=== PATIENT | male | born 1950 | race Caucasian/White ===

== ENCOUNTER → 2018-02-22 08:05 | Outpatient (CLI) | payer MEDICARE, SELFPAY ==
[2018-02-22 09:46] LABS: AST(SGOT) 24 U/L (15-37); Alanine Aminotransfer ALT/SGPT 29 U/L (16-61); Albumin, Serum 4.1 g/dL (3.2-5.0); Alkaline Phosphatase 79 U/L (45-117); Bilirubin, Direct 0.14 mg/dL (0.00-0.30); Cholesterol 220 mg/dL (200); Globulin 3.8 g/dL (2.2-4.2); High Density Lipoprotein 35 mg/dL; Protein, Total 7.9 g/dL (6.4-8.2); Triglycerides 229 mg/dL; Very Low Density Lipoprotein 46 mg/dL (5-40)
== END ==
PROVIDERS: Family Provider Physician Assistant Medical; PCP Family Medicine; Visit Provider Physician Assistant Medical
DX: E78.5 Hyperlipidemia, unspecified (principal); Z79.899 Other long term (current) drug therapy
CPT/HCPCS: 36415; 80061; 80076

== ENCOUNTER → 2018-08-02 14:07 | Outpatient (CLI) | payer MEDICARE, SELFPAY ==
[2018-08-02 15:04] LABS: Absolute Lymphocyte Count 1.73 X10^3/ul (0.83-4.51); Absolute Neutrophil Count 5.2 X10^3/uL (2.0-7.7); Basophil# 0.03 X10^3/uL; Basophil% 0.4 % (0-1); Eosinophil# 0.18 X10^3/uL; Eosinophils% 2.3 % (0-5); Hematocrit 43.7 % (40-54); Hemoglobin 15.4 g/dl (13.0-16.5); Lymphocyte # 1.73 X10^3/ul (4.0); Lymphocyte % 22.3 % (19-41); Mean Corp Hgb Conc 35.2 g/gl (32-36); Mean Corpuscular Hgb 30.6 pg (27.0-32.0); Mean Corpuscular Volume 86.7 fL (80-94); Mean Platelet Vol. 9.3 fl (6.2-12.0); Monocyte# 0.58 X10^3/uL; Monocyte% 7.5 % (0-10); Neutrophil # 5.23 X10^3/uL (2.7-7.7); Neutrophil % 67.4 % (47-70); Platelet Count 283 K/mm3 (150-450); RBC Distribution Width SD 40.4 fl (35.1-43.9); Red Blood Count 5.04 M/mm3 (4.6-6.2); White Blood Count 7.8 K/mm3 (4.4-11.0)
[2018-08-02 15:06] LABS: POSITIVE COUNT NO; POSITIVE DIFFERENTIAL NO; POSITIVE MORPHOLOGY NO
[2018-08-02 15:28] LABS: ALB/GLOB Ratio 1.1 RATIO (0.9-2.4); AST(SGOT) 26 U/L (15-37); Alanine Aminotransfer ALT/SGPT 36 U/L (16-61); Albumin, Serum 4.3 g/dL (3.2-5.0); Alkaline Phosphatase 81 U/L (45-117); Anion Gap 10 (5-15); BUN 16 mg/dL (7-18); BUN/Creat Ratio 13.7 RATIO (10-20); Chloride 105 mmol/L (98-107); Cholesterol 233 mg/dL (200); Creatinine, Serum 1.17 mg/dL (0.70-1.30); EST Glomerular Filtration Rate 66 mL/min (>60); Est Glom Filt Rate - Afr Amer 80 mL/min (>60); Globulin 3.8 g/dL (2.2-4.2); Glucose 77 mg/dL (74-106); High Density Lipoprotein 39 mg/dL; PSA,Total - Annual Screen 2.65 ng/mL (0.00-4.00); Potassium 3.9 mmol/L (3.5-5.1); Protein, Total 8.1 g/dL (6.4-8.2); Sodium Level 140 mmol/L (136-145); Triglycerides 250 mg/dL; Very Low Density Lipoprotein 50 mg/dL (5-40)
== END ==
PROVIDERS: Family Provider Family Medicine; PCP Family Medicine; Referring Provider Family Medicine; Visit Provider Family Medicine
DX: I25.10 Atherosclerotic heart disease of native coronary artery without angina pectoris (principal); E78.5 Hyperlipidemia, unspecified; Z51.81 Encounter for therapeutic drug level monitoring; Z12.5 Encounter for screening for malignant neoplasm of prostate
CPT/HCPCS: 36415; 80053; 80061; 84153; 85025; G0103

== ENCOUNTER → 2018-10-05 10:33 | Outpatient (CLI) | payer MEDICARE, SELFPAY ==
[2018-02-26 13:09] VITALS: BMI 29.0
[2018-10-05 12:10] LABS: AST(SGOT) 30 U/L (15-37); Alanine Aminotransfer ALT/SGPT 43 U/L (16-61); Albumin, Serum 4.1 g/dL (3.2-5.0); Alkaline Phosphatase 75 U/L (45-117); Bilirubin, Direct 0.14 mg/dL (0.00-0.30); Cholesterol 238 mg/dL (200); Globulin 3.9 g/dL (2.2-4.2); High Density Lipoprotein 41 mg/dL; Triglycerides 220 mg/dL; Very Low Density Lipoprotein 44 mg/dL (5-40)
== END ==
PROVIDERS: Family Provider Family Medicine; PCP Family Medicine; Referring Provider Physician Assistant Medical; Visit Provider Physician Assistant Medical
DX: E78.00 Pure hypercholesterolemia, unspecified (principal); I25.10 Atherosclerotic heart disease of native coronary artery without angina pectoris
CPT/HCPCS: 36415; 80061; 80076

== ENCOUNTER → 2019-04-11 11:47 | Outpatient (CLI) | payer MEDICARE, SELFPAY ==
[2018-10-14 13:06] VITALS: BMI 29.8
[2019-04-11 12:43] LABS: AST(SGOT) 25 U/L (15-37); Alanine Aminotransfer ALT/SGPT 38 U/L (16-61); Albumin, Serum 4.1 g/dL (3.2-5.0); Alkaline Phosphatase 79 U/L (45-117); Bilirubin, Direct 0.15 mg/dL (0.00-0.30); Cholesterol 174 mg/dL (200); Globulin 3.7 g/dL (2.2-4.2); High Density Lipoprotein 36 mg/dL; Protein, Total 7.8 g/dL (6.4-8.2); Triglycerides 213 mg/dL; Very Low Density Lipoprotein 43 mg/dL (5-40)
== END ==
PROVIDERS: Family Provider Family Medicine; PCP Family Medicine; Referring Provider Internal Medicine Cardiovascular Disease; Visit Provider Internal Medicine Cardiovascular Disease
DX: E78.5 Hyperlipidemia, unspecified (principal); I25.10 Atherosclerotic heart disease of native coronary artery without angina pectoris
CPT/HCPCS: 36415; 80061; 80076

== ENCOUNTER → 2019-05-02 05:57 | Outpatient (CLI) | payer MEDICARE, SELFPAY ==
[2019-04-14 14:30] VITALS: BMI 29.5
--- NOTE | 2019-05-02 16:57 | STRESSREP_ITS ---
Stress Test Report Exercise myocardial perfusion stress test. 68-year-old man with a history of shortness of breath coronary artery disease. Medications Plavix, metoprolol, pravastatin, losartan. Stress protocol: Resting EKG demonstrates normal sinus rhythm with a rate of 60 bpm normal dorsal noted resting blood pressure 730/70 8 mmHg. The patient exercised according to regular Monty protocol for a total duration of 9 minutes the maximum heart rate attained was 146 bpm which was 95% of maximum corrected heart rate and maximum workload was 10.1 metabolic equivalents. The patient maintained sinus rhythm throughout the recording. At rest there were no ST or T wave changes noted just ischemia at peak exercise upsloping ST changes were noted with no [facility] for ischemia. The resting blood pressure 130/78 with a peak blood pressure 178/68 mmHg. No clinical angina was noted. Myocardial perfusion protocol. 11.4 mCi of player piano technician 90 9M sestamibi was injected at rest. The patient exercised according to regular Monty protocol. At peak exercise 33.8 mCi of technetium 99m sestamibi was injected stress images obtained stress and rest volodymyr ges were reconstructed in comparing the short axis vertical and horizontal long axes. Gated images was obtained back Perfusion SPECT analysis: Review of the stress images demonstrate normal uptake of tracer noted in all areas of the myocardium. The resting images similarly demonstrate normal uptake of tracer noted in all areas of myocardium. No areas of reversibility and was just ischemia. Gated SPECT analysis: The gated ejection fraction is noted to be 59%. Conclusion: Normal exercise marker perfusion stress test at a high workload. No clinical angina noted No arrhythmias noted. Excellent functional capacity. Preserved ejection fraction.
== END ==
PROVIDERS: Family Provider Family Medicine; PCP Family Medicine; Referring Provider Physician Assistant Medical; Visit Provider Physician Assistant Medical
DX: R06.09 Other forms of dyspnea (principal); I25.10 Atherosclerotic heart disease of native coronary artery without angina pectoris
CPT/HCPCS: 78452; 93017; A9500; A4216

== ENCOUNTER → 2019-08-23 13:19 | Outpatient (CLI) | payer MEDICARE, SELFPAY ==
[2018-10-14 13:06] VITALS: BMI 29.8
[2019-04-14 14:30] VITALS: BMI 29.5
[2019-08-23 15:34] LABS: Absolute Lymphocyte Count 1.56 X10^3/uL (0.83-4.51); Absolute Neutrophil Count 4.1 X10^3/uL (2.0-7.7); Basophil# 0.05 X10^3/uL; Basophil% 0.8 % (0-1); Eosinophil# 0.22 X10^3/uL; Eosinophils% 3.4 % (0-5); Hematocrit 44.8 % (40-54); Hemoglobin 15.3 g/dL (13.0-16.5); Lymphocyte # 1.56 X10^3/ul (4.0); Lymphocyte % 24.5 % (19-41); Mean Corp Hgb Conc 34.2 g/dL (32-36); Mean Corpuscular Hgb 30.5 pg (27.0-32.0); Mean Corpuscular Volume 89.4 fL (80-94); Mean Platelet Vol. 9.2 fl (6.2-12.0); Monocyte# 0.47 X10^3/uL; Monocyte% 7.4 % (0-10); NRBC Flagged by Analyzer 0 % (0-5); Neutrophil # 4.05 X10^3/uL (2.7-7.7); Neutrophil % 63.4 % (47-70); Platelet Count 269 K/mm3 (150-450); RBC Distribution Width CV 12.8 % (11.6-14.6); RBC Distribution Width SD 41.7 fl (35.1-43.9); Red Blood Count 5.01 M/mm3 (4.6-6.2); White Blood Count 6.4 K/mm3 (4.4-11.0)
[2019-08-23 16:44] LABS: ALB/GLOB Ratio 1.3 RATIO (0.9-2.4); AST(SGOT) 31 U/L (15-37); Alanine Aminotransfer ALT/SGPT 45 U/L (16-61); Albumin, Serum 4.4 g/dL (3.2-5.0); Alkaline Phosphatase 75 U/L (45-117); Anion Gap 8 (5-15); BUN 15 mg/dL (7-18); BUN/Creat Ratio 14.3 RATIO (10-20); Chloride 105 mmol/L (98-107); Creatinine, Serum 1.05 mg/dL (0.70-1.30); EST Glomerular Filtration Rate 75 mL/min (>60); Est Glom Filt Rate - Afr Amer 90 mL/min (>60); Globulin 3.5 g/dL (2.2-4.2); Glucose 69 mg/dL (74-106); PSA,Total - Annual Screen 1.65 ng/mL (0.00-4.00); Potassium 3.9 mmol/L (3.5-5.1); Protein, Total 7.9 g/dL (6.4-8.2); Sodium Level 139 mmol/L (136-145)
== END ==
PROVIDERS: Family Provider Family Medicine; PCP Family Medicine; Referring Provider Family Medicine; Visit Provider Family Medicine
DX: I25.10 Atherosclerotic heart disease of native coronary artery without angina pectoris (principal); E78.5 Hyperlipidemia, unspecified; Z12.5 Encounter for screening for malignant neoplasm of prostate; Z51.81 Encounter for therapeutic drug level monitoring
CPT/HCPCS: 36415; 80053; 84153; 85025; G0103

== ENCOUNTER → 2020-04-11 08:32 | Outpatient (CLI) | payer MEDICARE, SELFPAY ==
[2019-04-14 14:30] VITALS: BMI 29.5
[2020-04-11 09:36] LABS: AST(SGOT) 27 U/L (15-37); Alanine Aminotransfer ALT/SGPT 47 U/L (16-61); Albumin, Serum 4.1 g/dL (3.2-5.0); Alkaline Phosphatase 73 U/L (45-117); Bilirubin, Direct 0.17 mg/dL (0.00-0.30); Cholesterol 187 mg/dL (200); Globulin 3.8 g/dL (2.2-4.2); High Density Lipoprotein 38 mg/dL; Protein, Total 7.9 g/dL (6.4-8.2); Triglycerides 218 mg/dL; Very Low Density Lipoprotein 44 mg/dL (5-40)
== END ==
PROVIDERS: PCP Family Medicine; Referring Provider Physician Assistant Medical; Visit Provider Physician Assistant Medical
DX: E78.5 Hyperlipidemia, unspecified (principal)
CPT/HCPCS: 36415; 80061; 80076

== ENCOUNTER 2020-06-25 17:36 | Emergency (ER) | payer MEDICARE, SELFPAY ==
[2020-04-12 14:37] VITALS: BMI 29.7
[2020-06-25 17:36] VITALS: BP 127/87; PULSE 133; RESP 24; TEMP 37.6; O2SAT 93; BMI 29.8
--- NOTE | 2020-06-25 18:01 | RAD_ITS ---
STUDY: X-RAY CHEST REASON FOR EXAM: Male, 70 years old. Chest pain, palpitations. Patient believes to have a-fib. TECHNIQUE: Single AP portable view of the chest. COMPARISON: 02/29/2016. FINDINGS: The lungs are clear and expanded. There is no demonstrated pleural abnormality. Normal size heart. Normal mediastinum and shannan. Normal visualized pulmonary arteries. Normal visualized aortic arch and descending thoracic aorta. Normal visualized thoracic spine. Normal visualized ribs, clavicles, and shoulders. There is no demonstrated abnormality of the visualized soft tissue structures of the upper abdomen. RAD/Chest 1 View (Portable) IMPRESSION: Normal x-ray examination of the chest. Electronically Signed: Olivia Estevez MD at 18:57 EDT Tel , Service support ,
--- NOTE | 2020-06-25 18:01 | EKG12_ITS ---
Test Reason : Blood Pressure : / mmHG Vent. Rate : 133 BPM Atrial Rate : 133 BPM P-R Int : 164 ms QRS Dur : 094 ms QT Int : 284 ms P-R-T Axes : 078 027 029 degrees QTc Int : 422 ms Sinus tachycardia Nonspecific ST abnormality Abnormal ECG Confirmed by MAMADOU GALO, MERY ([id number]), newspaper copy editor SOL MUSA ([id number]) on 06/27/2020 1:03:14 PM Referred By: KETTY Confirmed By:MERY CEDILLO MD
[2020-06-25] MEDS: 0.9% Normal Saline 1,000 ML 1000 ML IV (18:10)
[2020-06-25] MEDS: Aspirin 81 MG TAB.CHEW 324 MG PO (18:11)
[2020-06-25] MEDS: dilTIAZem 25 MG/5 ML Vial 20 MG IV BOLUS (18:12)
[2020-06-25 18:39] LABS: Anion Gap 5 (5-15); BUN 18 mg/dL (7-18); BUN/Creat Ratio 14.9 RATIO (10-20); Calcium,Total 9.2 mg/dL (8.5-10.1); Chloride 107 mmol/L (98-107); Creatinine, Serum 1.21 mg/dL (0.70-1.30); EST Glomerular Filtration Rate 63 mL/min (>60); Est Glom Filt Rate - Afr Amer 76 mL/min (>60); Estimated Creatinine Clearance 61.37 ml/min; Glucose 103 mg/dL (74-106); Magnesium 2.3 mg/dL (1.6-2.6); Potassium 3.9 mmol/L (3.5-5.1); Sodium Level 136 mmol/L (136-145); Thyroid Stim Hormone (TSH) 1.15 uIU/mL (0.358-3.74)
[2020-06-25 18:47] LABS: Absolute Lymphocyte Count 1.28 X10^3/uL (0.83-4.51); Absolute Neutrophil Count 4.5 X10^3/uL (2.0-7.7); Basophil# 0.04 X10^3/uL; Basophil% 0.6 % (0-1); Eosinophil# 0.04 X10^3/uL; Eosinophils% 0.6 % (0-5); Hematocrit 45.4 % (40-54); Hemoglobin 15.3 g/dL (13.0-16.5); Lymphocyte # 1.28 X10^3/ul (4.0); Lymphocyte % 19.6 % (19-41); Mean Corp Hgb Conc 33.7 g/dL (32-36); Mean Corpuscular Hgb 29.8 pg (27.0-32.0); Mean Corpuscular Volume 88.3 fL (80-94); Mean Platelet Vol. 8.9 fl (6.2-12.0); Monocyte# 0.64 X10^3/uL; Monocyte% 9.8 % (0-10); NRBC Flagged by Analyzer 0 % (0-5); Neutrophil # 4.49 X10^3/uL (2.7-7.7); Neutrophil % 68.9 % (47-70); Platelet Count 242 K/mm3 (150-450); RBC Distribution Width CV 12.5 % (11.6-14.6); RBC Distribution Width SD 40.2 fl (35.1-43.9); Red Blood Count 5.14 M/mm3 (4.6-6.2); White Blood Count 6.5 K/mm3 (4.4-11.0)
[2020-06-25 19:09] LABS: International Normalized Ratio 1.1; Prothrombin Time (Protime)PT. 13.3 SECONDS (11.7-14.9)
[2020-06-25 19:10] LABS: Partial Thromboplast Time 29.8 Seconds (24.1-36.2)
[2020-06-25 19:43] VITALS: BP 102/67; PULSE 84; RESP 18; O2SAT 94
--- NOTE | 2020-06-25 20:24 | ED.DCSUM_ITS ---
- ER Visit Summary Date of Service: 06/25/20 Chief Complaint: Heart racing History of Present Illness: The patient is a 70 M with a history of atrial fibrillation and coronary disease. He reports heart racing and palpitations over the past week. He had 2 brief episodes of chest pain today. He feels weak so he came in for an evaluation. Physical Examination: Tachycardia. Otherwise vitals unremarkable. Alert and oriented. No acute distress. Heart is irregularly irregular. Lungs clear. Skin, calves, pulses unremarkable. Test Results: EKG was read by the machine is sinus tach at a rate of 133. Labs and chest x-ray unremarkable. Emergency Department Course and Treatment: On my evaluation, the patient had an irregular pulse. He was treated with Cardizem. Heart rate improved to the 80s. Appears to be sinus rhythm. His work-up was unremarkable. He was discussed with cardiology and they will follow-up with him tomorrow. They did not feel that he needed to be admitted. Treatment Plan: As above Disposition: Discharge Impression: A. fib with RVR This note was generated with [employer] dictation software. It may contain incorrect words, spelling, and punctuation that were not noted in review of the chart prior to signing ED Disposition - Plan for ED Patient: Disposition: Home or Assisted Living Instructions: ED AFIB Referrals: Kenyon Guy MD [STAFF PHYSICIAN] -
--- NOTE | 2020-06-25 20:24 | ED.DEP ---
ED Disposition - Plan for ED Patient: Instructions: ED AFIB Referrals: Kenyon Guy MD [STAFF PHYSICIAN] -
[2020-06-25 20:37] VITALS: BP 139/75; PULSE 90; RESP 17; O2SAT 93
== END 2020-06-25 20:41 | disposition home or self-care (01) ==
LOC: ED 18:24
PROVIDERS: Emergency Provider Emergency Medicine; PCP Family Medicine
DX: I48.91 Unspecified atrial fibrillation (principal); I25.10 Atherosclerotic heart disease of native coronary artery without angina pectoris; E78.00 Pure hypercholesterolemia, unspecified; Z87.891 Personal history of nicotine dependence; Z95.5 Presence of coronary angioplasty implant and graft
CPT/HCPCS: 71045; 80048; 83735; 84443; 84484; 85025; 85610; 85730; 93005; 96360; 99285; J7030; A4216

== ENCOUNTER 2020-07-02 06:51 | Day surgery (SDC) | payer MEDICARE, SELFPAY ==
[2020-06-26 10:01] VITALS: BMI 29.2
--- NOTE | 2020-06-26 11:39 | HP_ITS ---
HPI HPI History of Present Illness Surgical H&P: Yes Details: MITCH RUBY, is a 70-year-old man that presents here for an urgent appointment. He has a history of coronary artery disease status post angioplasty and stenting of the left anterior descending artery, angioplasty of the first ostial and second diagonal branch. He also had a history of atrial flutter and underwent an ablation and his cardiomyopathy resolved. It was felt that this was secondary to tachycardia mediation. He was in the emergency room yesterday with concerns over his heart racing. His EKG during his emergency room visit demonstrated sinus tach with a heart rate of 133. He was treated with Cardizem his heart rate decreased into the 80s. Pt sts that he notices after he eats that his heart starts pounding. He was riding his Bike yesterday, he noticed when he was done he felt weak. He was dizzy. He had indigestion. He also had a fast pulse. He finds that these symptoms have been going on for a few weeks. He feels that his energy has been getting worse. He is having trouble climbing steps. He does not have any chest pain but does have heart burn. He is concerned because these are similar to what he had prior to his previous stenting. He sts that his metoprolol has changed. He wonders if this is contributing. He did call the pharmacy- he was told that his insurance will not cover it. He has not checked his BP readings at home. Intake Vital Signs 06/26/20 Height 5 ft 11 in 06/26/20 Weight: 210 lb 06/26/20 BMI 29.2 06/26/20 BP 107/65 06/26/20 Blood Pressure Location Lt brachial 06/26/20 Position Sitting 06/26/20 Respiration 18 06/26/20 Pulse 80 06/26/20 Pulse Source Monitor 06/26/20 Pulse Oximetry (%) 95 Intake Visit Reasons: ER 8-24 for CP, still weak, heartburn, dizzy Icu Rn Required: No Accompanied by: None Is patient in pain?: No Allergies Bkojqnn-Twz-Pai Reductase Inhibitor Adverse Reaction (Severe, Verified 06/26/20 10:01) mylagias/tendon rupture Medications glucosamine sulfate 1,000 mg capsule 2,000 mg PO BID cap 04/14/19 [History Confirmed 06/26/20] losartan 50 mg tablet 50 mg PO DAILY #90 tab 04/20/20 [Rx Confirmed 06/26/20] pravastatin 40 mg tablet 40 mg PO QHS #90 tab 02/20/20 [Rx Confirmed 06/26/20] clopidogrel 75 mg tablet 75 mg PO DAILY #90 tab 03/05/20 [Rx Confirmed 06/26/20] metoprolol succinate 50 mg tablet,extended release 24 hr 50 mg PO DAILY #90 tab 03/05/20 [Rx Confirmed 06/26/20] nitroglycerin 0.4 mg sublingual tablet 0.4 mg SUBLINGUAL Q5M PRN #25 tab 06/14/20 [Rx Confirmed 06/26/20] [facility] Medical History Vertebral artery stenosis (Chronic) Atherosclerotic heart disease of [place] coronary artery without angina pectoris (Chronic) Paroxysmal atrial fibrillation (Chronic) Paroxysmal atrial flutter (Chronic) Hypertriglyceridemia (Chronic) Hyperlipidemia (Chronic) History of CVA (cerebrovascular accident) (Chronic 2015) Palpitations (Resolved) Vertigo (Resolved) Surgical History History of coronary artery stent placement (Resolved 09/18/11) History of knee replacement (Resolved) History of nasal septoplasty (Resolved) History of repair of rotator cuff (Resolved) Hx of appendectomy (Resolved) Hx of hernia repair (Resolved) Family History Father No problems noted. Mother No problems noted. Social History (Updated 06/26/20 @ 11:39 by APOORVA Quinonez) Smoking Status: Former smoker how long ago did patient quit smokin-30 years ago alcohol intake: current alcohol intake frequency: holidays/special occasions only Alcohol type: beer substance use type: does not use caffeine: No what type of physical activity do you participate in: bicycling frequency: 3-4 times per week duration: 45-60 minutes/day seatbelt use: always do you feel safe at home: Yes ROS Const Const: Positive for fatigue and weakness; negative for fever(s) or headache(s) Eyes Eyes: Negative for blind spots, loss of peripheral vision or transient loss of vision ENT ENT: Positive for dizziness; negative for headache(s), tinnitus or Nosebleed/epistaxis Cardio Chest Pain: Yes Palpitations: Yes Edema: None Muscle aches with walking: None Resp Respiratory: Positive for SOB with activity; negative for SOB at rest, SOB orthopnea\SOB lying down or Cough GI GI: Positive for heartburn; negative nausea, vomiting or vomiting blood/hematemesis : Negative for hematuria Musc Musc: Negative for muscle aches/ myalgia Neuro Neuro: Positive for dizziness and weakness; negative for lightheadedness, near syncope, syncope, orthostatic symptoms or headache(s) Joselito Hematologic/Lymphatic: Negative for easy bleeding Endo Endo: Positive for fatigue Cardiology Exam Const Appearance: cooperative, no acute distress and well developed Orientation: alert, awake and oriented x3 Head Head: normocephalic and atraumatic Mouth: moist mucous membranes Eyes General: appearance normal, both eyes and all related structures Conjunctivae: conjunctivae normal Pupils: PERRL EOM: EOM intact bilaterally Neck Neck: normal visual inspection, no lymphadenopathy and no JVD Carotids: Negative bruit Neck Mass: Negative Neck mass Chest Chest inspection: normal inspection of the chest and symmetric chest movement Auscultation: Bilateral: Clear to Auscultation Cardio Palpation: normal PMI Rate: regular rate Rhythm: regular rhythm Heart sounds: S1 normal and S2 normal; negative rub, gallop or murmur GI GI: normal to inspection, soft, no hepatosplenomegaly and bowel sounds present; negative tender Neuro General: alert, awake, oriented x3, CN's II-XI intact bilaterally and moves all extremities Extremities Pulses: Normal: Right Posterior Tibial Pulse, Left Posterior Tibial Pulse, Right Radial Pulse, Left Radial Pulse Lower Extremity Edema: None: Bilateral Psych Psychological: normal affect Assessment & Plan 1. Coronary artery disease with angina pectoris I25.119 Plan Patient does have symptoms concerning for angina. He had a stress test last year which was negative for ischemia at a high workload. He states that he is having symptoms similar to what he had previous to his stenting in 2010. He states that he has having these symptoms during exercise which he exercises at a high workload. Would like to proceed with a diagnostic heart catheterization. Patient is agreeable with this. We will also have him resume his baby aspirin. Patient Instructions Your heart cath is scheduled for . You will arrive at 0700 and your procedure is at 0830. You can not have anything to eat or drink after midnight. In the morning take your Plavix, losartan. Also start an ASA. You will need a production truck driver. If you have a stent placed you will need to spent the night 2. Paroxysmal atrial fibrillation I48.0 RFA 04/2011 Plan EKG done in the emergency room demonstrated sinus tachycardia. If heart catheterization does not demonstrate any significant coronary disease will then consider proceeding with a Holter monitor to further evaluate his symptoms. Orders Orders: 12 Lead EKG performed by [facility] Today 3. Pure hypercholesterolemia E78.00 Plan Patient will continue with his moderate intensity statin. Plan Detail Other Orders Orders: 12 Lead EKG performed by [facility] Today I25.10, Z95.5 Additional Comments This was discussed with Dr. Guy, he agrees with plan of care. Follow Up 06/26/20 (august with DATA ENTRY MACHINE OPERATOR/MMM) Coding Level of Care Code Off vis,est,level 4 Diagnoses Coronary artery disease with angina pectoris I25.119 Paroxysmal atrial fibrillation I48.0 Pure hypercholesterolemia E78.00 ??Hyperlipidemia type: pure hypercholesterolemia Coding Level of Care Code Off vis,est,level 4 Diagnoses Coronary artery disease with angina pectoris I25.119 Paroxysmal atrial fibrillation I48.0 Pure hypercholesterolemia E78.00 ??Hyperlipidemia type: pure hypercholesterolemia Supplemental Info Supplemental Information Stress test 05/2019: Normal exercise marker perfusion stress test at a high workload. No clinical angina noted No arrhythmias noted. Excellent functional capacity. Preserved ejection fraction. Echocardiogram in 2013 demonstrates an ejection fraction of 55%. Mild mitral and tricuspid insufficiency. Labs LDL Cholesterol 105 mg/dL (0-130) 04/11/20 HDL Cholesterol 38 mg/dL (40-) L 04/11/20 Triglycerides 218 mg/dL (-199) H 04/11/20 VLDL Cholesterol 44 mg/dL (5-40) H 04/11/20 Diagnostics Electrocardiogram 06/26/20 Stress Test Nuclear Medicine 05/02/19 Stress Test 05/02/19 Chest X-Ray 06/25/20 06/26/20 1139 <Electronically signed by Gabby Colon> Date _ Gabby GUERIN
[2020-06-27 08:48] VITALS: BMI 29.2
--- NOTE | 2020-07-02 09:26 | CL.D_ITS ---
Patient Name: MITCH RUBY Study Date: 07/02/2020 Performing: Kenyon Guy MD Ht: 70.86 inches 180 cm : 1950 Wt: 209.44 lbs 95 kg Age: 70 Gender: male BSA: 2.15 PROCEDURE(S) PERFORMED [id number]/COR/LV CLINICAL PROFILE AND INDICATIONS Indications: Suspected CAD Heart Failure: None Stress/Imaging Stress/Image Study Performed: No CAD Presentations: Unstable angina. CONCLUSIONS Previously placed stent in the left anterior descending artery which is patent with mild disease note d in the diagonal vessel, mild disease noted in the left circumflex artery and the right coronary art kimberly. No significant obstructive coronary disease noted RECOMMENDATIONS Medical therapy DESCRIPTION OF PROCEDURE The patient arrived to the procedure lab. The risks and benefits of the procedure as well as a full d escription of our services here and current unavailability of surgical backup were fully explained to the patient and/or their significant other prior to the catheterization. The Timeout was completed, verifying the correct patient and procedure. The patient's procedural site was prepped and draped in the usual fashion. Local anesthetic was given subcutaneously to right radial region with Lidocaine 2% . Using a modified Seldinger technique, arterial access was obtained via the right radial artery, a 6 Fr sheath was inserted. Left Coronary Artery selective angiography was performed in multiple views u sing a 5 Fr. 4.0 [place] catheter. Right Coronary Artery selective angiography was then performed in mu ltiple views using a 5 Fr. 4.0 [place] catheter. Left Ventriculography was performed in NORMAN projection using a 5 Fr. Pigtail catheter. LV to AO pullback pressures were then recorded.The arterial sheath was pulled and a TR Band was applied for hemostasis 10 cc's of air CORONARY ANGIOGRAPHY DOMINANCE: Right Dominant LEFT HEART ASSESSMENT Left Ventricular Ejection Fraction: by LV Gram 60 % Normal LV wall motion Normal Left Ventricular systolic function LEFT MAIN: Mild calcification, No significant disease noted LEFT ANTERIOR DESCENDING ARTERY: Mild luminal irregularities less than 30%, Previously placed stent i s patent DIAGONAL 1: Proximal - Moderate luminal irregularities up to 50% DIAGONAL 2: Proximal - Mild luminal irregularities less than 30% CIRCUMFLEX ARTERY: Mild luminal irregularities less than 30% RIGHT CORONARY ARTERY: Mild luminal irregularities less than 30% COMPLICATIONS No Complications PROCEDURE MEDICATIONS Versed 1 mg IV Fentanyl 50 mcg IV Versed 1 mg IV Versed 1 mg IV Oxygen: 2 L/min via nasal cannula Heparin given IA 07/02/2020 08:56:19 Verapamil 2.5mg, Ntg 100mcgs, 2000 units of Heparin given IA 07/02/2020 08:56:19 SUMMARY OF HEMODYNAMIC DATA Time AIR REST ECG 07:16:01 AO 103/62 (80) SA 08:58:13 LV 98/-7, -3 09:06:36 LV 85/-5, -3 09:06:42 LV 100/-1, 1 09:07:14 LV 91/-1, 1 09:07:21 LVp 96/-2, 0 09:07:26 AOp 110/63 (84) 09:07:31 Signed By Kenyon Guy MD On 07/02/2020 09:25:42 Kenyon Guy MD
== END 2020-07-02 10:45 | disposition home or self-care (01) ==
LOC: CLSP 06:52
PROVIDERS: PCP Family Medicine; Referring Provider Internal Medicine Cardiovascular Disease; Visit Provider Internal Medicine Cardiovascular Disease
DX: I25.119 Atherosclerotic heart disease of native coronary artery with unspecified angina pectoris (principal); Z87.891 Personal history of nicotine dependence; I48.0 Paroxysmal atrial fibrillation; Z95.5 Presence of coronary angioplasty implant and graft
CPT/HCPCS: 93458; 99152; 99153; J7040; C1769; C1894; Q9967

== ENCOUNTER → 2020-08-28 08:41 | Outpatient (CLI) | payer MEDICARE, SELFPAY ==
[2020-06-27 08:48] VITALS: BMI 29.2
[2020-08-28 10:33] LABS: PSA,Total - Annual Screen 2.12 ng/mL (0.00-4.00)
== END ==
PROVIDERS: PCP Family Medicine; Referring Provider Family Medicine; Visit Provider Family Medicine
DX: Z12.5 Encounter for screening for malignant neoplasm of prostate (principal)
CPT/HCPCS: 36415; 84153; G0103

== ENCOUNTER → 2021-08-26 07:31 | Outpatient (CLI) | payer MEDICARE, SELFPAY ==
[2021-08-26 09:19] LABS: AST(SGOT) 32 U/L (15-37); Alanine Aminotransfer ALT/SGPT 48 U/L (16-61); Albumin, Serum 3.9 g/dL (3.2-5.0); Alkaline Phosphatase 79 U/L (45-117); Bilirubin, Direct 0.14 mg/dL (0.00-0.30); Cholesterol 182 mg/dL (200); High Density Lipoprotein 36 mg/dL; Protein, Total 7.9 g/dL (6.4-8.2); Triglycerides 294 mg/dL; Very Low Density Lipoprotein 59 mg/dL (5-40)
== END ==
PROVIDERS: Physician Assistant Medical; PCP Family Medicine; Referring Provider Family Medicine; Visit Provider Family Medicine
DX: I25.10 Atherosclerotic heart disease of native coronary artery without angina pectoris (principal); E78.5 Hyperlipidemia, unspecified; Z12.5 Encounter for screening for malignant neoplasm of prostate
CPT/HCPCS: 36415; 80061; 80076

== ENCOUNTER → 2021-08-29 14:35 | Outpatient (CLI) | payer MEDICARE, SELFPAY ==
[2021-08-29 15:50] LABS: PSA,Total - Annual Screen 2.13 ng/mL (0.00-4.00)
== END ==
PROVIDERS: PCP Family Medicine; Visit Provider Family Medicine
DX: Z12.5 Encounter for screening for malignant neoplasm of prostate (principal)
CPT/HCPCS: 36415; 84153; G0103

== ENCOUNTER → 2022-08-28 | Outpatient (CLI) | payer MEDICARE, SELFPAY ==
[2022-08-28 09:25] LABS: AST(SGOT) 22 U/L (15-37); Alanine Aminotransfer ALT/SGPT 32 U/L (16-61); Albumin, Serum 3.8 g/dL (3.2-5.0); Alkaline Phosphatase 79 U/L (45-117); Bilirubin, Direct 0.15 mg/dL (0.00-0.30); Cholesterol 159 mg/dL (200); Globulin 3.8 g/dL (2.2-4.2); High Density Lipoprotein 37 mg/dL; Protein, Total 7.6 g/dL (6.4-8.2); Triglycerides 201 mg/dL; Very Low Density Lipoprotein 40 mg/dL (5-40)
== END | disposition home or self-care (01) ==
LOC: LAB 08:30
PROVIDERS: PCP Family Medicine; Visit Provider Physician Assistant Medical
DX: E78.00 Pure hypercholesterolemia, unspecified (principal)
CPT/HCPCS: 36415; 80061; 80076

== ENCOUNTER → 2023-04-30 | Outpatient (CLI) | payer MEDICARE, SELFPAY ==
[2023-04-30 17:38] LABS: Absolute Lymphocyte Count 1.92 X10^3/uL (0.83-4.51); Absolute Neutrophil Count 4.1 X10^3/uL (2.0-7.7); Basophil# 0.04 X10^3/uL; Basophil% 0.6 % (0-1); Eosinophil# 0.38 X10^3/uL; Eosinophils% 5.5 % (0-5); Hematocrit 41.1 % (40-54); Hemoglobin 13.7 g/dL (13.0-16.5); Lymphocyte # 1.92 X10^3/ul (0.83-4.51); Lymphocyte % 27.5 % (19-41); Mean Corp Hgb Conc 33.3 g/dL (32-36); Mean Corpuscular Hgb 30.4 pg (27.0-32.0); Mean Corpuscular Volume 91.3 fL (80-94); Monocyte# 0.52 X10^3/uL; Monocyte% 7.5 % (0-10); NRBC Flagged by Analyzer 0 % (0-5); Neutrophil # 4.09 X10^3/uL (2.7-7.7); Neutrophil % 58.6 % (47-70); Platelet Count 284 K/mm3 (150-450); RBC Distribution Width CV 13.5 % (11.6-14.6); RBC Distribution Width SD 44.9 fl (35.1-43.9)
[2023-04-30 17:52] LABS: Anion Gap 4 (5-15); BUN 15 mg/dL (7-18); BUN/Creat Ratio 14.3 RATIO (10-20); Calcium,Total 8.9 mg/dL (8.5-10.1); Chloride 108 mmol/L (98-107); Creatinine, Serum 1.05 mg/dL (0.70-1.30); EST Glomerular Filtration Rate 74 mL/min (>60); Est Glom Filt Rate - Afr Amer 89 mL/min (>60); Glucose 102 mg/dL (74-106); PSA,Total - Annual Screen 3.17 ng/mL (0.00-4.00); Sodium Level 139 mmol/L (136-145)
== END | disposition home or self-care (01) ==
LOC: LAB.FUTURE 15:45 → BFHLAB 15:45
PROVIDERS: PCP Family Medicine; Referring Provider Family Medicine; Visit Provider Family Medicine
DX: I25.10 Atherosclerotic heart disease of native coronary artery without angina pectoris (principal); Z51.81 Encounter for therapeutic drug level monitoring; Z12.5 Encounter for screening for malignant neoplasm of prostate
CPT/HCPCS: 36415; 80048; 84153; 85025; G0103

== ENCOUNTER → 2023-11-13 | Outpatient (CLI) | payer MEDICARE, SELFPAY ==
--- OUTSIDE RECORDS SUMMARY | 2023-11-13 09:20 | XMS RPT_ITS | CCD ---
Author Name Unknown Address [address] [place] [address] Organization [facility] Care Team Providers Care Supplier Diversity Director Name Role Phone LORA IRVING Unavailable Unavailable Allergies Allergy Classification Reported Allergen(s) Allergy Type Date of Onset Reaction(s) Facility (1 source) Cortisone; Translations: [[facility] Problem Classification Problem Date Documented Da te Episodic/Chronic Unclassified (1 source) Unknown / UNK(Unknown) Onset: 04-16-2016 Encounters Encounter Date Encounter Type Care Provider Facility Start: 04-16-2016 End: 04-16-2016 Patient encounter procedure LORA IRVING Mendoza [place] Summary Purpose Family History No Family History Records Found Advance Directives No Advanced Directives Records Found Additional Source Comments (unrecognized sect ion and content) No Status Records Found INFORMATION SOURCE (unrecogn ized section and content) FOR RECORDS PERTAINING TO PATIENTS WHO ARE OR HAVE BEEN ENROLLED IN A CHEMICAL DEPENDENCY/SUBSTANCEABUSE PROGRAM, SOME INFORMATION MAY BE OMITTED. This clinical summary was aggregated from multiple sources. Caution should be exercised in using it in the provision of clinical care. This summary normalizes information from multiple sources, and as a consequence, information in this document may materially change the coding, format and clinical context of patient data. In addition, data may be omitted in some cases. CLINICAL DECISIONS SHOULD BE BASED ON THE PRIMARY CLINICAL RECORDS. [employer] provides no warranty or guarantee of the accuracy or completeness of information in this document.
[2023-11-13 09:45] LABS: AST(SGOT) 26 U/L (15-37); Alanine Aminotransfer ALT/SGPT 35 U/L (16-61); Albumin, Serum 3.9 g/dL (3.2-5.0); Alkaline Phosphatase 83 U/L (45-117); Bilirubin, Direct 0.14 mg/dL (0.00-0.30); Cholesterol 178 mg/dL (200); Globulin 3.8 g/dL (2.2-4.2); High Density Lipoprotein 40 mg/dL; Protein, Total 7.7 g/dL (6.4-8.2); Triglycerides 211 mg/dL; Very Low Density Lipoprotein 42 mg/dL (5-40)
== END | disposition home or self-care (01) ==
LOC: LAB 08:57
PROVIDERS: PCP Family Medicine; Referring Provider Internal Medicine Cardiovascular Disease; Visit Provider Internal Medicine Cardiovascular Disease
DX: I25.10 Atherosclerotic heart disease of native coronary artery without angina pectoris (principal); Z95.5 Presence of coronary angioplasty implant and graft; E78.00 Pure hypercholesterolemia, unspecified
CPT/HCPCS: 36415; 80061; 80076

== ENCOUNTER → 2023-12-24 | Outpatient (CLI) | payer MEDICARE, SELFPAY ==
[2023-12-24 17:57] LABS: Erythrocyte Sedimentation Rate 16 mm/hr (0-20)
[2023-12-24 18:36] LABS: Syphilis Antibodies Non-reactive
[2023-12-24 18:44] LABS: CRP < 2.90 mg/L (0.0-3.0); Rheumatoid Factor < 10.0 IU/mL (<15)
[2023-12-26 15:08] LABS: CCP IgG Antibodies 3 units (0-19)
[2023-12-28 15:08] LABS: ANTINUCLEAR ANTIBODIES DIRECT Negative (Negative)
== END | disposition home or self-care (01) ==
LOC: BFHLAB 14:29
PROVIDERS: PCP Family Medicine; Visit Provider Family Medicine
DX: M13.0 Polyarthritis, unspecified (principal); M25.441 Effusion, right hand
CPT/HCPCS: 36415; 85652; 86038; 86140; 86200; 86225; 86235; 86431; 86780

== ENCOUNTER → 2024-01-15 | Outpatient (CLI) | payer MEDICARE, SELFPAY ==
--- NOTE | 2024-01-15 06:37 | ECHOD_ITS ---
Reason For Study: CAD/ASHD Procedure This was a 2D Doppler, Color Flow transthoracic echocardiogram. Exam performed in department. Left Ventricle Normal LV size. Left ventricular systolic function is normal. The estimated ejection fraction is 60 %. Stage 1 diastolic dysfunction. No regional wall motion abnormalities noted. Right Ventricle Normal RV size. Normal systolic function. Atria Normal left atrium. Normal right atrium. Mitral Valve Normal mitral valve. Tricuspid Valve Normal tricuspid valve. Mild tricuspid valve insufficiency. Pulmonary artery systolic pressure is 28 mmHg. Aortic Valve Trisinus/trileaflet aortic valve. Pulmonic Valve Normal pulmonic valve. Great Vessels Normal aortic root. The pulmonary artery is normal size. Inferior vena cava collapse with respiration. Pericardium/Pleural No pericardial effusion. MMode/2D Measurements & Calculations LVIDd: 4.0 cm IVSd: 1.3 cm Ao root diam: 3.8 cm LVIDs: 2.7 cm LVPWd: 0.88 cm LA dimension: 3.7 cm RVDd: 3.4 cm FS: 32.6 % LAV(MOD-bp): 50.0 ml LA A4 area: 18.4 cm2 RA A4 area: 17.9 cm2 LAV(MOD-bp) Indexed: 23.0 ml/m2 LAV(MOD-sp2): 44.1 ml LAV(MOD-sp4): 50.3 ml TAPSE: 1.7 cm Time Measurements MV dec time: 0.20 sec Doppler Measurements & Calculations MV E max hakeem: 45.1 cm/sec Lat Peak E' Hakeem: 9.2 cm/sec Med Peak E' Hakeem: 10.0 cm/sec MV A max hakeem: 76.8 cm/sec E/E' lat: 4.9 E/E' med: 4.5 MV E/A: 0.59 MV V2 max: 66.1 cm/sec MV P1/2t max hakeem: 45.5 cm/sec Ao V2 max: 111.0 cm/sec MV max P.7 mmHg MV P1/2t: 62.8 msec Ao max P.9 mmHg MV V2 mean: 33.5 cm/sec MV mean P.53 mmHg MV dec slope: 212.4 cm/sec2 MV V2 VTI: 16.3 cm MVA(P1/2t): 3.5 cm2 LV V1 max: 71.4 cm/sec PA V2 max: 136.3 cm/sec TR max hakeem: 243.0 cm/sec LV V1 max P.0 mmHg TR max P.6 mmHg ECHO/Echo Complete Interpretation Summary Normal LV size. Left ventricular systolic function is normal. The estimated ejection fraction is 60 %. Stage 1 diastolic dysfunction. Structurally normal valves. Ordering Physician: Kenyon Guy Referring Physician: Kenyon Guy Performed By: Krishna Mendiola RCS
--- OUTSIDE RECORDS SUMMARY | 2024-01-15 06:38 | XMS RPT_ITS | CCD ---
Author Name Unknown Address [address] [place] [address] Organization [facility] Care Team Providers Care Merchandise Flow Team Leader Name Role Phone LORA IRVING Unavailable Unavailable Allergies Allergy Classification Reported Allergen(s) Allergy Type Date of Onset Reaction(s) Facility (1 source) Cortisone; Translations: [CORTISONE] [facility] Problems Problem Classification Problem Date Documented Da te Episodic/Chronic Unclassified (1 source) Unknown / UNK(Unknown) Onset: 04-16-2016 Encounters Encounter Date Encounter Type Care Provider Facility Start: 04-16-2016 End: 04-16-2016 Patient encounter procedure LORA IRVING Mendoza [place] Summary Purpose Family History No Family History [...] BE BASED ON THE PRIMARY CLINICAL RECORDS. [employer] provides no warranty or guarantee of the accuracy or completeness of information in this document.
--- NOTE | 2024-01-15 16:15 | STRESSREP ---
Stress Test Report Exercise myocardial perfusion stress test. 73-year-old male with a history of coronary artery disease Stress protocol: Resting EKG demonstrates normal sinus rhythm with a rate of 70 bpm resting blood pressure is 132/72 mmHg. The patient exercised according to the regular Monty protocol for a total duration of 6 minutes attaining a maximum heart rate of 171 bpm which was 115% of maximum predicted heart rate; the maximum workload was 7 metabolic equivalents. At rest there were no ST or T wave changes noted to suggest ischemia and at peak exercise upsloping ST changes only were noted which did not meet the criteria for ischemia. No clinical angina was noted the test was terminated due to the target heart rate being achieved/fatigue. The peak blood pressure was 180/70 mmHg. Rate-pressure product was 29,100. Myocardial perfusion protocol. 12.5 mCi of technetium 99m sestamibi was injected at rest. The patient exercised according to regular Monty protocol for total duration of 6 minutes and at peak exercise 43.0 mCi of technetium 99m sestamibi was injected stress images were obtained stress and rest images were reconstructed in comparing the short axis vertical long and horizontal long axis. Gated images were also obtained. Perfusion SPECT analysis: Review of the stress images demonstrate normal uptake of tracer noted in all areas of the myocardium. The resting images similarly demonstrate normal uptake of tracer noted in all areas of the myocardium. No areas of reversibility are noted to suggest ischemia no previous infarct was noted. Gated SPECT analysis: The gated ejection fraction is 62%. Conclusion: Normal exercise myocardial perfusion stress test at a moderate workload Preserved ejection fraction.
== END | disposition home or self-care (01) ==
LOC: CVS 06:36
PROVIDERS: PCP Family Medicine; Referring Provider Internal Medicine Cardiovascular Disease; Visit Provider Internal Medicine Cardiovascular Disease
DX: I48.0 Paroxysmal atrial fibrillation (principal); I25.10 Atherosclerotic heart disease of native coronary artery without angina pectoris; Z95.5 Presence of coronary angioplasty implant and graft
CPT/HCPCS: 78452; 93017; 93306; A9500; A4216

== ENCOUNTER → 2024-08-04 | Outpatient (CLI) | payer MEDICARE, SELFPAY ==
[2024-08-04 17:58] LABS: Absolute Neutrophil Count 4.3 X10^3/uL (2.0-7.7); Basophil# 0.03 X10^3/uL; Basophil% 0.4 % (0-1); Eosinophil# 0.36 X10^3/uL; Eosinophils% 5.2 % (0-5); Hemoglobin 14.9 g/dL (13.0-16.5); Lymphocyte % 21.9 % (19-41); Mean Corp Hgb Conc 33.9 g/dL (32-36); Mean Corpuscular Hgb 29.3 pg (27.0-32.0); Mean Corpuscular Volume 86.6 fL (80-94); Mean Platelet Vol. 8.8 fl (6.2-12.0); Monocyte# 0.62 X10^3/uL; NRBC Flagged by Analyzer 0 % (0-5); Neutrophil # 4.32 X10^3/uL (2.7-7.7); Neutrophil % 63.1 % (47-70); Platelet Count 264 K/mm3 (150-450); RBC Distribution Width CV 13.7 % (11.6-14.6); RBC Distribution Width SD 43.4 fl (35.1-43.9); Red Blood Count 5.08 M/mm3 (4.6-6.2); White Blood Count 6.9 K/mm3 (4.4-11.0)
[2024-08-04 18:33] LABS: Anion Gap 5 (5-15); BUN 18 mg/dL (7-18); BUN/Creat Ratio 18.1 RATIO (10-20); Calcium,Total 9.7 mg/dL (8.5-10.1); Chloride 108 mmol/L (98-107); Creatinine, Serum 0.99 mg/dL (0.70-1.30); EST Glomerular Filtration Rate 79 mL/min (>60); Est Glom Filt Rate - Afr Amer 95 mL/min (>60); Glucose 77 mg/dL (74-106); PSA,Total - Annual Screen 5.14 ng/mL (0.00-4.00); Potassium 4.4 mmol/L (3.5-5.1); Sodium Level 137 mmol/L (136-145)
== END | disposition home or self-care (01) ==
LOC: BFHLAB 14:03
PROVIDERS: PCP Family Medicine; Referring Provider Family Medicine; Visit Provider Family Medicine
DX: I25.10 Atherosclerotic heart disease of native coronary artery without angina pectoris (principal); Z12.5 Encounter for screening for malignant neoplasm of prostate; Z51.81 Encounter for therapeutic drug level monitoring
CPT/HCPCS: 36415; 80048; 84153; 85025; G0103

== ENCOUNTER → 2024-12-07 | Outpatient (CLI) | payer MEDICARE, SELFPAY ==
[2024-12-07 10:20] LABS: ALB/GLOB Ratio 1.1 RATIO (0.9-2.4); AST(SGOT) 35 U/L (15-37); Alanine Aminotransfer ALT/SGPT 46 U/L (16-61); Albumin, Serum 3.8 g/dL (3.2-5.0); Alkaline Phosphatase 74 U/L (45-117); Anion Gap 5 (5-15); BUN 15 mg/dL (7-18); BUN/Creat Ratio 16.6 RATIO (10-20); Chloride 108 mmol/L (98-107); Cholesterol 179 mg/dL (200); EST Glomerular Filtration Rate 88 mL/min (>60); Est Glom Filt Rate - Afr Amer 106 mL/min (>60); Globulin 3.6 g/dL (2.2-4.2); Glucose 89 mg/dL (74-106); High Density Lipoprotein 46 mg/dL; Potassium 4.3 mmol/L (3.5-5.1); Protein, Total 7.4 g/dL (6.4-8.2); Sodium Level 140 mmol/L (136-145); Triglycerides 156 mg/dL; Very Low Density Lipoprotein 31 mg/dL (5-40)
== END | disposition home or self-care (01) ==
LOC: LAB 09:11
PROVIDERS: PCP Family Medicine; Referring Provider Internal Medicine Cardiovascular Disease; Visit Provider Internal Medicine Cardiovascular Disease
DX: E78.5 Hyperlipidemia, unspecified (principal); I25.10 Atherosclerotic heart disease of native coronary artery without angina pectoris
CPT/HCPCS: 36415; 80053; 80061

== ENCOUNTER 2024-12-20 12:02 | Emergency (ER) | payer MEDICARE, SELFPAY ==
[2024-12-20 12:04] VITALS: BP 139/79; PULSE 96; RESP 15; TEMP 36.6; O2SAT 99; BMI 29.0
--- NOTE | 2024-12-20 13:06 | RAD_ITS ---
PROCEDURE: CHEST PA AND LATERAL REASON FOR EXAM: Shortness of breath, cough TECHNIQUE: Frontal and lateral views of the chest. COMPARISON: 06/25/2020 FINDINGS: The heart size is normal. There are atherosclerotic calcifications of the thoracic aorta. Left basilar opacity The bones are unremarkable. RAD/Chest PA and Lateral IMPRESSION: Left basilar opacity which may represent atelectasis versus airspace disease. Reading Location: [facility]
[2024-12-20 13:07] VITALS: BP 114/72; PULSE 76; RESP 18; TEMP 36.9; O2SAT 93
[2024-12-20 13:23] LABS: Absolute Lymphocyte Count 0.55 X10^3/uL (0.83-4.51); Absolute Neutrophil Count 3.1 X10^3/uL (2.0-7.7); Basophil# 0.01 X10^3/uL; Basophil% 0.2 % (0-1); Hematocrit 45.1 % (40-54); Hemoglobin 15.9 g/dL (13.0-16.5); Lymphocyte # 0.55 X10^3/ul (0.83-4.51); Lymphocyte % 13.5 % (19-41); Mean Corp Hgb Conc 35.3 g/dL (32-36); Mean Corpuscular Hgb 30.6 pg (27.0-32.0); Mean Corpuscular Volume 86.7 fL (80-94); Mean Platelet Vol. 8.4 fl (6.2-12.0); Monocyte# 0.39 X10^3/uL; Monocyte% 9.6 % (0-10); NRBC Flagged by Analyzer 0 % (0-5); Neutrophil # 3.09 X10^3/uL (2.7-7.7); Neutrophil % 76.2 % (47-70); POSITIVE DIFFERENTIAL YES; Platelet Count 221 K/mm3 (150-450); RBC Distribution Width CV 12.9 % (11.6-14.6); RBC Distribution Width SD 40.7 fl (35.1-43.9); White Blood Count 4.1 K/mm3 (4.4-11.0)
[2024-12-20] MEDS: Ondansetron 4 MG/2 ML Vial IV (13:29)
[2024-12-20] MEDS: 0.9% Normal Saline (1000mL) 1,000 ML 999 ML IV ×2 (13:30→14:36)
[2024-12-20 13:51] LABS: Anion Gap 11 (5-15); BUN 27 mg/dL (7-18); BUN/Creat Ratio 22.9 RATIO (10-20); Calcium,Total 9.1 mg/dL (8.5-10.1); Chloride 100 mmol/L (98-107); Creatinine, Serum 1.18 mg/dL (0.70-1.30); EST Glomerular Filtration Rate 64 mL/min (>60); Est Glom Filt Rate - Afr Amer 78 mL/min (>60); Estimated Creatinine Clearance 63.44 ml/min; Glucose 102 mg/dL (74-106); Potassium 3.9 mmol/L (3.5-5.1); Sodium Level 134 mmol/L (136-145); Troponin-I HS 9 pg/mL (3.0-78.0)
--- NOTE | 2024-12-20 14:02 | EX.ED.DYSGE1 ---
HPI History of Present Illness Chief Complaint: Cough Narrative Narrative: Patient is a 74 male with past medical history of paroxysmal atrial fibrillation not on anticoagulation, CAD with stents, hyperlipidemia, hypertension who presents to the emergency department chief complaint of cough and not feeling well. Patient states that on Thursday he became ill and called his primary care physician who prescribed him azithromycin and a steroid. Patient states that he been taking this and is not getting any better was concerned therefore he came here further evaluation management. Patient states that he has a metallic taste to his mouth especially when he attempts to drink water. [facility] Medical History Frequent nosebleeds Paroxysmal atrial fibrillation History of CVA (cerebrovascular accident) (2016) Paroxysmal atrial flutter Hypertriglyceridemia Palpitations Atherosclerotic heart disease of [place] coronary artery without angina pectoris Vertebral artery stenosis Vertigo Hyperlipidemia Home Medications ?Medication ?Instructions ?Recorded ?Last Taken ?Type aspirin 81 mg tablet,delayed 81 mg PO QDAY #90 tabs 08/29/21 Unknown Rx release (Adult Low Dose Aspirin) nitroglycerin 0.4 mg sublingual 0.4 mg sublingual Q5M PRN chest 04/06/23 Unknown Rx tablet (Nitrostat) pain #25 tabs losartan 50 mg tablet 50 mg PO DAILY #90 tabs 02/29/24 Unknown Rx pravastatin 40 mg tablet 40 mg PO QHS #90 tabs 02/29/24 Unknown Rx metoprolol succinate 50 mg 50 mg PO DAILY #90 tabs 12/15/24 Unknown Rx tablet,extended release 24 hr doxycycline hyclate 100 mg capsule 100 mg PO BID 5 days #10 caps 12/20/24 Unknown Rx ondansetron 4 mg disintegrating 4 mg PO Q6H PRN nausea and 12/20/24 Unknown Rx tablet vomiting #20 tabs Allergy/AdvReac Type Severity Reaction Status Date / Time No Known Allergies Allergy Verified 12/20/24 13:26 Family History Father No problems noted. Mother No problems noted. Surgical History History of coronary angioplasty (09/18/11) History of radiofrequency ablation procedure for cardiac arrhythmia (04/28/11) History of left heart catheterization (07/02/20) History of coronary artery stent placement (04/26/11) History of knee replacement Hx of hernia repair History of repair of rotator cuff History of nasal septoplasty Hx of appendectomy Social History Smoking Status: Former smoker how long ago did patient quit smokin-30 years ago alcohol intake: current alcohol intake frequency: holidays/special occasions only Alcohol type: beer substance use type: does not use caffeine: No what type of physical activity do you participate in: bicycling frequency: 3-4 times per week duration: 45-60 minutes/day seatbelt use: always do you feel safe at home: Yes additional social history: Daily aspirin use. Does not use ibuprofen daily. ROS ROS ED ROS Narrative Constitutional: Complains of chills denies fevers, headaches, lightness, dizziness Eyes: Denies change in vision double vision blurry vision Cardiovascular: Denies chest pain or palpitation Respiratory: complains of coughing as noted above Abdomen: Denies abdominal pain nausea vomit diarrhea : Denies any urinary symptoms Neurological: Denies any numbness, weakness, tingling Musculoskeletal: Denies back pain Skin: Denies any rashes or lesions EXAM Physical Exam Narrative Exam Narrative: General: Patient lying in bed rest comfortably did not appear to be acute distress Head: Atraumatic, normocephalic Eyes: PERRL bilaterally, EOMI bilateral, no conjunctival injection noted Neck: Soft, supple, trachea midline Cardiovascular: Regular rate and rhythm no murmurs gallops rubs noted Respiratory: Clear to auscultation bilaterally no rales rhonchi or wheezes noted Abdomen: Soft, nondistended, no tenderness to palpation, bowel sounds present x 4 Extremities: +5/5 strength noted in the bilateral upper and lower extremities, radial pulses +2/4 in the bilateral extremities, no pedal edema on exam Neurological: Patient following commands knew that he was at [facility] years 2024 Skin: Warm, dry, intact no rashes or lesions noted Const Vital Signs: 12/20/24 12:04 12/20/24 13:07 12/20/24 14:03 Temperature 97.9 F 98.5 F 98.9 F Temperature Source Oral Oral Oral Pulse Rate 96 76 72 Respiratory Rate 15 18 18 Respiratory Effort Respiratory Depth Respiratory Pattern Blood Pressure 139/79 H 114/72 106/86 H Blood Pressure Mean 99 86 92 Pulse Ox 99 93 96 Oxygen Delivery Method Room Air Room Air Room Air 12/20/24 14:27 Temperature Temperature Source Pulse Rate Respiratory Rate Respiratory Effort Normal Non-Labored Respiratory Depth Normal Respiratory Pattern Normal Blood Pressure Blood Pressure Mean Pulse Ox Oxygen Delivery Method Room Air MDM MDM MDM Narrative Medical decision making narrative: Patient is a 74-year-old male who presented to the emerged part with a chief complaint of cough and not feeling well overall. On the differential diagnose includes but not limited to influenza, pneumonia, ACS. Once workup is obtained reviewed he will be reevaluated. Patient be given IV fluids and Zofran as he states that he is nauseous. Patient's CBC was reviewed and showed a white blood count of 4.1, he was 15.9, plate count was noted be 221. Patient sodium normal 134, potassium normal 3.9, creatinine normal 1.18. Patient's troponin was noted be 9, EKG reviewed and independently turbid of myself showed sinus rhythm with a rate of 74 bpm. Patient's chest x-ray reviewed by myself and by radiology showed a left basilar opacity which may represent atelectasis versus airspace disease we will change the patient from azithromycin to doxycycline. Patient tested positive for influenza A. I did discuss results with the patient he would like to go home at this point time. Patient ambulated well here in the emergency department no evidence hypoxia. He will be given prescription also for Zofran and was advised to continue supportive care and return with worsening symptoms or concerns otherwise he is to follow-up with his primary care physician outpatient setting. He is agreeable this plan all question concerns answered he is discharged home in stable condition. Lab Data Labs: Laboratory Results - last 24 hr 12/20/24 13:15 WBC 4.1 L RBC 5.20 Hgb 15.9 Hct 45.1 MCV 86.7 MCH 30.6 MCHC 35.3 RDW Std Deviation 40.7 RDW Coeff of Jose 12.9 Plt Count 221 MPV 8.4 Immature Gran % (Auto) 0.500 Neut % (Auto) 76.2 H Lymph % (Auto) 13.5 L Harris % (Auto) 9.6 Eos % (Auto) 0.0 Baso % (Auto) 0.2 Absolute Neuts (auto) 3.1 Absolute Lymphs (auto) 0.55 L Nucleated RBC % 0 Sodium 134 L Potassium 3.9 Chloride 100 Carbon Dioxide 23.0 Anion Gap 11 BUN 27 H Creatinine 1.18 Estim Creat Clear Calc 63.44 Est GFR (MDRD) Af Amer 78 Est GFR (MDRD) Non-Af 64 BUN/Creatinine Ratio 22.9 H Glucose 102 Calcium 9.1 Troponin I High Sens 9 Radiography Diagnostic Testing: Clinical Impression(s) from Imaging Studies Chest X-Ray 12/20/24 13:06 IMPRESSION: Left basilar opacity which may represent atelectasis versus airspace disease. [facility] Discharge Plan Triage Chief Complaint: Cough ED Provider: Luke Silveira Dx/Rx/DC Orders Clinical Impression: Influenza A, Cough Prescriptions: New doxycycline hyclate 100 mg capsule 100 mg PO BID 5 Days Qty: 10 0RF ondansetron 4 mg tablet,disintegrating 4 mg PO Q6H PRN (Reason: nausea and vomiting) Qty: 20 0RF No Action aspirin [Adult Low Dose Aspirin] 81 mg tablet,delayed release (DR/EC) 81 mg PO QDAY Qty: 90 3RF nitroglycerin [Nitrostat] 0.4 mg tablet, sublingual 0.4 mg SUBLINGUAL Q5M PRN (Reason: chest pain) Qty: 25 3RF losartan 50 mg tablet 50 mg PO DAILY Qty: 90 3RF pravastatin 40 mg tablet 40 mg PO QHS Qty: 90 4RF metoprolol succinate 50 mg tablet extended release 24 hr 50 mg PO DAILY Qty: 90 3RF Primary Care Provider: Ruben Steinberg Referrals: Ruben Steinberg DO [Primary Care Provider] - Activity Restrictions/Additional Instructions: Stop taking the azithromycin and start taking the doxycycline that was sent to your pharmacy. Use the Zofran as prescribed. You tested positive for influenza A here in the emergency department. Continue supportive care ensure adequate hydration. Return with worsening symptoms or concerns otherwise follow-up your primary care physician Print Language: [place] Disposition Disposition: Home, Self Care
[2024-12-20 14:03] VITALS: BP 106/86; PULSE 72; RESP 18; TEMP 37.2; O2SAT 96
[2024-12-20 14:34] VITALS: O2SAT 95
[2024-12-20 15:12] VITALS: BP 118/69; PULSE 79; RESP 17; TEMP 37.2; O2SAT 95
[2024-12-22 15:25] LABS: BNP,B-Type NATRIURETIC PEPTIDE 3.8 pg/mL (0-100)
== END 2024-12-20 15:13 | disposition home or self-care (01) ==
PROVIDERS: Emergency Provider Emergency Medicine; PCP Family Medicine; Visit Provider Emergency Medicine
DX: J10.1 Influenza due to other identified influenza virus with other respiratory manifestations (principal); Z87.891 Personal history of nicotine dependence; I25.10 Atherosclerotic heart disease of native coronary artery without angina pectoris; Z86.73 Personal history of transient ischemic attack (TIA), and cerebral infarction without residual deficits; Z95.5 Presence of coronary angioplasty implant and graft; R05.9 Cough, unspecified; E78.5 Hyperlipidemia, unspecified; I10 Essential (primary) hypertension; R06.02 Shortness of breath
CPT/HCPCS: 71046; 80048; 83880; 84484; 85025; 87631; 93005; 99284; A4216; J2405

== ENCOUNTER 2024-12-22 19:12 | Emergency (ER) | payer MEDICARE, SELFPAY ==
[2024-12-22 19:14] VITALS: BP 118/65; PULSE 86; RESP 18; TEMP 36.7; O2SAT 97
--- NOTE | 2024-12-22 20:40 | EKG12_ITS ---
Test Reason : CHEST PAIN Blood Pressure : */* mmHG Vent. Rate : 86 BPM Atrial Rate : * BPM P-R Int : * ms QRS Dur : 96 ms QT Int : 386 ms P-R-T Axes : * 0 15 degrees QTcB Int : 461 ms Atrial fibrillation Abnormal ECG Confirmed by CORRINE EVANS ([id number]), acquisitions editor MELODY JURADO ([id number]) on 12/26/2024 7:13:35 AM Referred By: Ravi Gage Confirmed By: CORRINE EVANS
--- NOTE | 2024-12-22 20:42 | EX.ED.DYSGE1 ---
HPI History of Present Illness Chief Complaint: General Illness Narrative Narrative: 74-year-old male past medical history of atrial fibrillation, not on anticoagulation, hypertension, hyperlipidemia, coronary artery disease started feeling symptoms of being ill approximately 7 days ago. He was seen in the emergency department on Thursday, 2 days ago and was diagnosed with influenza A as well as possible pneumonia. Reportedly, his antibiotics were changed from azithromycin to doxycycline. He states that today he had a syncopal episode for a few minutes. He states he was very vertiginous and felt lightheaded and had to go down to his knees. He reportedly passed out for a minute or 2 and laid in bed for an hour with vertigo which has resolved. He states that he feels very nauseated and that he is having black stool as well. He is very nauseated but has not vomited. Additionally, he denies any abdominal pain, no diarrhea. [facility] Medical History Frequent nosebleeds Paroxysmal atrial fibrillation History of CVA (cerebrovascular accident) (2016) Paroxysmal atrial flutter Hypertriglyceridemia Palpitations Atherosclerotic heart disease of [place] coronary artery without angina pectoris Vertebral artery stenosis Vertigo Hyperlipidemia Home Medications ?Medication ?Instructions ?Recorded ?Last Taken ?Type aspirin 81 mg tablet,delayed 81 mg PO QDAY #90 tabs 08/29/21 Unknown Rx release (Adult Low Dose Aspirin) nitroglycerin 0.4 mg sublingual 0.4 mg sublingual Q5M PRN chest 04/06/23 Unknown Rx tablet (Nitrostat) pain #25 tabs losartan 50 mg tablet 50 mg PO DAILY #90 tabs 02/29/24 Unknown Rx pravastatin 40 mg tablet 40 mg PO QHS #90 tabs 02/29/24 Unknown Rx metoprolol succinate 50 mg 50 mg PO DAILY #90 tabs 12/15/24 Unknown Rx tablet,extended release 24 hr doxycycline hyclate 100 mg capsule 100 mg PO BID 5 days #10 caps 12/20/24 Unknown Rx ondansetron 4 mg disintegrating 4 mg PO Q6H PRN nausea and 12/20/24 Unknown Rx tablet vomiting #20 tabs omeprazole 40 mg capsule,delayed 40 mg PO DAILY #14 caps 12/22/24 Unknown Rx release Allergy/AdvReac Type Severity Reaction Status Date / Time No Known Allergies Allergy Verified 12/22/24 19:17 Family History Father No problems noted. Mother No problems noted. Surgical History History of coronary angioplasty (09/18/11) History of radiofrequency ablation procedure for cardiac arrhythmia (04/28/11) History of left heart catheterization (07/02/20) History of coronary artery stent placement (04/26/11) History of knee replacement Hx of hernia repair History of repair of rotator cuff History of nasal septoplasty Hx of appendectomy Social History household members: spouse housing: house Smoking Status: Former smoker how long ago did patient quit smokin-30 years ago alcohol intake: current alcohol intake frequency: holidays/special occasions only Alcohol type: beer substance use type: does not use caffeine: No what type of physical activity do you participate in: bicycling frequency: 3-4 times per week duration: 45-60 minutes/day seatbelt use: always do you feel safe at home: Yes additional social history: Daily aspirin use. Does not use ibuprofen daily. ROS ROS ED ROS Narrative Constitutional: No fever, no chills. HEENT: No sore throat. No neck pain. No loss of vision. No rhinorrhea. Cardiovascular: No chest pain. No palpitations. No pedal edema. Respiratory: Occasional cough, no shortness of breath. Abdominal: No abdominal pain. Positive nausea. No vomiting. No diarrhea. Genitourinary: No dysuria. No hematuria. Musculoskeletal: No myalgias. No arthralgias. Neurologic: No headaches. Positive vertigo/dizziness earlier today. Resolved. Positive syncopal episode. Skin: No rash. No change in color. EXAM Physical Exam Narrative Exam Narrative: Afebrile. Vital signs noted. Cardiovascular examination reveals a regular rate and rhythm. Respiratory examination reveals no tachypnea. He has occasional rhonchi in the bilateral lung lackey left greater than right. Abdomen is soft, nontender, without guarding or rebound. Positive bowel sounds. Neurological examination is nonfocal and nonlateralizing. Const Vital Signs: 12/22/24 19:14 12/22/24 19:35 12/22/24 21:14 Temperature 98.0 F Temperature Source Temporal Pulse Rate 86 78 Respiratory Rate 18 16 Respiratory Effort Normal Non-Labored Respiratory Pattern Normal Blood Pressure 118/65 115/91 H Blood Pressure Mean 82 99 Pulse Ox 97 98 Oxygen Delivery Method Room Air 12/22/24 23:00 Temperature Temperature Source Pulse Rate 88 Respiratory Rate 16 Respiratory Effort Respiratory Pattern Blood Pressure 118/73 Blood Pressure Mean 88 Pulse Ox 97 Oxygen Delivery Method MDM MDM MDM Narrative Medical decision making narrative: Differential diagnosis includes but not limited to gastritis versus GI component of influenza A versus cholecystitis. I reviewed his prior ED visit, and the chest x-ray was viewed as atelectasis versus airspace disease. He had a low white count of about 4000. He had been put on steroids as well as azithromycin, and was changed by the ED physician to doxycycline. Hence, I have higher suspicion for gastritis over cholecystitis or pancreatitis. In review of his laboratory work, he has a neutropenia 4.0 with hemoglobin normal at 16.4, hematocrit 45.0, platelet count normal at 180. Sodium is slightly low at 134 with a normal potassium of 3.8, BUN of 20 and creatinine 0.96. AST is slightly elevated at 52 with an ALT of 37 and alk phos of 71. High-sensitivity troponin is 8. Lipase is low at 54 so I doubt pancreatitis. Patient states he has not been vomiting. Urinalysis is negative for infection so I do not feel antibiotics are indicated, and he has 150 ketones consistent with mild dehydration. Chest x-ray interpreted by myself independently shows no evidence of pneumothorax, no pneumonia. I do not feel he needs to continue the antibiotics as he has already completed the course. Chaperoned rectal examination revealed normal colored stool which was Hemoccult positive. I have higher suspicion for gastritis with hemorrhage that has resolved. He has a normal hemoglobin here. He has not vomited. I do not feel NG tube is indicated. In discussion with the patient and his neighbor, he has taken a complete course of azithromycin and was changed to doxycycline as well which is notorious for causing gastritis. Additionally, he states that he had been placed on a steroid taper by his primary care provider and has finished that. I feel this all can contribute to gastritis as he complained of continued nausea even on home Zofran. As he was Hemoccult positive but had normal colored stool, I suspected more gastritis with hemorrhage. However, I do feel that he is stable for discharge. He will be given a p.o. challenge and started on Pepcid. He was told not to continue the doxycycline. He states he has Zofran at home. I discussed observation with the patient, but he prefers to be discharged. As long as he passes a p.o. challenge, I will write him for omeprazole to take for the next 2 weeks and refer him to gastroenterology. Return instructions to the emergency department were reviewed. Patient was able to pass a p.o. challenge and took his first dose of Pepcid here. He was given a prescription for omeprazole and referred to gastroenterology. Disposition is discharged home in stable condition. History & Record Review Discussion w/independent historian: Patient and Friend Lab Data Attestation: I reviewed the patient's lab results. Labs: Laboratory Results - last 24 hr 12/22/24 12/22/24 20:45 21:18 WBC 4.0 L RBC 5.38 Hgb 16.4 Hct 45.0 MCV 83.6 MCH 30.5 MCHC 36.4 H RDW Std Deviation 38.7 RDW Coeff of Jose 12.8 Plt Count 180 MPV 8.7 Immature Gran % (Auto) 0.500 Neut % (Auto) 70.4 H Lymph % (Auto) 21.6 Wirt % (Auto) 7.0 Eos % (Auto) 0.0 Baso % (Auto) 0.5 Absolute Neuts (auto) 2.8 Absolute Lymphs (auto) 0.86 Nucleated RBC % 0 Differential Comment SCANNED Atypical Lymphocytes RARE Sodium 134 L Potassium 3.8 Chloride 104 Carbon Dioxide 20.0 L Anion Gap 10 BUN 20 H Creatinine 0.96 Est GFR (MDRD) Af Amer 98 Est GFR (MDRD) Non-Af 81 BUN/Creatinine Ratio 20.8 H Glucose 127 H Calcium 8.9 Total Bilirubin 1.00 AST 52 H ALT 37 Alkaline Phosphatase 71 Troponin I High Sens 8 Total Protein 7.6 Albumin 3.5 Globulin 4.1 Albumin/Globulin Ratio 0.9 Lipase 54 L Urine Color Yellow Urine Clarity Clear Urine pH 5.0 Ur Specific Maiden 1.025 Urine Protein 100 H Urine Glucose (UA) Normal Urine Ketones 150 A* Urine Occult Blood 50 H Urine Nitrite Negative Urine Bilirubin Negative Urine Urobilinogen 1 H Ur Leukocyte Esterase 25 H Urine RBC 0-5 SEEN Urine WBC 0-5 SEEN Ur Squamous Epith Cells 0 SEEN Urine Bacteria 2+ Urine Mucus 1+ Radiography Diagnostic Testing: Clinical Impression(s) from Imaging Studies Chest X-Ray 12/22/24 21:05 IMPRESSION: NEGATIVE CHEST Reading Location: [place] [id number] Discharge Plan Triage Chief Complaint: General Illness ED Provider: Ravi Gage Dx/Rx/DC Orders Clinical Impression: Gastritis, Nausea, Occult GI bleeding Instructions: Treating Gastritis, Understanding Gastritis, Tracking Symptoms of Heart Failure, ED Gastritis (Adult) Prescriptions: New omeprazole 40 mg capsule,delayed release(DR/EC) 40 mg PO DAILY Qty: 14 0RF No Action aspirin [Adult Low Dose Aspirin] 81 mg tablet,delayed release (DR/EC) 81 mg PO QDAY Qty: 90 3RF doxycycline hyclate 100 mg capsule 100 mg PO BID 5 Days Qty: 10 0RF ondansetron 4 mg tablet,disintegrating 4 mg PO Q6H PRN (Reason: nausea and vomiting) Qty: 20 0RF nitroglycerin [Nitrostat] 0.4 mg tablet, sublingual 0.4 mg SUBLINGUAL Q5M PRN (Reason: chest pain) Qty: 25 3RF losartan 50 mg tablet 50 mg PO DAILY Qty: 90 3RF pravastatin 40 mg tablet 40 mg PO QHS Qty: 90 4RF metoprolol succinate 50 mg tablet extended release 24 hr 50 mg PO DAILY Qty: 90 3RF Primary Care Provider: Ruben Steinberg Referrals: Ruben Steinberg DO [Primary Care Provider] - 3-5 Days if not improving Efrain Mathew DO [Med Staff - Active Staff] - As soon as possible Activity Restrictions/Additional Instructions: Return to the emergency department with vomiting of bright red blood, continued black stool, new or worsening symptoms. Avoid use of further steroids or doxycycline. Follow-up with gastroenterology as soon as possible. Print Language: Georgian Disposition Disposition: Home, Self Care
[2024-12-22 20:51] LABS: Absolute Lymphocyte Count 0.86 X10^3/uL (0.83-4.51); Absolute Neutrophil Count 2.8 X10^3/uL (2.0-7.7); Basophil# 0.02 X10^3/uL; Basophil% 0.5 % (0-1); Hemoglobin 16.4 g/dL (13.0-16.5); Lymphocyte # 0.86 X10^3/ul (0.83-4.51); Lymphocyte % 21.6 % (19-41); Mean Corp Hgb Conc 36.4 g/dL (32-36); Mean Corpuscular Hgb 30.5 pg (27.0-32.0); Mean Corpuscular Volume 83.6 fL (80-94); Mean Platelet Vol. 8.7 fl (6.2-12.0); Monocyte# 0.28 X10^3/uL; NRBC Flagged by Analyzer 0 % (0-5); Neutrophil % 70.4 % (47-70); POSITIVE MORPHOLOGY YES; Platelet Count 180 K/mm3 (150-450); RBC Distribution Width CV 12.8 % (11.6-14.6); RBC Distribution Width SD 38.7 fl (35.1-43.9); Red Blood Count 5.38 M/mm3 (4.6-6.2)
[2024-12-22] MEDS: 0.9% Normal Saline (1000mL) 1,000 ML 999 ML IV (20:51)
[2024-12-22] MEDS: Ondansetron 4 MG/2 ML Vial IV (20:55)
[2024-12-22 20:57] LABS: Differential Indicated SCAN CRITERIA MET
--- NOTE | 2024-12-22 21:05 | RAD_ITS ---
PROCEDURE: CHEST 1 VIEW (PORTABLE) REASON FOR EXAM: Dizziness. TECHNIQUE: Frontal and lateral views of the chest. COMPARISON: 12/20/2024. FINDINGS: The heart size is normal. The mediastinal contour is unremarkable. The lungs are clear. The bones are unremarkable. RAD/Chest 1 View (Portable) IMPRESSION: NEGATIVE CHEST Reading Location: [place] [id number]
[2024-12-22 21:13] LABS: ALB/GLOB Ratio 0.9 RATIO (0.9-2.4); AST(SGOT) 52 U/L (15-37); Alanine Aminotransfer ALT/SGPT 37 U/L (16-61); Albumin, Serum 3.5 g/dL (3.2-5.0); Alkaline Phosphatase 71 U/L (45-117); Anion Gap 10 (5-15); BUN 20 mg/dL (7-18); BUN/Creat Ratio 20.8 RATIO (10-20); Calcium,Total 8.9 mg/dL (8.5-10.1); Chloride 104 mmol/L (98-107); Creatinine, Serum 0.96 mg/dL (0.70-1.30); EST Glomerular Filtration Rate 81 mL/min (>60); Est Glom Filt Rate - Afr Amer 98 mL/min (>60); Globulin 4.1 g/dL (2.2-4.2); Glucose 127 mg/dL (74-106); Lipase 54 U/L (73-393); Potassium 3.8 mmol/L (3.5-5.1); Protein, Total 7.6 g/dL (6.4-8.2); Sodium Level 134 mmol/L (136-145); Troponin-I HS (w/2H Reflex) 8 pg/mL (3.0-78.0)
[2024-12-22 21:14] VITALS: BP 115/91; PULSE 78; RESP 16; O2SAT 98
[2024-12-22 21:21] LABS: Atypical Lymphocyte RARE %; Differential Comment SCANNED
[2024-12-22 21:21] LABS: Squamous Epithelial Cells - UA 0 SEEN /hpf (0-5)
[2024-12-22 21:25] LABS: Color, Urine Yellow (Yellow); Glucose, Dipstick Normal (Normal); Leukocyte Esterase-Dipstick 25 /ul (Negative); Nitrite-Dipstick Negative (Negative); Occult Blood-Urine 50 /ul (Negative); Protein-Dipstick 100 mg/dl (Negative); Specific Gravity, Urine 1.025 (1.002-1.030); Urine Bilirubin Dipstick Negative (Negative); Urine Clarity Clear (Clear); Urine Urobilinogen 1 mg/dl (Normal)
[2024-12-22 21:26] LABS: Ketone-Dipstick 150 mg/dl (Negative)
[2024-12-22 21:30] LABS: Bacteria 2+ /hpf (None Seen); Mucous, Urine 1+ /hpf (<or=2+)
[2024-12-22 21:31] LABS: Red Blood Cells-Urine 0-5 SEEN /hpf (0-5); White Blood Cells 0-5 SEEN /hpf (0-5)
[2024-12-22] MEDS: Famotidine 20 MG Tablet PO (22:20)
[2024-12-22 22:48] LABS: Reflex Troponin-HS? (from REC) Y
[2024-12-22 23:00] VITALS: BP 118/73; PULSE 88; RESP 16; O2SAT 97
[2024-12-22 23:19] VITALS: BP 127/88; PULSE 97; RESP 16; TEMP 37.1; O2SAT 99
[2024-12-22 23:44] LABS: Troponin-I HS 6 pg/mL (3.0-78.0)
== END 2024-12-22 23:24 | disposition home or self-care (01) ==
PROVIDERS: Emergency Provider Emergency Medicine; PCP Family Medicine; Referring Provider Emergency Medicine; Visit Provider Emergency Medicine
DX: K29.71 Gastritis, unspecified, with bleeding (principal); Z87.891 Personal history of nicotine dependence; I25.10 Atherosclerotic heart disease of native coronary artery without angina pectoris; R11.0 Nausea; Z95.5 Presence of coronary angioplasty implant and graft; Z86.73 Personal history of transient ischemic attack (TIA), and cerebral infarction without residual deficits; E78.5 Hyperlipidemia, unspecified; I10 Essential (primary) hypertension
CPT/HCPCS: 71045; 80053; 81001; 82274; 83690; 84484; 85025; 93005; 96361; 96374; 99285; A4216; J2405

== ENCOUNTER → 2025-02-03 | Outpatient (CLI) | payer MEDICARE, SELFPAY ==
[2025-02-03 18:23] LABS: PSA,Total- Diagnostic 2.47 ng/mL (0.00-4.00)
== END | disposition home or self-care (01) ==
PROVIDERS: PCP Family Medicine; Visit Provider Family Medicine
DX: R97.20 Elevated prostate specific antigen [PSA] (principal)
CPT/HCPCS: 36415; 84153

== ENCOUNTER 2025-10-27 11:24 | Emergency (ER) | payer MEDICARE, SELFPAY ==
[2025-10-27] VITALS (7 sets, daily range): BP systolic 122–144; BP diastolic 64–96; PULSE 89–998; RESP 15–22; TEMP 36.6–37.2; O2SAT 98–100; BMI 28.3
--- OUTSIDE RECORDS SUMMARY | 2025-10-27 13:09 | XMS RPT_ITS | CCD ---
Author Organization [facility] Care Team Providers Care Enrichment Director Name Role Phone LORA IRVING Unavailable Unavailable Dr. Ruben Steinberg Primary Care Provider [phone] Dr. Ruben Steinberg Referring Provider Dr. Kenyon Guy Attending Provider [phone] Ruben Steinberg Primary Care Provider [phone] Dr. Alireza Solomon Attending Provider [phone] Dr. Ruben Steinberg Referring Provider [phone] Dr. Kenyon Guy Attending Provider [phone] Ruben Steinberg Primary Care Provider [phone] Dr. Ruben Steinberg Referring Provider Dr. Kenyon Guy Attending Provider [phone] Kenyon Guy Referring Provider [phone] Kenyon Guy Other Provider José Miguel ASSOCIATE DEAN OF STUDENTS, BRYON Alan Attending Provider César SPENCER, BRYON Leon Attending Provider Dr. Ruben Steinberg DO Primary Care Provider [phone] Dr. Kenyon Guy MD Attending Provider Dr. Kenyon Guy MD Referring Provider [phone] Dr. Ruben Steinberg DO Referring Provider [phone] Luke Silveira DO Attending Provider Dr. Luke Silveira DO Emergency Provider Ravi Gage MD Attending Provider Ravi Gage MD Referring Provider Ravi Gage MD Emergency Provider Mike SPENCER-CEricka Attending Provider Dr. Ruben Steinberg DO Attending Provider [phone] Maryan, Ruben Referring Unavailable Amryan, Ruben Attending Unavailable Maryan, Ruben Primary Care Unavailable Maryan, Ruben Referring Unavailable Ericka Mckeon Attending Unavailable Maryan, Ruben Primary Care Unavailable Maryan, Ruben Referring Unavailable Ericka Mckeon Attending Unavailable Maryan, Ruben Primary Care Unavailable Maryan, Ruben Referring Unavailable Maryan, Ruben Primary Care Unavailable Kalpana Pollard Attending Unavailable Maryan, Ruben Referring Unavailable Maryan, Ruben Primary Care Unavailable Brooks, Pekin Attending Unavailable Maryan, Ruben Primary Care Unavailable Brooks, Pekin Referring Unavailable Brooks, Pekin Attending Unavailable Luke Silveira Attending Unavailable Maryan, Ruben Primary Care Unavailable ReRavi rodriguez Attending Unavailable Maryan, Ruben Primary Care Unavailable Ravi Gage Referring Unavailable Maryan, Ruben Attending Unavailable Maryan, Ruben Primary Care Unavailable Allergies Allergy Classification Reported Allergen(s) Allergy Type Date of Onset Reaction(s) Facility (1 source) Cortisone; Translations: [CORTISONE] Drug Allergy 5 [facility] Repository (7 sources) Exoawac-Zgp-Jgw Reductase Inhibitor; Translations: [Bxrgkha-Nnr-We a Reductase Inhibitor] Propensity to adverse reactions 1 mylagias/tendon rupture [facility] (1 source) Doxycycline Drug Allergy 5 gastritis [facility] (1 source) Doxycycline Drug Allergy 5 [facility] Repository Medications Current Medications Medication Drug Class(es) Dates Sig (Normalized) Sig (Original) aspirin 81 mg delayed release oral tablet (14 sources) Platelet Aggregation Inhibitor, Nonsteroidal Anti-inflammatory Drug Start: 06-27-2020 End: 08-29-2021 Aspirin (Adult Low Dose Aspirin) 81 mg tablet,delayed release (DR/EC) Active 81 mg PO daily August 29, 2021 12:00am famotidine 20 mg oral tablet (1 source) Histamine-2 Receptor Antagonist Start: 12-27-2024 take 1 tablet by mouth at bedtime Famotidine 20 mg tablet Active 20 mg PO AT BEDTIME December 27, 2024 1:00am LORazepam 0.5 mg oral tablet (1 source) Benzodiazepine Start: 12-27-2024 take 1 tablet by mouth at bedtime as needed for anxiety Lorazepam 0.5 mg tablet Active 0.5 mg PO AT BEDTIME as needed for anxiety December 27, 2024 1:00am 24 hr metoprolol succinate 50 mg extended release oral tablet (20 sources) beta-Adrenergic Troy Start: 11-08-2014 End: 12-15-2024 take 1 tablet by mouth once daily Metoprolol Succinate 50 mg tablet extended release 24 hr Active 50 mg PO DAILY December 15, 2024 1:52pm nitroglycerin 0.4 mg sublingual tablet (20 sources) Nitrate Vasodilator Start: 02-23-2018 End: 04-06-2023 Nitroglycerin (Nitrostat) 0.4 mg tablet, sublingual Active 0.4 mg SL Q5M as needed for chest pain April 06, 2023 3:32pm Start: 02-23-2018 End: 04-06-2023 Nitroglycerin (Nitrostat) 0. 4 mg tablet, sublingual Discontinued 0.4 MG SL Q5M June 14, 2020 6:15pm August 28, 2020 3:52pm omeprazole 40 mg delayed release oral capsule (3 sources) Proton Pump Inhibitor Start: 01-24-2025 take 1 capsule by mouth once daily Omeprazole 40 mg capsule,delayed release(DR/EC) Active 40 mg PO daily January 24, 2025 10:08am Start: 12-27-2024 End: 01-24-2025 take 1 capsule by mouth twice daily Omeprazole 40 mg capsule,delayed release(DR/EC) Discontinued 40 mg PO TWICE A DAY December 27, 2024 10:25am January 24, 2025 10:26am Start: 12-22-2024 End: 12-27-2024 take 1 capsule by mouth once daily Omeprazole 40 mg capsule,delayed release(DR/EC) Discontinued 40 mg PO DAILY December 22, 2024 1:00am December 27, 2024 10:46am Completed/Discontinued Medications Medication Drug Class(es) Dates Sig (Normalized) Sig (Original) clopidogrel 75 mg oral tablet (20 sources) P2Y12 Platelet Inhibitor Start: 12-15-2024 End: 12-15-2024 take 1 tablet by mouth every other day Clopidogrel 75 mg tablet Discontinued 75 mg PO every other day December 15, 2024 12:06pm December 15, 2024 12:33pm Start: 12-08-2015 End: 12-15-2024 take 1 tablet by mouth once daily Clopidogrel 75 mg tablet Discontinued 75 mg PO DAILY January 18, 2024 8:05am December 15, 2024 12:06pm diazePAM 2 mg oral tablet (7 sources) Benzodiazepine Start: 04-12-2016 End: 02-26-2018 take 1 tablet by mouth three times daily as needed Diazepam 2 MG tablet Discontinued 2 mg PO 3 TIMES DAILY NEEDED as needed for Vertigo April 12, 2016 12:00am February 26, 2018 1:48pm doxycycline hyclate 100 mg oral capsule (1 source) Tetracycline-class Drug Start: 12-20-2024 End: 12-27-2024 take 1 capsule by mouth twice daily Doxycycline Hyclate 100 mg capsule Discontinued 100 mg PO TWICE A DAY 08 06December 20, 2024 1:00am December 27, 2024 10:07am glucosamine sulfate 1000 mg oral capsule (7 sources) Start: 04-14-2019 End: 08-29-2021 take 2 capsules by mouth twice daily Glucosamine Sulfate 1,000 mg capsule Discontinued 2000 mg PO TWICE A DAY April 14, 2019 12:00am August 29, 2021 3:14pm Start: 04-14-2019 End: 08-29-2021 take 2000 mg by mouth twice daily Glucosamine Sulfate Discontinued 2000 MG PO TWICE A DAY April 14, 2019 12:00am August 29, 2021 3:14pm losartan potassium 50 mg oral tablet (20 sources) Angiotensin 2 Receptor Troy Start: 11-08-2014 End: 02-29-2024 take 1 tablet by mouth once daily Losartan 50 mg tablet Discontinued 50 mg PO DAILY October 23, 2021 3:21pm September 02, 2022 3:19pm meclizine hydrochloride 25 mg oral tablet (14 sources) Antiemetic Start: 04-12-2016 End: 02-26-2018 take 1 tablet by mouth every eight hours as needed Meclizine 25 MG tablet Discontinued 25 mg PO EVERY 8 HOURS NEEDED as needed for Vertigo April 12, 2016 12:00am February 26, 2018 1:48pm Start: 12-08-2015 End: 02-26-2018 take 1 tablet by mouth three times daily as needed for dizziness Meclizine 25 MG tablet Discontinued 25 mg PO THREE TIMES A DAY as needed for Dizziness December 08, 2015 1:00am February 26, 2018 1:48pm ondansetron 4 mg disintegrating oral tablet (15 sources) Serotonin-3 Receptor Antagonist Start: 12-20-2024 End: 12-27-2024 take 1 tablet by mouth every six hours as needed for nausea and vomiting Ondansetron 4 mg tablet,disintegrating Discontinued 4 mg PO EVERY 6 HOURS as needed for nausea and vomiting December 20, 2024 1:00am December 27, 2024 10:08am Start: 04-12-2016 End: 02-26-2018 take 1 tablet by mouth every eight hours as needed for nausea Ondansetron 4 MG tablet Discontinued 4 mg PO EVERY 8 HOURS NEEDED as needed for Nausea April 12, 2016 12:00am February 26, 2018 1:48pm Start: 12-08-2015 End: 02-26-2018 take 1 tablet by mouth every eight hours as needed for nausea Ondansetron 8 MG tablet,disintegrating Discontinued 8 mg PO EVERY 8 HOURS NEEDED as needed for Nausea December 08, 2015 1:00am February 26, 2018 1:47pm pravastatin sodium 40 mg oral tablet (20 sources) HMG-CoA Reductase Inhibitor Start: 02-16-2019 End: 02-29-2024 take 1 tablet by mouth at bedtime Pravastatin 40 mg tablet Discontinued 40 mg PO AT BEDTIME May 19, 2022 8:46am September 02, 2022 3:19pm Start: 11-08-2014 End: 02-26-2018 take 1 tablet by mouth once daily Pravastatin 40 MG tablet Discontinued 40 mg PO DAILY November 08, 2014 1:00am February 26, 2018 1:47pm Problems Active Problems Problem Classification Problem Date Documented Da te Episodic/Chronic Cardiac dysrhythmias (18 sources) Paroxysmal atrial flutter; Translations: [Unspecified atrial flutter] Chronic Comment on above: RFA 04/2011 Cardiac dysrhythmias (7 sources) Palpitations; Translations: [Palpitations] 04-12-2020 Episodic Conditions associated with dizziness or vertigo (7 sources) Severe vertigo, acute onset; Translations: [Dizziness and giddiness] 10-27-2015 Episodic Coronary atherosclerosis and other heart disease (8 sources) Coronary atherosclerosis; Translations: [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] Onset: 08-26-2024 04-12-2020 Chronic Disorders of lipid metabolism (19 sources) Hypertriglyceridem ia; Translations: [Pure hyperglyceridemia] Onset: 12-23-2024 Chronic Gastritis and duodenitis (3 sources) Gastritis; Translations: [Gastritis, unspecified, without bleeding] 01-24-2025 Episodic Comment on above: resolved Influenza (2 sources) Influenza due to Influenza A virus; Translations: [Influenza due to other identified influenza virus with other respiratory manifestations] 12-28-2024 Episodic Nausea and vomiting (3 sources) Nausea; Translations: [Nausea] Onset: 01-05-2025 12-30-2024 Episodic Occlusion or stenosis of precerebral arteries (7 sources) Vertebral artery stenosis; Translations: [Occlusion and stenosis of unspecified vertebral artery] 08-28-2021 Chronic Other aftercare (6 sources) Patient encounter status; Translations: [Other long term care administrator (current) drug therapy] 04-12-2020 Episodic Other aftercare (1 source) Long-term current use of drug therapy; Translations: [Other penitentiary (current) drug therapy] 04-12-2020 Episodic Other connective tissue disease (1 source) Hand pain; Translations: [Pain in unspecified hand] 07-23-2024 Episodic Other gastrointestinal disorders (2 sources) Occult blood in stools; Translations: [Other fecal abnormalities] 12-30-2024 Episodic Comment on above: positive stool OB x1 ; maroon stool episode x1 only Other lower respiratory disease (1 source) Cough; Translations: [Cough] 12-28-2024 Episodic Other screening for suspected conditions (not mental disorders or infectious disease) (1 source) Elevated prostate specific antigen [PSA]; Translations: [Elevated prostate specific antigen [PSA]] Onset: 02-08-2025 Episodic Unclassified (1 source) Unknown / UNK(Unknown) Onset: 04-16-2016 Unclassified (1 source) Cough, unspecified; Translations: [Cough, unspecified] Onset: 01-04-2025 Past or Other Problems Problem Classification Problem Date Documented Da te Episodic/Chronic Coronary atherosclerosis and other heart disease (10 sources) Past history of procedure; Translations: [Coronary angioplasty status] Onset: 04-26-2011 Episodic Comment on above: POBA-D1 and D2 09/18 Results Test Name Value Interpretation Reference Range Facility Diagnostic total prostate sp ecific antigen (PSA) measurementOrdered By: Ruben Steinberg on 02-03-2025 Prostate Specific Antigen Total 2.47 ng/mL 0.00-4.00 [facility] Comment on above: This test was perfor med using the [employer] tPSA method. Measured values of a patient sample can vary depending on the testing procedure used. PSA values determined on patient samples by different testing procedures cannot be used interchangeably. If there is a change in PSA assays while monitoring therapy, sequential testing should be performed to confirm baseline values. PSA,Total- [employer] PSA, DIAGNOSTIC 2.47 ng/mL Normal 0.00-4.00 [facility] Comment on above: Result Comment: This test was performed using the [employer] tPSA method. Measured values of a patient??sample can vary depending on the testing procedure used. PSA values determined on patient samples by different testing procedures cannot be used interchangeably. If there is a change in PSA assays while monitoring therapy, sequential testing should be performed to confirm baseline values. Performed By: #### L [id number] #### [facility] [address] [place], [address] Gastroenterology Visit Repor ton 01-24-2025 Gastroenterology Visit Report [facility] [address] [place] [address] OFFICE VISIT Date of Service: 01/24/25 MR#: [id number] Acct: [id number] Name: MITCH RUBY Rep #: [id number] : 1950 Provider: BRYON gillespie Age/Sex: 74/M Location: [facility] [place] Status: Signed Intake Vital Signs 12/22/24 19:14 Height 5 ft 10 in Intake Visit Reasons: 1 M FU Chief Complaint: Follow up Allergies doxycycline Adverse Reaction (Severe, Verified 01/24/25 10:01) gastritis Medications ???Medication ???Instructions ???Recorded ???Confirmed ???Type aspirin 81 mg tablet,delayed 81 mg PO QDAY #90 tabs 08/29/21 Rx release (Adult Low Dose Aspirin) nitroglycerin 0.4 mg sublingual 0.4 mg sublingual Q5M PRN chest 01/24/25 Rx tablet (Nitrostat) pain #25 tabs losartan 50 mg tablet 50 mg PO DAILY #90 tabs 02/29/24 0 01/24/25 Rx pravastatin 40 mg tablet 40 mg PO QHS #90 tabs 02/29/24 Rx metoprolol succinate 50 mg 50 mg PO DAILY #90 tabs 12/15/24 0 01/24/25 Rx tablet,extended release 24 hr famotidine 20 mg tablet 20 mg PO QHS #30 tabs 12/27/24 Rx lorazepam 0.5 mg tablet 0.5 mg PO QHS PRN anxiety #10 tabs 12/27/24 01/24/25 Rx omeprazole 40 mg capsule,delayed 40 mg PO BID #60 caps 12/27/24 Rx release Have you fallen in the past year?: No PFSH Medical History Frequent nosebleeds Paroxysmal atrial fibrillation History of CVA (cerebrovascular accident) (2015) Paroxysmal atrial flutter Hypertriglyceridemia Palpitations 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 Mother No problems noted. Social History household members: spouse housing: house Smoking Status: Former smoker how long ago did patient quit smokin-30 years ago alcohol intake: current alcohol intake frequency: holidays/special occasions only Alcohol type: beer substance use type: does not use caffeine: No what type of physical activity do you participate in: bicycling frequency: 3-4 times per week duration: 45-60 minutes/day seatbelt use: always do you feel safe at home: Yes additional social history: Daily aspirin use. Does not use ibuprofen daily. HPI HPI Chief Complaint: Follow up Details: MITCH RUBY, is a 74 M who presents to the office today for FU. OV 12/27 gastritis (viral+drug- induced)ER visit 12/22/24 OB+, increased omeprazole to twice daily, take before breakfast and dinner, added famotidine at HS, lorazepam for anxiety to aid sleep, continue bland diet, advance as tolerated. He reports that his abdominal pain improved within the first week of treatment. He has one week left of his omeprazole prescription for BID. He denies hematochezia and melena. ROS Const Constitutional: No chills, fatigue, fever(s) or weight change Eyes Eyes: No blurry vision or change in vision ENT ENT: No abnormal hearing or difficulty swallowing Resp Respiratory: No cough Cardio Cardiology: No chest pain at rest, chest pain with exertion or leg pain with exertion Gastro GI: No abdominal pain, belching, bloating, change in bowel habits, change in stool character, coffee ground emesis, constipation, cramping, diarrhea, heartburn, difficulty swallowing, feeling full early, excessive flatus, incontinent of stools, Vomiting blood/hematemesis, Blood in stool, loose stools, Black,tarry stools, nausea/dyspepsia, pain with swallowing, vomiting or other Genitourinary Male: No difficulty urinating Musc Musculoskeletal: Positive for joint pain, joint swelling, Arthritis and sciatica; No abnormal gait or leg pain with exertion Skin Skin: No yellowing of the eye or itchy eyes Neuro Neurology: No abnormal gait or abnormal hearing Psych Psychiatric: No anxiety and No depression Endo Endocrine: No cold intolerance, fatigue, heat intolerance or weight change Aller/Imm Allergy/Immunologic: No food intolerance or itchy eyes Joselito/Lymp Hematologic/Lymphati c: No easy bleeding or easy bruising Exam Const General: cooperative, healthy appearing and comfortab (more content not included)... Normal [facility] Gastroenterology Visit Repor ton 12-27-2024 Gastroenterology Visit Report [facility] [address] [place] [address] OFFICE VISIT Date of Service: 12/27/24 MR#: [id number] Acct: [id number] Name: MITCH RUBY Rep #: [id number] : 1950 Provider: BRYON gillespie Age/Sex: 74/M Location: [facility] [place] Status: Signed Intake Vital Signs 12/22/24 19:14 Height 5 ft 10 in Intake Visit Reasons: Gastritis Chief Complaint: Follow up Allergies doxycycline Adverse Reaction (Severe, Verified 12/27/24 09:40) gastritis Medications ???Medication ???Instructions ???Recorded ???Confirmed ???Type aspirin 81 mg tablet,delayed 81 mg PO QDAY #90 tabs 08/29/21 Rx release (Adult Low Dose Aspirin) nitroglycerin 0.4 mg sublingual 0.4 mg sublingual Q5M PRN chest 12/27/24 Rx tablet (Nitrostat) pain #25 tabs losartan 50 mg tablet 50 mg PO DAILY #90 tabs 02/29/24 0 12/27/24 Rx pravastatin 40 mg tablet 40 mg PO QHS #90 tabs 02/29/24 Rx metoprolol succinate 50 mg 50 mg PO DAILY #90 tabs 12/15/24 0 12/27/24 Rx tablet,extended release 24 hr famotidine 20 mg tablet 20 mg PO QHS #30 tabs 12/27/24 Rx lorazepam 0.5 mg tablet 0.5 mg PO QHS PRN anxiety #10 tabs 12/27/24 12/27/24 Rx omeprazole 40 mg capsule,delayed 40 mg PO BID #60 caps 12/27/24 Rx release Have you fallen in the past year?: No PFSH Medical History Frequent nosebleeds Paroxysmal atrial fibrillation History of CVA (cerebrovascular accident) (2016) Paroxysmal atrial flutter Hypertriglyceridemia Palpitations 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 Mother No problems noted. Social History household members: spouse housing: house Smoking Status: Former smoker how long ago did patient quit smokin-30 years ago alcohol intake: current alcohol intake frequency: holidays/special occasions only Alcohol type: beer substance use type: does not use caffeine: No what type of physical activity do you participate in: bicycling frequency: 3-4 times per week duration: 45-60 minutes/day seatbelt use: always do you feel safe at home: Yes additional social history: Daily aspirin use. Does not use ibuprofen daily. HPI HPI Chief Complaint: Follow up Details: MITCH RUBY, is a 74 M who presents to the office today for establishment with [facility] for current complaints of gastritis, drug-induced. He states he had a respiratory infection this past October, saw his PCP and was given prednisone and an antibiotic which cleared up his symptoms. He had joellen respiratory symptoms on 12.16.24 and called his PCP who gave the same medicines as in October for treatment. He reports 2 separate ER visits; on 12.20.24 for worsening cough, vertigo and syncope he was diagnosed with influenza A and pneumonia and given doxycycline and ondansetron; on 12.22.24 for severe abdominal pain, continued cough and gastritis was suspected with positive stool OB so they stopped his doxycycline, gave omeprazole and referred him to us. He currently reports nausea is controlled partly by omeprazole, it takes a few hours to work and then only lasts a few hours. He states nausea is severe, he feels vertiginous and has a very poor appetite even with very bland foods. He describes abdominal pain as midepigastric and stabbing burning. He denies change in stool color, has only has one episode of maroon stool prior to first ER visit. He denies difficulty chewing and swallowing, heartburn, reflux, emesis, abdominal bloating, constipation, diarrhea, hematochezia, and melena. He reports most difficult time with nausea is at bedtime; he has tried multiple positions and furniture types and has found that lying flat worsens the nausea and the longer he's awake the worse the nausea gets. ROS Const Constitutional: Positive for fatigue, weakness, weight change and abnormal sleep pattern; No chills, fever(s) or frequent falls Eyes Eyes: No blurry vision or change in vision ENT ENT: No abnormal hearing or difficulty swallowing Resp Respiratory: Positive for cough Cardio C (more content not included)... Normal [facility] 12 Lead EKGon 12-22-2024 12 Lead EKG [facility] [address] [place] [address] 12 Lead EKG 12/22/242040 MR#: [id number] Acct: [id number] Name: MITCH RUBY Rep #: [id number] : 1950 74 From: Corrine Evans MD Attending Dr: Status: DEP ER Ordering Dr: Ravi Gage MD Date: 12/22/24 Location: ED Sex: M C Admitted: Test Reason : CHEST PAIN Blood Pressure : */* mmHG Vent. Rate : 86 BPM Atrial Rate : * BPM P-R Int : * ms QRS Dur : 96 ms QT Int : 386 ms P-R-T Axes : * 0 15 degrees QTcB Int : 461 ms Atrial fibrillation Abnormal ECG Confirmed by CORRINE EVANS ([id number]), field map editor MELODY JURADO ([id number]) on 12/26/2024 7:13:35 AM Referred By: Ravi Gage Confirmed By: CORRINE EVANS 12/26/24 0713 Date Corrine Evans MD CC: Dr. Ravi Gage MD; Dr. Ruben Steinberg, DO Signed Normal [facility] Absolute neutrophil countOrd ered By: Ravi Gage on 12-22-2024 Neutrophils (Bld) [#/Vol] 2.8 10*3/uL 2.0-7.7 [facility] Albumin to globulin ratioOrd ered By: Ravi Gage on 12-22-2024 Albumin/Globulin [Mass ratio] 0.9 {ratio} 0.9-2.4 [facility] Atypical lymphocyte percenta geOrdered By: Ravi Gage on 12-22-2024 Atypical Lymphocytes RARE % [facility] BNP,B-Type NATRIURETIC PEPTI Natalie 12-22-2024 Natriuretic peptide B (Bld) [Mass/Vol] 3.8 pg/mL Normal 0-100 [facility] Comment on above: Performed By: #### L [id number], L100.0100, L500.2500, L503.6620 #### [facility] [address] [place], [place], [id number] Basophil percentageOrdered B y: Ravi Gage on 12-22-2024 Basophils/100 WBC (Bld) 0.5 % 0-1 [facility] Bilirubin Test strip Ql (U)O rdered By: Ravi Gage on 12-22-2024 Bilirubin Ql (U) Negative Negative [facility] Bilirubin, totalOrdered By: Ravi Gage on 12-22-2024 Bilirubin [Mass/Vol] 1.00 mg/dL 0.20-1.00 [facility] Comment on above: For patients on eltr ombopag therapy, use of Dimension [place] TBIL is not recommended. Blood urea nitrogen (BUN)/cr eatinine ratioOrdered By: Ravi Gage on 12-22-2024 Urea nitrogen/Creatinine [Mass ratio] 20.8 mg/mg High 08-21 [facility] CBC W/Diff, Automatedon 12-04 ATYPICAL LYMPH RARE Normal [facility] Comment on above: Performed By: #### L 501.5425, L100.0100, L501.2450, L500.4050 ####[facility] [id number] [place], [address] SMEAR COMMENT SCANNED Normal [facility] [facility] Comment on above: Performed By: #### L 501.5425, L100.0100, L501.2450, L500.4050 ####[facility] [address] [place], [address] Carbon dioxide measurementOr dered By: Ravi Gage on 12-22-2024 CO2 [Moles/Vol] 20.0 mmol/L Low 21.0-32.0 [facility] Chest 1 View (Portable)on Chest 1 View (Portable) [facility] Imaging Services [address] [place] [address] Chest 1 View (Portable) MR#: [id number] Acct: [id number] Name: MITCH RUBY Rep #: [id number] : 1950 M 74 From: Charlie An MD PCP: Dr. Ruben Steinberg DO Status: REG ER Study: Chest 1 View (Portable) Date of Exam: 12/22/24 Exam# [id number] Ordering Dr: Ravi Gage MD PROCEDURE: CHEST 1 VIEW (PORTABLE) REASON FOR EXAM: Dizziness. TECHNIQUE: Frontal and lateral views of the chest. COMPARISON: 12/20/2024. FINDINGS: The heart size is normal. The mediastinal contour is unremarkable. The lungs are clear. The bones are unremarkable. RAD/Chest 1 View (Portable) IMPRESSION: NEGATIVE CHEST Reading Location: [place] [address] CC: Dr. Ravi Gage MD; Dr. Ruben Steinberg DO Overnight Associate: Signed Normal [facility] Chloride measurementOrdered By: Ravi Gage on 12-22-2024 Chloride [Moles/Vol] 104 mmol/L 98-107 [facility] Comprehensive Metabolic Prof ilon 12-22-2024 Albumin [Mass/Vol] 3.5 g/dL Normal 3.2-5.0 [facility] Comment on above: Performed By: #### L 501.5425, L100.0100, L501.2450, L500.4050 ####[facility] [address] [place], [address] Albumin/Globulin [Mass ratio] 0.9 {ratio} Normal 0.9-2.4 [facility] Comment on above: Performed By: #### L 501.5425, L100.0100, L501.2450, L500.4050 ####[facility] [address] [place], [address] ALK P 71 U/L Normal 45-117 [facility] Comment on above: Performed By: #### L 501.5425, L100.0100, L501.2450, L500.4050 ####[facility] [address] [place], [address] ALT [Catalytic activity/Vol] 37 U/L Normal 16-61 [facility] Comment on above: Performed By: #### L 501.5425, L100.0100, L501.2450, L500.4050 ####[facility] [address] [place], [address] AST [Catalytic activity/Vol] 52 U/L High 15-37 [facility] Comment on above: Performed By: #### L 501.5425, L100.0100, L501.2450, L500.4050 ####[facility] [address] [place], [address] Bilirubin [Mass/Vol] 1.00 mg/dL Normal 0.20-1.00 [facility] Comment on above: Result Comment: For patients on eltrombopag therapy, use of Dimension [place] TBIL is not recommended. Performed By: #### L 501.5425, L100.0100, L501.2450, L500.4050 ####[facility] [address] [place], [address] BUN/CRE 20.8 RATIO High 10-20 [facility] Comment on above: Performed By: #### L 501.5425, L100.0100, L501.2450, L500.4050 ####[facility] [address] [place], [address] CA,Total 8.9 mg/dL Normal 8.5-10.1 [facility] Comment on above: Performed By: #### L 501.5425, L100.0100, L501.2450, L500.4050 ####[facility] [address] [place], [address] Chloride [Moles/Vol] 104 mmol/L Normal 98-107 [facility] Comment on above: Performed By: #### L 501.5425, L100.0100, L501.2450, L500.4050 ####[facility] [address] [place], [address] CO2 [Moles/Vol] 20.0 mmol/L Low 21.0-32.0 [facility] Comment on above: Performed By: #### L 501.5425, L100.0100, L501.2450, L500.4050 ####[facility] [address] [place], [address] Creatinine [Mass/Vol] 0.96 mg/dL Normal 0.70-1.30 [facility] Comment on above: Result Comment: The validity of the calculated GFR GFRAA in patients over 70 years has not been determined. Clinical correlation is essential. Performed By: #### L 501.5425, L100.0100, L501.2450, L500.4050 ####[facility] [address] [place], [address] EST GFR - AA 98 mL/min Normal >60 [facility] Comment on above: Result Comment: Afri can Citizen [place] GFR Calc Performed By: #### L 501.5425, L100.0100, L501.2450, L500.4050 ####[facility] [address] [place], [address] GAP 10 Normal 5-15 [facility] Comment on above: Performed By: #### L 501.5425, L100.0100, L501.2450, L500.4050 ####[facility] [address] [place], [address] GFR/1.73 sq M.predicted among non-blacks MDRD (S/P/Bld) [Vol rate/Area] 81 mL/min/{1.73_m2} Normal >60 [facility] Comment on above: Result Comment: Non- GFR Calc Performed By: #### L 501.5425, L100.0100, L501.2450, L500.4050 ####[facility] [address] [place], [address] Globulin (S) [Mass/Vol] 4.1 g/dL Normal 2.2-4.2 [facility] Comment on above: Performed By: #### L 501.5425, L100.0100, L501.2450, L500.4050 ####[facility] [address] [place], [address] Glucose [Mass/Vol] 127 mg/dL High 74-106 [facility] Comment on above: Result Comment: Fast ing Glucose result greater than or equal to 126 mg/dL suggests DIABETES MELLITUS per A.D.A. criteria. Performed By: #### L 501.5425, L100.0100, L501.2450, L500.4050 ####[facility] [address] [place], [address] Potassium [Moles/Vol] 3.8 mmol/L Normal 3.5-5.1 [facility] Comment on above: Performed By: #### L 501.5425, L100.0100, L501.2450, L500.4050 ####[facility] [address] [place], [address] Sodium [Moles/Vol] 134 mmol/L Low 136-145 [facility] Comment on above: Performed By: #### L 501.5425, L100.0100, L501.2450, L500.4050 ####[facility] [address] [place], [address] T PROT 7.6 g/dL Normal 6.4-8.2 [facility] Comment on above: Performed By: #### L 501.5425, L100.0100, L501.2450, L500.4050 ####[facility] [address] [place], [address] Urea nitrogen [Mass/Vol] 20 mg/dL High 7-18 [facility] Comment on above: Performed By: #### L 501.5425, L100.0100, L501.2450, L500.4050 ####[facility] [address] [place], [address] Emergency Department Summary on 12-22-2024 Emergency Department Summary [facility] Medical Records Department [address] [place] [address] Emergency Department Summary 12/22/24 MR#: [id number] Acct: [id number] Name: MITCH RUBY Rep #: [id number] : 1950 74 From: Ravi Gage MD PCP: Dr. Ruben Steinberg, DO Status:REG ER Location: ED ADDENDUM by Dr. Ravi Gage MD on 12/22/24 at 2315 Of note, I reviewed his prior ED visit in the EMR. EKG was also obtained and interpreted by myself independently as rate controlled atrial fibrillation at [address] changes. No STEMI. 12/22/24 2315 Cosigner Signature (if applicable): cc: Dr. Ruben Steinberg, DO * Signed HPI History of Present Illness Chief Complaint: General Illness Narrative Narrative: 74-year-old male past medical history of atrial fibrillation, not on anticoagulation, hypertension, hyperlipidemia, coronary artery disease started feeling symptoms of being ill approximately 7 days ago. He was seen in the emergency department on Thursday, 2 days ago and was diagnosed with influenza A as well as possible pneumonia. Reportedly, his antibiotics were changed from azithromycin to doxycycline. He states that today he had a syncopal episode for a few minutes. He states he was very vertiginous and felt lightheaded and had to go down to his knees. He reportedly passed out for a minute or 2 and laid in bed for an hour with vertigo which has resolved. He states that he feels very nauseated and that he is having black stool as well. He is very nauseated but has not vomited. Additionally, he denies any abdominal pain, no diarrhea. 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 Vertebral artery stenosis Vertigo Hyperlipidemia Home Medications ???Medication ???Instructions ???Recorded ???Last Taken ???Type aspirin 81 mg tablet,delayed 81 mg PO QDAY #90 tabs 08/29/21 Un known Rx release (Adult Low Dose Aspirin) nitroglycerin 0.4 mg sublingual 0.4 mg sublingual Q5M PRN chest Unknown Rx tablet (Nitrostat) pain #25 tabs losartan 50 mg tablet 50 mg PO DAILY #90 tabs 02/29/24 U nknown Rx pravastatin 40 mg tablet 40 mg PO QHS #90 tabs 02/29/24 Unk nown Rx metoprolol succinate 50 mg 50 mg PO DAILY #90 tabs 12/15/24 U nknown Rx tablet,extended release 24 hr doxycycline hyclate 100 mg capsule 100 mg PO BID 5 days #10 caps Unknown Rx ondansetron 4 mg disintegrating 4 mg PO Q6H PRN nausea and 5 Unknown Rx tablet vomiting #20 tabs omeprazole 40 mg capsule,delayed 40 mg PO DAILY #14 caps 12/22/24 U nknown Rx release Allergy/AdvReac Type Severity Reaction Status Date / Time No Known Allergies Allergy Verified 12/22/24 19:17 Family History Father No problems noted. Mother No problems noted. Surgical History History of coronary angioplasty (09/18/11) History of radiofrequency ablation procedure for cardiac arrhythmia (04/28/11) History of left heart catheterization (07/02/20) History of coronary artery stent placement (04/26/11) History of knee replacement Hx of hernia repair History of repair of rotator cuff History of nasal septoplasty Hx of appendectomy Social History household members: spouse housing: house Smoking Status: Former smoker how long ago did patient quit smokin-30 years ago alcohol intake: current alcohol intake frequency: holidays/special occasions only Alcohol type: beer substance use type: does not use caffeine: No what type of physical activity do you participate in: bicycling frequency: 3-4 times per week duration: 45-60 minutes/day seatbelt use: always do you feel safe at home: Yes additional social history: Daily aspirin use. Does not use ibuprofen daily. ROS ROS ED ROS Narrative Constitutional: No fever, no chills. HEENT: No sore throat. No neck pain. No loss of vision. No rhinorrhea. Cardiovascular: No chest pain. No palpitations. No pedal edema. Respiratory: Occasional cough, no shortness of breath. Abdominal: No abdominal pain. Positive nausea. No vomiting. No diarrhea. Genitourinary: No dysuria. No hematuria. Musculoskeletal: No myalgias. No arthralgias. Neurologic: No headaches. Positive vertigo/dizziness earlier today. Resolved. Positive syncopal episode. Skin: No rash. No change in color. EXAM Physical Exam Narrative Exam Narrative: Afebrile. Vital signs noted. Cardiov (more content not included)... Normal [facility] Eosinophil percentageOrdered By: Ravi Gage on 12-22-2024 Eosinophils/100 WBC (Bld) 0.0 % 0-5 [facility] Epithelial cells.squamous LM Ql (Urine sed)Ordered By: Ravi Gage on 12-22-2024 Epithelial cells.squamous LM.HPF (Urine sed) [#/Area] 0 /[HPF] 0-5 [facility] Erythrocyte distribution wid th (RBC) [Ratio]Ordered By: Ravi Gage on 12-22-2024 Erythrocyte distribution width (RBC) [Entitic vol] 38.7 fL 35.1-43.9 [facility] Erythrocyte distribution wid th ratioOrdered By: Ravi Gage on 12-22-2024 Erythrocyte distribution width (RBC) [Ratio] 12.8 % 11.6-14.6 [facility] Estimated glomerular filtrat ion rate (GFR) AmericanOrdered By: Ravi Gage on 12-22-2024 Estimated GFR (MDRD) Amer 98 mL/min >60 [facility] Comment on above: GFR Calc Glomerular filtration rate ( GFR) estimationOrdered By: Ravi Gage on 12-22-2024 Estimated GFR (MDRD) Non-Af Amer 81 mL/min >60 [facility] Comment on above: Non- GFR Calc Glucose Ql (U)Ordered By: Ki Gage on 12-22-2024 Urine Glucose (UA) Normal mg/dl Normal [facility] Glucose measurementOrdered B y: Ravi Gage on 12-22-2024 Glucose [Mass/Vol] 127 mg/dL High 74-106 [facility] Comment on above: Fasting Glucose resu lt greater than or equal to 126 mg/dL suggests DIABETES MELLITUS per A.D.A. criteria. Hematocrit Auto (Bld) [Volum e fraction]Ordered By: Ravi Gage on 12-22-2024 Hematocrit (Bld) [Volume fraction] 45.0 % 40-54 [facility] Hemoglobin measurementOrdere d By: Ravi Gage on 12-22-2024 Hemoglobin (Bld) [Mass/Vol] 16.4 g/dL 13.0-16.5 [facility] Immature granulocytes/100 WB C Auto (Bld)Ordered By: Ravi Gage on 12-22-2024 Immature granulocytes/100 WBC (Bld) 0.500 % 0.0-0.9 [facility] Comment on above: IG% - Immature Granu locytes (promyelocytes, myelocytes and metamyelocytes) > 1% indicates that a LEFT SHIFT is Present. Ketones Test strip Ql (U)Ord ered By: Ravi Gage on 12-22-2024 Ketones Ql (U) 150 mg/dl Abnormal Negative [facility] Comment on above: CRITICAL VALUE *HCRI TICAL VALUE CALLED TO [id number]/20/252125 Mayi Hardy.RESULTS READ BACK BY SAME. L501.4020on 12-22-2024 TROPONIN-I HS 6 pg/mL Normal 3.0-78.0 [facility] Comment on above: Result Comment: Plea se Note: New Test Units and Gender Specific Reference Ranges. For more information see Policy Stat Procedure [place] High Sensitivity Troponin (TNIH) and attachments. Performed By: #### L 501.4020 #### [facility] [address] [place], [place], [address] L501.5425on 12-22-2024 TROPONIN-I HS 8 pg/mL Normal 3.0-78.0 [facility] Comment on above: Order Comment: 1Y Result Comment: Plea se Note: New Test Units and Gender Specific Reference Ranges. For more information see Policy Stat Procedure [place] High Sensitivity Troponin (TNIH) and attachments. Performed By: #### L 501.5425, L100.0100, L501.2450, L500.4050 ####[facility] [address] [place], [place], [address] Laboratory - Chemistry and C hemistry - challengeOrdered By: Ravi Gage on 12-22-2024 AST [Catalytic activity/Vol] 52 U/L High 15-37 [facility] Lipaseon 12-22-2024 Lipase [Catalytic activity/Vol] 54 U/L Low 73-393 [facility] Comment on above: Performed By: #### L 501.5425, L100.0100, L501.2450, L500.4050 ####[facility] [address] [place], [place], [id number] Lipase measurementOrdered By : Ravi Gage on 12-22-2024 Lipase [Catalytic activity/Vol] 54 U/L Low 73-393 [facility] Lower GI hemoglobin IA Ql (S tl)Ordered By: Ravi Gage on 12-22-2024 Stool Occult Blood (SHIRA) Positive Abnormal [facility] Lymphocytes Auto (Unsp spec) [#/Vol]Ordered By: Ravi Gage on 12-22-2024 Lymphocytes (Bld) [#/Vol] 0.86 10*3/uL 0.83-4.51 [facility] Lymphocytes/100 WBC Auto (Un sp spec)Ordered By: Ravi Gage on 12-22-2024 Lymphocytes/100 WBC (Bld) 21.6 % 19-41 [facility] MCV (mean corpuscular volume ) determinationOrdered By: Ravi Gage on 12-22-2024 MCV (RBC) [Entitic vol] 83.6 fL 80-94 [facility] Manual differential comment Brayden (Bld) [Interp]Ordered By: Ravi Gage on 12-22-2024 Differential Comment SCANNED [facility] Mean corpuscular hemoglobin (MCH) determinationOrdered By: Ravi Gage on 12-22-2024 MCH (RBC) [Entitic mass] 30.5 pg 27.0-32.0 [facility] Mean corpuscular hemoglobin concentration (MCHC) determinationOrdered By: Ravi Gage on 12-22-2024 MCHC (RBC) [Mass/Vol] 36.4 g/dL High 32-36 [facility] Mean platelet volume determi nationOrdered By: Ravi Gage on 12-22-2024 Platelet mean volume (Bld) [Entitic vol] 8.7 fL 6.2-12.0 [facility] Microscopic analysis of urin e for red blood cells (RBC)Ordered By: Ravi Gage on 12-22-2024 Urine RBC 0-5 SEEN /hpf 0-5 [facility] Monocyte percentageOrdered B y: Ravi Gage on 12-22-2024 Monocytes/100 WBC (Bld) 7.0 % 0-10 [facility] Mucus LM Ql (Urine sed)Order ed By: Ravi Gage on 12-22-2024 Mucus Ql (Urine sed) 1+ /hpf [facility] Neutrophil percentageOrdered By: Ravi Gage on 12-22-2024 Neutrophils/100 WBC (Bld) 70.4 % High 47-70 [facility] Nitrite Test strip Ql (U)Ord ered By: Ravi Gage on 12-22-2024 Nitrite Ql (U) Negative Negative [facility] Nucleated red blood cell per centageOrdered By: Ravi Gage on 12-22-2024 Nucleated RBC/100 WBC (Bld) [Ratio] 0 % 0-5 [facility] Platelet countOrdered By: Ki Gage on 12-22-2024 Platelets (Bld) [#/Vol] 180 10*3/uL 150-450 [facility] Potassium measurementOrdered By: Ravi Gage on 12-22-2024 Potassium [Moles/Vol] 3.8 mmol/L 3.5-5.1 [facility] Protein Test strip Ql (U)Ord ered By: Ravi Gage on 12-22-2024 Protein Ql (U) 100 mg/dl High Negative [facility] RBC Auto (Bld) [#/Vol]Ordere d By: Ravi Gage on 12-22-2024 RBC (Bld) [#/Vol] 5.38 10*6/uL 4.6-6.2 [facility] Serum anion gap measurementO rdered By: Ravi Gage on 12-22-2024 Anion gap [Moles/Vol] 10 mmol/L 5-15 [facility] Serum globulin measurementOr dered By: Ravi Gage on 12-22-2024 Globulin (S) [Mass/Vol] 4.1 g/dL 2.2-4.2 [facility] Serum or plasma alanine rosenbaum otransferase (ALT) measurementOrdered By: Ravi Gage on 12-22-2024 ALT [Catalytic activity/Vol] 37 U/L 16-61 [facility] Serum or plasma albumin prachi urement (mass/volume)Ordered By: Ravi Gage on 12-22-2024 Albumin [Mass/Vol] 3.5 g/dL 3.2-5.0 [facility] Serum or plasma alkaline [place] sphatase measurementOrdered By: Ravi aGge on 12-22-2024 ALP [Catalytic activity/Vol] 71 U/L 45-117 [facility] Serum or plasma calcium prachi urement (mass/volume)Ordered By: Ravi Gage on 12-22-2024 Calcium [Mass/Vol] 8.9 mg/dL 8.5-10.1 [facility] Serum or plasma creatinine m easurement (mass/volume)Ordered By: Ravi Gage on 12-22-2024 Creatinine [Mass/Vol] 0.96 mg/dL 0.70-1.30 [facility] Comment on above: The validity of the calculated GFR & GFRAA in patients over 70 years has not been determined. Clinical correlation is essential. Serum or plasma urea nitroge n measurement (mass/volume)Ordered By: Ravi Gage on 12-22-2024 Urea nitrogen [Mass/Vol] 20 mg/dL High 7-18 [facility] Sodium levelOrdered By: Ravi Gage on 12-22-2024 Sodium [Moles/Vol] 134 mmol/L Low 136-145 [facility] Stool Occult Blood iFOBon STOB Positive Normal [facility] Comment on above: Performed By: #### M 100.7900 #### [facility] [address] [place], [address] Total proteinOrdered By: Eloisa Gage on 12-22-2024 Protein [Mass/Vol] 7.6 g/dL 6.4-8.2 [facility] Troponin IOrdered By: Ravi marte on 12-22-2024 Troponin I High Sensitivity 6 pg/mL 3.0-78.0 [facility] Comment on above: Please Note: New Roxy t Units and Gender Specific Reference Ranges. For more information see Policy Stat Procedure [place] High Sensitivity Troponin (TNIH) and attachments. Urinalysis, Completeon 12-22 RBC 0-5 SEEN Normal 0-5 [facility] Comment on above: Order Comment: CLEAN CATCH Performed By: #### L 400.0001 ####[facility] [address] [place], [address] WBC 0-5 SEEN Normal 0-5 [facility] Comment on above: Order Comment: CLEAN CATCH Performed By: #### L 400.0001 ####[facility] [address] [place], [address] BACTERIA 2+ /hpf Normal None Seen [facility] Comment on above: Order Comment: CLEAN CATCH Performed By: #### L 400.0001 ####[facility] [address] [place], [address] Mucus Ql (Urine sed) 1+ /hpf Normal [facility] Comment on above: Order Comment: CLEAN CATCH Performed By: #### L 400.0001 ####[facility] [address] [place], [address] EPI,SQUAMOUS 0 SEEN Normal 0-5 [facility] Comment on above: Order Comment: CLEAN CATCH Performed By: #### L 400.0001 ####[facility] [address] [place], [address] Urine blood detectionOrdered By: Ravi Gage on 12-22-2024 Urine Occult Blood 50 /ul High Negative [facility] Urine clarityOrdered By: Eloisa Gage on 12-22-2024 Clarity (U) Clear Clear [facility] Urine color determinationOrd ered By: Ravi Gage on 12-22-2024 Color (U) Yellow Yellow [facility] Urine leukocyte esterase det ection by dipstickOrdered By: Ravi Gage on 12-22-2024 Leukocyte esterase Test strip Ql (U) 25 /ul High Negative [facility] Urine pHOrdered By: Ravi watts on 12-22-2024 pH (U) 5.0 [pH] 5.0 - 8.0 [facility] Urine sediment bacteria coun t by microscopy (number/high power field)Ordered By: Ravi Gage on 12-22-2024 Bacteria LM.HPF (Urine sed) [#/Area] 2 /[HPF] None Seen [facility] Urine specific gravity measu rementOrdered By: Ravi Gage on 12-22-2024 Specific gravity (U) [Rel density] 1.025 1.002-1.030 [facility] Urobilinogen Ql (U)Ordered B y: Ravi Etiennemichael on 12-22-2024 Urobilinogen (U) [Mass/Vol] 1 mg/dL High Normal [facility] White blood cell (WBC) count Ordered By: Ravi Gage on 12-22-2024 WBC (Bld) [#/Vol] 4.0 10*3/uL Low 4.4-11.0 [facility] White blood cell countOrdere d By: Ravi Gage on 12-22-2024 Urine WBC 0-5 SEEN /hpf 0-5 [facility] Absolute neutrophil countOrd ered By: Luke Silveira on 12-20-2024 Neutrophils (Bld) [#/Vol] 3.1 10*3/uL 2.0-7.7 [facility] BNP (brain natriuretic pepti de measurement)Ordered By: Luke Silveira on 12-20-2024 Natriuretic peptide B (Bld) [Mass/Vol] 3.8 pg/mL 0-100 [facility] Basic Metabolic Profile (BMP )on 12-20-2024 BUN/CRE 22.9 RATIO High 10-20 [facility] Comment on above: Order Comment: 'TROP ' Serial specimen #1, #2 or #3: 1 Performed By: #### L 501.4020, L100.0100, L500.2500, L503.6620 #### [facility] [address] [place], [address] CA,Total 9.1 mg/dL Normal 8.5-10.1 [facility] Comment on above: Order Comment: 'TROP ' Serial specimen #1, #2 or #3: 1 Performed By: #### L 501.4020, L100.0100, L500.2500, L503.6620 #### [facility] [address] [place], [address] Chloride [Moles/Vol] 100 mmol/L Normal 98-107 [facility] Comment on above: Order Comment: 'TROP ' Serial specimen #1, #2 or #3: 1 Performed By: #### L 501.4020, L100.0100, L500.2500, L503.6620 #### [facility] [address] [place], [address] CO2 [Moles/Vol] 23.0 mmol/L Normal 21.0-32.0 [facility] Comment on above: Order Comment: 'TROP ' Serial specimen #1, #2 or #3: 1 Performed By: #### L 501.4020, L100.0100, L500.2500, L503.6620 #### [facility] [address] [place], [address] Creatinine [Mass/Vol] 1.18 mg/dL Normal 0.70-1.30 [facility] Comment on above: Order Comment: 'TROP ' Serial specimen #1, #2 or #3: 1 Result Comment: The validity of the calculated GFR GFRAA in patients over 70 years has not been determined. Clinical correlation is essential. Performed By: #### L 501.4020, L100.0100, L500.2500, L503.6620 #### [facility] [address] [place], [address] ECRCL 63.44 ml/min Normal [facility] Comment on above: Order Comment: 'TROP ' Serial specimen #1, #2 or #3: 1 Performed By: #### L 501.4020, L100.0100, L500.2500, L503.6620 #### [facility] [address] [place], [address] EST GFR - AA 78 mL/min Normal >60 [facility] Comment on above: Order Comment: 'TROP ' Serial specimen #1, #2 or #3: 1 Result Comment: Afri can [place] GFR Calc Performed By: #### L 501.4020, L100.0100, L500.2500, L503.6620 #### [facility] [address] [place], [address] GAP 11 Normal 5-15 [facility] Comment on above: Order Comment: 'TROP ' Serial specimen #1, #2 or #3: 1 Performed By: #### L 501.4020, L100.0100, L500.2500, L503.6620 #### [facility] [address] [place], [address] GFR/1.73 sq M.predicted among non-blacks MDRD (S/P/Bld) [Vol rate/Area] 64 mL/min/{1.73_m2} Normal >60 [facility] Comment on above: Order Comment: 'TROP ' Serial specimen #1, #2 or #3: 1 Result Comment: Non- GFR Calc Performed By: #### L 501.4020, L100.0100, L500.2500, L503.6620 #### [facility] [address] [place], [address] Glucose [Mass/Vol] 102 mg/dL Normal 74-106 [facility] Comment on above: Order Comment: 'TROP ' Serial specimen #1, #2 or #3: 1 Result Comment: Fast ing Glucose result from 100 to 125 mg/dL suggests IMPAIRED HOMEOSTASIS per A.D.A. criteria. Performed By: #### L 501.4020, L100.0100, L500.2500, L503.6620 #### [facility] [address] [place], [address] Potassium [Moles/Vol] 3.9 mmol/L Normal 3.5-5.1 [facility] Comment on above: Order Comment: 'TROP ' Serial specimen #1, #2 or #3: 1 Performed By: #### L 501.4020, L100.0100, L500.2500, L503.6620 #### [facility] [address] [place], [address] Sodium [Moles/Vol] 134 mmol/L Low 136-145 [facility] Comment on above: Order Comment: 'TROP ' Serial specimen #1, #2 or #3: 1 Performed By: #### L 501.4020, L100.0100, L500.2500, L503.6620 #### [facility] [address] [place], [address] Urea nitrogen [Mass/Vol] 27 mg/dL High 05-19 [facility] Comment on above: Order Comment: 'TROP ' Serial specimen #1, #2 or #3: 1 Performed By: #### L 501.4020, L100.0100, L500.2500, L503.6620 #### [facility] [address] [place], [address] Basophil percentageOrdered B y: Luke Silveira on 12-20-2024 Basophils/100 WBC (Bld) 0.2 % 0-1 [facility] Blood urea nitrogen (BUN)/cr eatinine ratioOrdered By: Luke Silveira on 12-20-2024 Urea nitrogen/Creatinine [Mass ratio] 22.9 mg/mg High - [facility] CBC W/Diff, Automatedon 12-03 Absolute Lymph 0.55 X10 3/uL Low 0.83-4.51 [facility] Comment on above: Performed By: #### L 501.4020, L100.0100, L500.2500, L503.6620 #### [facility] [address] [place], [address] Absolute Neut 3.1 X10 3/uL Normal 2.0-7.7 [facility] Comment on above: Performed By: #### L 501.4020, L100.0100, L500.2500, L503.6620 #### [facility] [address] [place], [address] Basophils/100 WBC (Bld) 0.2 % Normal 0-1 [facility] Comment on above: Performed By: #### L 501.4020, L100.0100, L500.2500, L503.6620 #### [facility] [address] [place], [address] Eosinophils/100 WBC (Bld) 0.0 % Normal 0-5 [facility] Comment on above: Performed By: #### L 501.4020, L100.0100, L500.2500, L503.6620 #### [facility] [address] [place], [address] Erythrocyte distribution width (RBC) [Ratio] 12.9 % Normal 11.6-14.6 [facility] Comment on above: Performed By: #### L 501.4020, L100.0100, L500.2500, L503.6620 #### [facility] [address] [place], [address] Hematocrit (Bld) [Volume fraction] 45.1 % Normal 40-54 [facility] Comment on above: Performed By: #### L 501.4020, L100.0100, L500.2500, L503.6620 #### [facility] [address] [place], [address] Hemoglobin (Bld) [Mass/Vol] 15.9 g/dL Normal 13.0-16.5 [facility] Comment on above: Performed By: #### L 501.4020, L100.0100, L500.2500, L503.6620 #### [facility] [address] [place], [address] IG% 0.500 Normal 0.0-0.9 [facility] Comment on above: Result Comment: IG% - Immature Granulocytes (promyelocytes, myelocytes and metamyelocytes) > 1% indicates that a LEFT SHIFT is Present. Performed By: #### L 501.4020, L100.0100, L500.2500, L503.6620 #### [facility] [address] [place], [address] Lymphocytes/100 WBC (Bld) 13.5 % Low 19-41 [facility] Comment on above: Performed By: #### L 501.4020, L100.0100, L500.2500, L503.6620 #### [facility] [address] [place], [address] MCH (RBC) [Entitic mass] 30.6 pg Normal 27.0-32.0 [facility] Comment on above: Performed By: #### L 501.4020, L100.0100, L500.2500, L503.6620 #### [facility] [address] [place], [address] MCHC (RBC) [Mass/Vol] 35.3 g/dL Normal 32-36 [facility] Comment on above: Performed By: #### L 501.4020, L100.0100, L500.2500, L503.6620 #### [facility] [address] [place], [address] MCV (RBC) [Entitic vol] 86.7 fL Normal 80-94 [facility] Comment on above: Performed By: #### L 501.4020, L100.0100, L500.2500, L503.6620 #### [facility] [address] [place], [address] Monocytes/100 WBC (Bld) 9.6 % Normal 0-10 [facility] Comment on above: Performed By: #### L 501.4020, L100.0100, L500.2500, L503.6620 #### [facility] [address] [place], [address] Neutrophils/100 WBC (Bld) 76.2 % High 47-70 [facility] Comment on above: Performed By: #### L 501.4020, L100.0100, L500.2500, L503.6620 #### [facility] [address] [place], [address] Nucleated RBC (Bld) [#/Vol] 0 10*3/uL Normal 0-5 [facility] Comment on above: Performed By: #### L 501.4020, L100.0100, L500.2500, L503.6620 #### [facility] [address] [place], [address] Platelet mean volume (Bld) [Entitic vol] 8.4 fL Normal 6.2-12.0 [facility] Comment on above: Performed By: #### L 501.4020, L100.0100, L500.2500, L503.6620 #### [facility] [address] [place], [address] Platelets (Bld) [#/Vol] 221 10*3/uL Normal 150-450 [facility] Comment on above: Performed By: #### L 501.4020, L100.0100, L500.2500, L503.6620 #### [facility] [address] [place], [address] RBC (Bld) [#/Vol] 5.20 10*6/uL Normal 4.6-6.2 [facility] Comment on above: Performed By: #### L 501.4020, L100.0100, L500.2500, L503.6620 #### [facility] [address] [place], [address] RDW SD 40.7 fl Normal 35.1-43.9 [facility] Comment on above: Performed By: #### L 501.4020, L100.0100, L500.2500, L503.6620 #### [facility] [address] [place], [address] WBC (Bld) [#/Vol] 4.1 10*3/uL Low 4.4-11.0 [facility] Comment on above: Performed By: #### L 501.4020, L100.0100, L500.2500, L503.6620 #### [facility] [address] [place], [address] Carbon dioxide measurementOr dered By: Luke Silveira on 12-20-2024 CO2 [Moles/Vol] 23.0 mmol/L 21.0-32.0 [facility] Chest PA and Lateralon 12-20 Chest PA and Lateral [facility] [address] [place] [address] Chest PA and Lateral MR#: [id number] Acct: [id number] Name: MITCH RUBY Rep #: [id number] : 1950 M 74 From: Brock Handley MD PCP: Dr. Ruben Steinberg DO Status: PRE ER Study: Chest PA and Lateral Date of Exam: 12/20/24 Exam# [id number] Ordering Dr: Luke Silveira DO PROCEDURE: CHEST PA AND LATERAL REASON FOR EXAM: Shortness of breath, cough TECHNIQUE: Frontal and lateral views of the chest. COMPARISON: 06/25/2020 FINDINGS: The heart size is normal. There are atherosclerotic calcifications of the thoracic aorta. Left basilar opacity The bones are unremarkable. RAD/Chest PA and Lateral IMPRESSION: Left basilar opacity which may represent atelectasis versus airspace disease. Reading Location: [facility] CC: Dr. Ruben Steinberg DO; Dr. Luke Silveira DO Overnight Associate: Signed Normal [facility] Chloride measurementOrdered By: Luke Silveira on 12-20-2024 Chloride [Moles/Vol] 100 mmol/L 98-107 [facility] Emergency Department Summary on 12-20-2024 Emergency Department Summary [facility] Medical Records Department [address] [place] [address] Emergency Department Summary 12/20/24 MR#: [id number] Acct: [id number] Name: MITCH RUBYNE Rep #: [id number] : 1950 74 From: Luke Silveira DO PCP: Dr. Ruben Steinberg DO Status:REG ER Location: ED HPI History of Present Illness Chief Complaint: Cough Narrative Narrative: Patient is a 74 male with past medical history of paroxysmal atrial fibrillation not on anticoagulation, CAD with stents, hyperlipidemia, hypertension who presents to the emergency department chief complaint of cough and not feeling well. Patient states that on Thursday he became ill and called his primary care physician who prescribed him azithromycin and a steroid. Patient states that he been taking this and is not getting any better was concerned therefore he came here further evaluation management. Patient states that he has a metallic taste to his mouth especially when he attempts to drink water. 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 Vertebral artery stenosis Vertigo Hyperlipidemia Home Medications ???Medication ???Instructions ???Recorded ???Last Taken ???Type aspirin 81 mg tablet,delayed 81 mg PO QDAY #90 tabs 08/29/21 Un known Rx release (Adult Low Dose Aspirin) nitroglycerin 0.4 mg sublingual 0.4 mg sublingual Q5M PRN chest Unknown Rx tablet (Nitrostat) pain #25 tabs losartan 50 mg tablet 50 mg PO DAILY #90 tabs 02/29/24 U nknown Rx pravastatin 40 mg tablet 40 mg PO QHS #90 tabs 02/29/24 Unk nown Rx metoprolol succinate 50 mg 50 mg PO DAILY #90 tabs 12/15/24 U nknown Rx tablet,extended release 24 hr doxycycline hyclate 100 mg capsule 100 mg PO BID 5 days #10 caps Unknown Rx ondansetron 4 mg disintegrating 4 mg PO Q6H PRN nausea and 5 Unknown Rx tablet vomiting #20 tabs Allergy/AdvReac Type Severity Reaction Status Date / Time No Known Allergies Allergy Verified 12/20/24 13:26 Family History Father No problems noted. Mother No problems noted. Surgical History History of coronary angioplasty (09/18/11) History of radiofrequency ablation procedure for cardiac arrhythmia (04/28/11) History of left heart catheterization (07/02/20) History of coronary artery stent placement (04/26/11) History of knee replacement Hx of hernia repair History of repair of rotator cuff History of nasal septoplasty Hx of appendectomy Social History Smoking Status: Former smoker how long ago did patient quit smokin-30 years ago alcohol intake: current alcohol intake frequency: holidays/special occasions only Alcohol type: beer substance use type: does not use caffeine: No what type of physical activity do you participate in: bicycling frequency: 3-4 times per week duration: 45-60 minutes/day seatbelt use: always do you feel safe at home: Yes additional social history: Daily aspirin use. Does not use ibuprofen daily. ROS ROS ED ROS Narrative Constitutional: Complains of chills denies fevers, headaches, lightness, dizziness Eyes: Denies change in vision double vision blurry vision Cardiovascular: Denies chest pain or palpitation Respiratory: complains of coughing as noted above Abdomen: Denies abdominal pain nausea vomit diarrhea : Denies any urinary symptoms Neurological: Denies any numbness, weakness, tingling Musculoskeletal: Denies back pain Skin: Denies any rashes or lesions EXAM Physical Exam Narrative Exam Narrative: General: Patient lying in bed rest comfortably did not appear to be acute distress Head: Atraumatic, normocephalic Eyes: PERRL bilaterally, EOMI bilateral, no conjunctival injection noted Neck: Soft, supple, trachea midline Cardiovascular: Regular rate and rhythm no murmurs gallops rubs noted Respiratory: Clear to auscultation bilaterally no rales rhonchi or wheezes noted Abdomen: Soft, nondistended, no tenderness to palpation, bowel sounds present x 4 Extremities: +5/5 strength noted in the bilateral upper and lower extremities, radial pulses +2/4 in the bilateral extremities, no pedal edema on exam Neurological: Patient following commands knew that he was at [facility] years 2024 Skin: Warm, dry, intact no rashes or lesions noted Const Vital Signs: 12/20/24 12:04 12/20/24 13:07 12/20/24 14:03 Temperature 97.9 (more content not included)... Normal [facility] Eosinophil percentageOrdered By: Luke Silveira on 12-20-2024 Eosinophils/100 WBC (Bld) 0.0 % 0-5 [facility] Erythrocyte distribution wid th (RBC) [Ratio]Ordered By: Luke Silveira on 12-20-2024 Erythrocyte distribution width (RBC) [Entitic vol] 40.7 fL 35.1-43.9 [facility] Erythrocyte distribution wid th ratioOrdered By: Luke Silveira on 12-20-2024 Erythrocyte distribution width (RBC) [Ratio] 12.9 % 11.6-14.6 [facility] Estimated glomerular filtrat ion rate (GFR) AmericanOrdered By: Luke Silveira on 12-20-2024 Estimated GFR (MDRD) Amer 78 mL/min >60 [facility] Comment on above: GFR Calc Estimation of creatinine luigi aranceOrdered By: Luke Silveira on 12-20-2024 Estimated Creatinine Clearance Calc 63.44 ml/min [facility] Glomerular filtration rate ( GFR) estimationOrdered By: Luke Silveira on 12-20-2024 Estimated GFR (MDRD) Non-Af Amer 64 mL/min >60 [facility] Comment on above: Non- GFR Calc Glucose measurementOrdered B y: Luke Silveira on 12-20-2024 Glucose [Mass/Vol] 102 mg/dL 74-106 [facility] Comment on above: Fasting Glucose resu lt from 100 to 125 mg/dL suggests IMPAIRED HOMEOSTASIS per A.D.A. criteria. Hematocrit Auto (Bld) [Volum e fraction]Ordered By: Luke Silveira on 12-20-2024 Hematocrit (Bld) [Volume fraction] 45.1 % 40-54 [facility] Hemoglobin measurementOrdere d By: Luke Silveira on 12-20-2024 Hemoglobin (Bld) [Mass/Vol] 15.9 g/dL 13.0-16.5 [facility] Immature granulocytes/100 WB C Auto (Bld)Ordered By: Luke Silveira on 12-20-2024 Immature granulocytes/100 WBC (Bld) 0.500 % 0.0-0.9 [facility] Comment on above: IG% - Immature Granu locytes (promyelocytes, myelocytes and metamyelocytes) > 1% indicates that a LEFT SHIFT is Present. Influenza virus A and B and SARS-CoV-2 (COVID-19) and Respiratory syncytial virus RNAOrdered By: Luke Silveira on 12-20-2024 SARS-CoV-2 (COVID-19) RNA JANKI+probe Ql (Unsp spec) Influenzae A Abnormal [facility] L501.4020on 12-20-2024 TROPONIN-I HS 9 pg/mL Normal 3.0-78.0 [facility] Comment on above: Order Comment: 'TROP ' Serial specimen #1, #2 or #3: 1 Result Comment: Iraj harrington Note: New Test Units and Gender Specific Reference Ranges. For more information see Policy Stat Procedure [place] High Sensitivity Troponin (TNIH) and attachments. Performed By: #### L 501.4020, L100.0100, L500.2500, L503.6620 #### [facility] [address] [place], [address] Lymphocytes Auto (Unsp spec) [#/Vol]Ordered By: Luke Silveira on 12-20-2024 Lymphocytes (Bld) [#/Vol] 0.55 10*3/uL Low 0.83-4.51 [facility] Lymphocytes/100 WBC Auto (Un sp spec)Ordered By: Luke Silveira on 12-20-2024 Lymphocytes/100 WBC (Bld) 13.5 % Low 19-41 [facility] M100.678on 12-20-2024 M100.678 Copy of report sent to Infection Control Printer MS#[id number] 12/20/24 1414 GUERRERO. RESULTS CALLED TO OLE 12/20/24 1415 Mami Callahan. REPORT READ BACK BY SAME. FLUABV+SARS-CoV-2+RS V Pnl Resp JANKI+probe Normal Reference Range = Negative GeneXpert Instrument, PCR method SARS-CoV-2 (COVID 19) Negative INFLUENZA A A Positive A INFLUENZA B Negative RSV PCR Negative INFLUENZAE A Normal [facility] Comment on above: Performed By: #### M 168.196 ####[facility] [address] [place], [place], [id number] MCV (mean corpuscular volume ) determinationOrdered By: Luke Silveira on 12-20-2024 MCV (RBC) [Entitic vol] 86.7 fL 80-94 [facility] Mean corpuscular hemoglobin (MCH) determinationOrdered By: Luke Silveira on 12-20-2024 MCH (RBC) [Entitic mass] 30.6 pg 27.0-32.0 [facility] Mean corpuscular hemoglobin concentration (MCHC) determinationOrdered By: Luke Silveira on 12-20-2024 MCHC (RBC) [Mass/Vol] 35.3 g/dL 32-36 [facility] Mean platelet volume determi nationOrdered By: Luke Silveira on 12-20-2024 Platelet mean volume (Bld) [Entitic vol] 8.4 fL 6.2-12.0 [facility] Monocyte percentageOrdered B y: Luke Silveira on 12-20-2024 Monocytes/100 WBC (Bld) 9.6 % 0-10 [facility] Neutrophil percentageOrdered By: Luke Silveira on 12-20-2024 Neutrophils/100 WBC (Bld) 76.2 % High 47-70 [facility] Nucleated red blood cell per centageOrdered By: Luke Silveira on 12-20-2024 Nucleated RBC/100 WBC (Bld) [Ratio] 0 % 0-5 [facility] Platelet countOrdered By: Rich Silveira on 12-20-2024 Platelets (Bld) [#/Vol] 221 10*3/uL 150-450 [facility] Potassium measurementOrdered By: Luke Silveira on 12-20-2024 Potassium [Moles/Vol] 3.9 mmol/L 3.5-5.1 [facility] RBC Auto (Bld) [#/Vol]Ordere d By: Luke Silveira on 12-20-2024 RBC (Bld) [#/Vol] 5.20 10*6/uL 4.6-6.2 [facility] Serum anion gap measurementO rdered By: Luke Silveira on 12-20-2024 Anion gap [Moles/Vol] 11 mmol/L 5-15 [facility] Serum or plasma calcium prachi urement (mass/volume)Ordered By: Luke Silveira on 12-20-2024 Calcium [Mass/Vol] 9.1 mg/dL 8.5-10.1 [facility] Serum or plasma creatinine m easurement (mass/volume)Ordered By: Luke Silveira on 12-20-2024 Creatinine [Mass/Vol] 1.18 mg/dL 0.70-1.30 [facility] Comment on above: The validity of the calculated GFR & GFRAA in patients over 70 years has not been determined. Clinical correlation is essential. Serum or plasma urea nitroge n measurement (mass/volume)Ordered By: Luke Silveira on 12-20-2024 Urea nitrogen [Mass/Vol] 27 mg/dL High 7-18 [facility] Sodium levelOrdered By: Yash Silveira on 12-20-2024 Sodium [Moles/Vol] 134 mmol/L Low 136-145 [facility] Troponin IOrdered By: Luke Silveira on 12-20-2024 Troponin I High Sensitivity 9 pg/mL 3.0-78.0 [facility] Comment on above: Please Note: New Roxy t Units and Gender Specific Reference Ranges. For more information see Policy Stat Procedure [place] High Sensitivity Troponin (TNIH) and attachments. White blood cell (WBC) count Ordered By: Luke Silveira on 12-20-2024 WBC (Bld) [#/Vol] 4.1 10*3/uL Low 4.4-11.0 [facility] Cardiology Visit Reporton Cardiology Visit Report [facility] [address] [place], [place] [address] OFFICE VISIT Date of Service: 12/15/24 MR#: [id number] Acct: [id number] Name: MITCH RUBY Rep #: [id number] : 1950 Provider: Dr. Kenyon Guy MD Age/Sex: 74/M Location: [facility] Status: Signed HPI HPI History of Present Illness Details: MITCH RUBY, is a 74-year-old man that presents here for a follow-up visit. He has a history of previous angioplasty and stenting of the left anterior descending artery, angioplasty to the first ostial and second diagonal branches. He also has a history of atrial flutter for which he underwent ablation. His cardiomyopathy resolved. He presented in June of 2020 with chest discomfort and concerns about his heart. He ultimately underwent a cardiac catheterization on Junewhich demonstrated patency of his stents, preserved ejection fraction. He has been having some nosebleeds but otherwise doing well denying any chest pain or shortness of breath except with activity no palpitations and no pedal edema. 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 Exchange Required: No Is patient in pain?: No Allergies Rgrchhu-CQM-JvX Reductase Inhibitor (Wcbfytn-Hcc-Uxt Reductase Inhibitor) Adverse Reaction (Severe, Verified 12/15/24 11:05) mylagias/tendon rupture Medications ???Medication ???Instructions ???Recorded ???Confirmed ???Type aspirin 81 mg tablet,delayed 81 mg PO QDAY #90 tabs 08/29/21 Rx release (Adult Low Dose Aspirin) nitroglycerin 0.4 mg sublingual 0.4 mg sublingual Q5M PRN chest 12/15/24 Rx tablet (Nitrostat) pain #25 tabs metoprolol succinate 50 mg 50 mg PO DAILY #90 tabs 10/20/23 0 12/15/24 Rx tablet,extended release 24 hr losartan 50 mg tablet 50 mg PO DAILY #90 tabs 02/29/24 0 12/15/24 Rx pravastatin 40 mg tablet 40 mg PO QHS #90 tabs 02/29/24 Rx clopidogrel 75 mg tablet 75 mg PO Q OTHER DAY 12/15/24 His tory Ejection fraction %: 60 Have you fallen in the past year?: No PFSH Medical History Frequent nosebleeds Paroxysmal atrial fibrillation History of CVA (cerebrovascular accident) (2016) Paroxysmal atrial flutter Hypertriglyceridemia Palpitations 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 Mother No problems noted. Social History Smoking Status: Former smoker how long ago did patient quit smokin-30 years ago alcohol intake: current alcohol intake frequency: holidays/special occasions only Alcohol type: beer substance use type: does not use caffeine: No what type of physical activity do you participate in: bicycling frequency: 3-4 times per week duration: 45-60 minutes/day seatbelt use: always do you feel safe at home: Yes additional social history: Daily aspirin use. Does not use ibuprofen daily. ROS Const Const: Positive for fatigue (Tires more quickly than previous.); Negative for weakness Eyes Eyes: Negative for change in vision ENT ENT: Positive for Nosebleed/epistaxis; Negative for dizziness or balance problems Cardio Chest Pain: No Palpitations: No Edema: None Resp Respiratory: Positive for SOB with activity; Negative for SOB at rest or SOB orthopnea SOB lying down GI GI: Negative nausea or heartburn Musc Musc: Negative for balance problems Neuro Neuro: Negative for dizziness, lightheadedness, near syncope, syncope or weakness Endo Endo: Positive for fatigue (Tires more quickly than previous.) Cardiology Exam Const Appearance: cooperative, healthy appearing, no acute distress, well developed and well groomed Nutritional Appearance: average body habitus and well nourished Orientation: alert, awake and oriented x3 Head Head: normal to inspection, normocephalic and atraumatic E (more content not included)... Normal [facility] Albumin to globulin ratioOrd ered By: Kenyon Guy on 12-07-2024 Albumin/Globulin [Mass ratio] 1.1 {ratio} 0.9-2.4 [facility] Bilirubin, totalOrdered By: Kenyon Guy on 12-07-2024 Bilirubin [Mass/Vol] 0.50 mg/dL 0.20-1.00 [facility] Comment on above: For patients on eltr ombopag therapy, use of Dimension [place] TBIL is not recommended. Blood urea nitrogen (BUN)/cr eatinine ratioOrdered By: Kenyon Guy on 12-07-2024 Urea nitrogen/Creatinine [Mass ratio] 16.6 mg/mg 10-20 [facility] Carbon dioxide measurementOr dered By: Kenyon Guy on 12-07-2024 CO2 [Moles/Vol] 26.0 mmol/L 21.0-32.0 [facility] Chloride measurementOrdered By: Kenyon Guy on 12-07-2024 Chloride [Moles/Vol] 108 mmol/L High 98-107 [facility] Comprehensive Metabolic Prof ilon 12-07-2024 Albumin [Mass/Vol] 3.8 g/dL Normal 3.2-5.0 [facility] Comment on above: Order Comment: chemi stry portion for Losartan Performed By: #### L 500.4050, L500.4100 ####[facility] [address] [place], [address] Albumin/Globulin [Mass ratio] 1.1 {ratio} Normal 0.9-2.4 [facility] Comment on above: Order Comment: chemi stry portion for Losartan Performed By: #### L 500.4050, L500.4100 ####[facility] [address] [place], [address] ALK P 74 U/L Normal 45-117 [facility] Comment on above: Order Comment: chemi stry portion for Losartan Performed By: #### L 500.4050, L500.4100 ####[facility] [address] [place], [address] ALT [Catalytic activity/Vol] 46 U/L Normal 16-61 [facility] Comment on above: Order Comment: chemi stry portion for Losartan Performed By: #### L 500.4050, L500.4100 ####[facility] [address] [place], [address] AST [Catalytic activity/Vol] 35 U/L Normal 15-37 [facility] Comment on above: Order Comment: chemi stry portion for Losartan Performed By: #### L 500.4050, L500.4100 ####[facility] [address] [place], [address] Bilirubin [Mass/Vol] 0.50 mg/dL Normal 0.20-1.00 [facility] Comment on above: Order Comment: chemi stry portion for Losartan Result Comment: For patients on eltrombopag therapy, use of Dimension [place] TBIL is not recommended. Performed By: #### L 500.4050, L500.4100 ####[facility] [address] [place], [address] BUN/CRE 16.6 RATIO Normal 10-20 [facility] Comment on above: Order Comment: chemi stry portion for Losartan Performed By: #### L 500.4050, L500.4100 ####[facility] [address] [place], [address] CA,Total 9.0 mg/dL Normal 8.5-10.1 [facility] Comment on above: Order Comment: chemi stry portion for Losartan Performed By: #### L 500.4050, L500.4100 ####[facility] [address] [place], [address] Chloride [Moles/Vol] 108 mmol/L High 98-107 [facility] Comment on above: Order Comment: chemi stry portion for Losartan Performed By: #### L 500.4050, L500.4100 ####[facility] [address] [place], [address] CO2 [Moles/Vol] 26.0 mmol/L Normal 21.0-32.0 [facility] Comment on above: Order Comment: chemi stry portion for Losartan Performed By: #### L 500.4050, L500.4100 ####[facility] [address] [place], [address] Creatinine [Mass/Vol] 0.90 mg/dL Normal 0.70-1.30 [facility] Comment on above: Order Comment: chemi stry portion for Losartan Result Comment: The validity of the calculated GFR GFRAA in patients over 70 years has not been determined. Clinical correlation is essential. Performed By: #### L 500.4050, L500.4100 ####[facility] [address] [place], [address] EST GFR - AA 106 mL/min Normal >60 [facility] Comment on above: Order Comment: chemi stry portion for Losartan Result Comment: Afri can Citizen [place] GFR Calc Performed By: #### L 500.4050, L500.4100 ####[facility] [address] [place], [address] GAP 5 Normal 5-15 [facility] Comment on above: Order Comment: chemi stry portion for Losartan Performed By: #### L 500.4050, L500.4100 ####[facility] [address] [place], [address] GFR/1.73 sq M.predicted among non-blacks MDRD (S/P/Bld) [Vol rate/Area] 88 mL/min/{1.73_m2} Normal >60 [facility] Comment on above: Order Comment: chemi stry portion for Losartan Result Comment: Non- GFR Calc Performed By: #### L 500.4050, L500.4100 ####[facility] [address] [place], [address] Globulin (S) [Mass/Vol] 3.6 g/dL Normal 2.2-4.2 [facility] Comment on above: Order Comment: chemi stry portion for Losartan Performed By: #### L 500.4050, L500.4100 ####[facility] [address] [place], [address] Glucose [Mass/Vol] 89 mg/dL Normal 74-106 [facility] Comment on above: Order Comment: chemi stry portion for Losartan Performed By: #### L 500.4050, L500.4100 ####[facility] [address] [place], [address] Potassium [Moles/Vol] 4.3 mmol/L Normal 3.5-5.1 [facility] Comment on above: Order Comment: chemi stry portion for Losartan Performed By: #### L 500.4050, L500.4100 ####[facility] [address] [place], [address] Sodium [Moles/Vol] 140 mmol/L Normal 136-145 [facility] Comment on above: Order Comment: chemi stry portion for Losartan Performed By: #### L 500.4050, L500.4100 ####[facility] [address] [place], [address] T PROT 7.4 g/dL Normal 6.4-8.2 [facility] Comment on above: Order Comment: chemi stry portion for Losartan Performed By: #### L 500.4050, L500.4100 ####[facility] [address] [place], [address] Urea nitrogen [Mass/Vol] 15 mg/dL Normal 7-18 [facility] Comment on above: Order Comment: chemi stry portion for Losartan Performed By: #### L 500.4050, L500.4100 ####[facility] [address] [place], [place], [id number] Estimated glomerular filtrat ion rate (GFR) AmericanOrdered By: Kenyon Guy on 12-07-2024 Estimated GFR (MDRD) Amer 106 mL/min >60 [facility] Comment on above: GFR Calc Glomerular filtration rate ( GFR) estimationOrdered By: Kenyon Guy on 12-07-2024 Estimated GFR (MDRD) Non-Af Amer 88 mL/min >60 [facility] Comment on above: Non- GFR Calc Glucose measurementOrdered B y: Kenyon Guy on 12-07-2024 Glucose [Mass/Vol] 89 mg/dL 74-106 [facility] High density lipoprotein (HD L) measurementOrdered By: Kenyon Guy on 12-07-2024 Cholesterol in HDL [Mass/Vol] 46 mg/dL >40 [facility] Comment on above: The drugs N-Acetylcy steine and Metamizole may falsely depress this assay. Reference Range HDL <40 mg/dL Low HDL Cholesterol HDL >or= 60 mg/dL High HDL Cholesterol Laboratory - Chemistry and C hemistry - challengeOrdered By: Kenyon Guy on 12-07-2024 AST [Catalytic activity/Vol] 35 U/L 15-37 [facility] Lipid Profileon 12-07-2024 Cholesterol [Mass/Vol] 179 mg/dL Normal 200 [facility] Comment on above: Result Comment: <200 mg/dL Desirable 200-240 mg/dL Borderline >240 mg/dL High Risk Performed By: #### L 500.4050, L500.4100 ####[facility] [address] [place], [place], [id number] Cholesterol in HDL [Mass/Vol] 46 mg/dL Normal [facility] Comment on above: Result Comment: The drugs N-Acetylcysteine and Metamizole may falsely depress this assay. Reference Range HDL <40 mg/dL Low HDL Cholesterol HDL >or= 60 mg/dL High HDL Cholesterol Performed By: #### L 500.4050, L500.4100 ####[facility] [address] [place], [address] Cholesterol in LDL [Mass/Vol] 102 mg/dL Normal 0-130 [facility] Comment on above: Performed By: #### L 500.4050, L500.4100 ####[facility] [address] [place], [address] Cholesterol in VLDL [Mass/Vol] 31 mg/dL Normal 5-40 [facility] Comment on above: Performed By: #### L 500.4050, L500.4100 ####[facility] [address] [place], [address] Triglyceride [Mass/Vol] 156 mg/dL Normal [facility] Comment on above: Result Comment: The drugs N-Acetylcysteine and Metamizole may falsely depress this assay. Serum Triglycerides Reference Interval Normal <150 mg/dL Borderline high 150 - 199 mg/dL High 200 - 499 mg/dL Very High > or = 500 mg/dL Performed By: #### L 500.4050, L500.4100 ####[facility] [address] [place], [address] Low density lipoprotein (LDL ) cholesterol measurementOrdered By: Kenyon Guy on 12-07-2024 Cholesterol in LDL [Mass/Vol] 102 mg/dL 0-130 [facility] Potassium measurementOrdered By: Kenyon Guy on 12-07-2024 Potassium [Moles/Vol] 4.3 mmol/L 3.5-5.1 [facility] Serum anion gap measurementO rdered By: Kenyon Guy on 12-07-2024 Anion gap [Moles/Vol] 5 mmol/L 5-15 [facility] Serum globulin measurementOr dered By: Kenyon Guy on 12-07-2024 Globulin (S) [Mass/Vol] 3.6 g/dL 2.2-4.2 [facility] Serum or plasma alanine rosenbaum otransferase (ALT) measurementOrdered By: Kenyon Guy on 12-07-2024 ALT [Catalytic activity/Vol] 46 U/L 16-61 [facility] Serum or plasma albumin prachi urement (mass/volume)Ordered By: Kenyon Brooks on 12-07-2024 Albumin [Mass/Vol] 3.8 g/dL 3.2-5.0 [facility] Serum or plasma alkaline [place] sphatase measurementOrdered By: Kenyon Brooks on 12-07-2024 ALP [Catalytic activity/Vol] 74 U/L 45-117 [facility] Serum or plasma calcium prachi urement (mass/volume)Ordered By: Kenyon Brooks on 12-07-2024 Calcium [Mass/Vol] 9.0 mg/dL 8.5-10.1 [facility] Serum or plasma cholesterol measurement (mass/volume)Ordered By: Kenyon Brooks on 12-07-2024 Cholesterol [Mass/Vol] 179 mg/dL <200 [facility] Comment on above: <200 mg/dL Desirable 200-240 mg/dL Borderline >240 mg/dL High Risk Serum or plasma creatinine m easurement (mass/volume)Ordered By: Kenyon Guy on 12-07-2024 Creatinine [Mass/Vol] 0.90 mg/dL 0.70-1.30 [facility] Comment on above: The validity of the calculated GFR & GFRAA in patients over 70 years has not been determined. Clinical correlation is essential. Serum or plasma urea nitroge n measurement (mass/volume)Ordered By: Kenyon Guy on 12-07-2024 Urea nitrogen [Mass/Vol] 15 mg/dL 7-18 [facility] Sodium levelOrdered By: Vic Guy on 12-07-2024 Sodium [Moles/Vol] 140 mmol/L 136-145 [facility] Total proteinOrdered By: Luis Guy on 12-07-2024 Protein [Mass/Vol] 7.4 g/dL 6.4-8.2 [facility] Triglycerides measurementOrd ered By: Kenyon Guy on 12-07-2024 Triglyceride [Mass/Vol] 156 mg/dL <199 [facility] Comment on above: The drugs N-Acetylcy steine and Metamizole may falsely depress this assay.Serum Triglycerides Reference Interval Normal <150 mg/dL Borderline high 150 - 199 mg/dL High 200 - 499 mg/dL Very High > or = 500 mg/dL Very low density lipoprotein (VLDL) cholesterol measurementOrdered By: Kenyon Guy on 12-07-2024 VLDL Cholesterol 31 mg/dL 5-40 [facility] Basic Metabolic Profile (BMP )on 08-04-2024 BUN/CRE 18.1 RATIO Normal 10-20 [facility] Comment on above: Performed By: #### L 501.9910, L500.2500, L100.0100 ####[facility] [address] [place], [address] CA,Total 9.7 mg/dL Normal 8.5-10.1 [facility] Comment on above: Performed By: #### L 501.9910, L500.2500, L100.0100 ####[facility] [address] [place], [address] Chloride [Moles/Vol] 108 mmol/L High 98-107 [facility] Comment on above: Performed By: #### L 501.9910, L500.2500, L100.0100 ####[facility] [address] [place], [address] CO2 [Moles/Vol] 24.0 mmol/L Normal 21.0-32.0 [facility] Comment on above: Performed By: #### L 501.9910, L500.2500, L100.0100 ####[facility] [address] [place], [address] Creatinine [Mass/Vol] 0.99 mg/dL Normal 0.70-1.30 [facility] Comment on above: Result Comment: The validity of the calculated GFR GFRAA in patients over 70 years has not been determined. Clinical correlation is essential. Performed By: #### L 501.9910, L500.2500, L100.0100 ####[facility] [address] [place], [address] EST GFR - AA 95 mL/min Normal >60 [facility] Comment on above: Result Comment: Afri can [place] GFR Calc Performed By: #### L 501.9910, L500.2500, L100.0100 ####[facility] [address] [place], [address] GAP 5 Normal 5-15 [facility] Comment on above: Performed By: #### L 501.9910, L500.2500, L100.0100 ####[facility] [address] [place], [address] GFR/1.73 sq M.predicted among non-blacks MDRD (S/P/Bld) [Vol rate/Area] 79 mL/min/{1.73_m2} Normal >60 [facility] Comment on above: Result Comment: Non- GFR Calc Performed By: #### L 501.9910, L500.2500, L100.0100 ####[facility] [address] [place], [address] Glucose [Mass/Vol] 77 mg/dL Normal 74-106 [facility] Comment on above: Performed By: #### L 501.9910, L500.2500, L100.0100 ####[facility] [address] [place], [address] Potassium [Moles/Vol] 4.4 mmol/L Normal 3.5-5.1 [facility] Comment on above: Performed By: #### L 501.9910, L500.2500, L100.0100 ####[facility] [address] [place], [address] Sodium [Moles/Vol] 137 mmol/L Normal 136-145 [facility] Comment on above: Performed By: #### L 501.9910, L500.2500, L100.0100 ####[facility] [address] [place], [address] Urea nitrogen [Mass/Vol] 18 mg/dL Normal 7-18 [facility] Comment on above: Performed By: #### L 501.9910, L500.2500, L100.0100 ####[facility] [address] [place], [address] CBC W/Diff, Automatedon 10-0 3-2024 Absolute Lymph 1.50 X10 3/uL Normal 0.83-4.51 [facility] Comment on above: Performed By: #### L 501.9910, L500.2500, L100.0100 ####[facility] [address] [place], [address] Absolute Neut 4.3 X10 3/uL Normal 2.0-7.7 [facility] Comment on above: Performed By: #### L 501.9910, L500.2500, L100.0100 ####[facility] [address] [place], [address] Basophils/100 WBC (Bld) 0.4 % Normal 0-1 [facility] Comment on above: Performed By: #### L 501.9910, L500.2500, L100.0100 ####[facility] [address] [place], [address] Eosinophils/100 WBC (Bld) 5.2 % High 0-5 [facility] Comment on above: Performed By: #### L 501.9910, L500.2500, L100.0100 ####[facility] [address] [place], [address] Erythrocyte distribution width (RBC) [Ratio] 13.7 % Normal 11.6-14.6 [facility] Comment on above: Performed By: #### L 501.9910, L500.2500, L100.0100 ####[facility] [address] [place], [address] Hematocrit (Bld) [Volume fraction] 44.0 % Normal 40-54 [facility] Comment on above: Performed By: #### L 501.9910, L500.2500, L100.0100 ####[facility] [address] [place], [address] Hemoglobin (Bld) [Mass/Vol] 14.9 g/dL Normal 13.0-16.5 [facility] Comment on above: Performed By: #### L 501.9910, L500.2500, L100.0100 ####[facility] [address] [place], [address] IG% 0.400 Normal 0.0-0.9 [facility] Comment on above: Result Comment: IG% - Immature Granulocytes (promyelocytes, myelocytes and metamyelocytes) > 1% indicates that a LEFT SHIFT is Present. Performed By: #### L 501.9910, L500.2500, L100.0100 ####[facility] [address] [place], [address] Lymphocytes/100 WBC (Bld) 21.9 % Normal 19-41 [facility] Comment on above: Performed By: #### L 501.9910, L500.2500, L100.0100 ####[facility] [address] [place], [address] MCH (RBC) [Entitic mass] 29.3 pg Normal 27.0-32.0 [facility] Comment on above: Performed By: #### L 501.9910, L500.2500, L100.0100 ####[facility] [address] [place], [address] MCHC (RBC) [Mass/Vol] 33.9 g/dL Normal 32-36 [facility] Comment on above: Performed By: #### L 501.9910, L500.2500, L100.0100 ####[facility] [address] [place], [address] MCV (RBC) [Entitic vol] 86.6 fL Normal 80-94 [facility] Comment on above: Performed By: #### L 501.9910, L500.2500, L100.0100 ####[facility] [address] [place], [address] Monocytes/100 WBC (Bld) 9.0 % Normal 0-10 [facility] Comment on above: Performed By: #### L 501.9910, L500.2500, L100.0100 ####[facility] [address] [place], [address] Neutrophils/100 WBC (Bld) 63.1 % Normal 47-70 [facility] Comment on above: Performed By: #### L 501.9910, L500.2500, L100.0100 ####[facility] [address] [place], [address] Nucleated RBC (Bld) [#/Vol] 0 10*3/uL Normal 0-5 [facility] Comment on above: Performed By: #### L 501.9910, L500.2500, L100.0100 ####[facility] [address] [place], [address] Platelet mean volume (Bld) [Entitic vol] 8.8 fL Normal 6.2-12.0 [facility] Comment on above: Performed By: #### L 501.9910, L500.2500, L100.0100 ####[facility] [address] [place], [address] Platelets (Bld) [#/Vol] 264 10*3/uL Normal 150-450 [facility] Comment on above: Performed By: #### L 501.9910, L500.2500, L100.0100 ####[facility] [address] [place], [address] RBC (Bld) [#/Vol] 5.08 10*6/uL Normal 4.6-6.2 [facility] Comment on above: Performed By: #### L 501.9910, L500.2500, L100.0100 ####[facility] [address] [place], [address] RDW SD 43.4 fl Normal 35.1-43.9 [facility] Comment on above: Performed By: #### L 501.9910, L500.2500, L100.0100 ####[facility] [address] [place], [address] WBC (Bld) [#/Vol] 6.9 10*3/uL Normal 4.4-11.0 [facility] Comment on above: Performed By: #### L 501.9910, L500.2500, L100.0100 ####[facility] [address] [place], [address] PSA,Total - Annual Screenon 08-04-2024 PSA,TOT SCREEN 5.14 ng/mL High 0.00-4.00 [facility] Comment on above: Result Comment: This test was performed using the TPSA assay method for the Zig[employer] chemistry system. Values obtained with different assay methods cannot be used interchangably. When changing PSA assays in the course of monitoring a patient, additional sequential testing should be carried out to confirm baseline values. Performed By: #### L 501.9910, L500.2500, L100.0100 ####[facility] [address] [place], [address] /Aleah 07-22-2024 /[email or web address] [facility] [address] [place] [address] OFFICE VISIT Date of Service: 07/22/24 MR#: [id number] Acct: [id number] Name: MITCH RUBY Rep #: [id number] : 1950 Provider: APOORVA Keenan Age/Sex: 74/M Location: [facility] Status: Signed Intake Vital Signs 11/19/23 09:12 06/27/24 15:30 07/22/24 11:13 Height 5 ft 11 in 5 ft 11 in 5 ft 11 in Weight: 211 lb BMI 29.4 BP 110/58 L Blood Pressure Location Lt brachial Position Sitting Respiration 16 Pulse 90 Pulse Source Monitor Temp 98.6 F Temp Source Temporal Pulse Oximetry (%) 94 Oxygen Delivery Method room air Intake Visit Reasons: CIRCULATORY HAND ISSUE Chief Complaint: Follow up Accompanied by: Self Is patient in pain?: No Allergies Yaksknf-PUJ-JcA Reductase Inhibitor (Cithtrr-Cps-Ocq Reductase Inhibitor) Adverse Reaction (Severe, Verified 07/22/24 11:12) mylagias/tendon rupture Medications ???Medication ???Instructions ???Recorded ???Confirmed ???Type aspirin 81 mg tablet,delayed 81 mg PO QDAY #90 tabs 08/29/21 07/22/24 Rx release (Adult Low Dose Aspirin) nitroglycerin 0.4 mg sublingual 0.4 mg sublingual Q5M PRN chest 04/06/23 11/19/23 Rx tablet (Nitrostat) pain #25 tabs metoprolol succinate 50 mg 50 mg PO DAILY #90 tabs 10/20/23 07/22/24 Rx tablet,extended release 24 hr clopidogrel 75 mg tablet 75 mg PO DAILY #90 tabs 01/18/24 07/22/24 Rx losartan 50 mg tablet 50 mg PO DAILY #90 tabs 02/29/24 07/22/24 Rx pravastatin 40 mg tablet 40 mg PO QHS #90 tabs 02/29/24 07/22/24 Rx Have you fallen in the past year?: No PFSH Medical History Paroxysmal atrial fibrillation History of CVA (cerebrovascular accident) (2015) Paroxysmal atrial flutter Hypertriglyceridemia Palpitations 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 Mother No problems noted. Social History (Updated 07/22/24 @ 11:17 by Pallavi Ayala) Smoking Status: Former smoker how long ago did patient quit smokin-30 years ago alcohol intake: current alcohol intake frequency: holidays/special occasions only Alcohol type: beer substance use type: does not use caffeine: No what type of physical activity do you participate in: bicycling frequency: 3-4 times per week duration: 45-60 minutes/day seatbelt use: always do you feel safe at home: Yes additional social history: Daily aspirin use. Does not use ibuprofen daily. HPI HPI HPI: MITCH RUBY, is a 74 M who presents to the office today for swelling and pain in his hand which she is concerned could be due to a vascular problem. He reports stiffness this, swelling, and pain primarily in the fingers of his bilateral hands, worse right than left. He notes the stiffness is worse when he first wakes up and improves with use of his hand. However, the swelling and pain seem to worsen with the use. The swelling is particularly noticeable in the evening and he also notices that his skin appears tighter and shiny across the knuckles of his right hand. He denies any discoloration, pallor, weakness, coolness in his hands. He does note numbness in his bilateral hands which occurs if he sleeps with his arms crossed over his chest, but otherwise no sensory deficits. He denies any pain, swelling, fatigue through the rest of his upper extremities. Denies any history of VTE or prior vascular surgical interventions. He has seen his PCP and vascular surgery at an outside hospital for these concerns. He reports both that it was most likely arthritis contributing to his symptoms. Medical history is significant for CAD status post PCI (2010), paroxysmal A-fib status post RFA (2010). ROS General General: Yes fatigue; No weight change, colon cancer or breast cancer HEENT HEENT: No difficulty swallowing, eye surgery or swollen glands Endo Endocrine: No thyroid disease, diabetes mellitus or thyroid cancer Skin Skin: No rash or changing moles Musc Musculoskeletal: Yes back problems and arthritis; No rheumatoid arthritis or gout Cardio Cardiovascular: Yes heart disease, atrial fib (more content not included)... Normal [facility] Basophil percentageOrdered B y: Ruben Steinberg on 12-24-2023 Basophil percentage < 10.0 IU/mL <15 [facility] Erythrocyte sedimentation ra teOrdered By: Ruben Steinberg on 12-24-2023 ESR (Bld) [Velocity] 16 mm/h 0-20 [facility] No Panel InformationOrdered By: Ruben Steinberg on 12-24-2023 Anti-Nuclear Antibody Screen Negative Negative [facility] Comment on above: Performed at: [place] [id number] Director: Valente Wong PhD, Phone: [phone] C-Reactive Protein Extended Range < 2.90 mg/L 0.0-3.0 [facility] Comment on above: C-Reactive Protein ( CRP) provides useful information for thediagnosis, therapy and monitoring of inflammatory processesand associated diseases. For the evaluation of Relative Riskfor Cardiovascular Disease, a High Sensitivity CRP (HSCRP)should be ordered. Centromere B Antibody Not Reportable [facility] CALEB-1 Antibody Not Reportable [facility] SKIVER MACHINE Antibody Not Reportable [facility] SM Antibody Not Reportable [facility] SS-A/Ro IgG Antibody Not Reportable [facility] SS-B/La IgG Antibody Not Reportable [facility] Serum DNA double strand anti body assay (units/volume)Ordered By: Ruben Steinberg on 12-24-2023 DNA double strand Ab Qn (S) Not Reportable [facility] Serum Scl-70 antibody assay (units/volume)Ordered By: Ruben Steinberg on 12-24-2023 SCL-70 extractable nuclear Ab Qn (S) Not Reportable [facility] Serum Treponema species anti body detectionOrdered By: Ruben Steinberg on 12-24-2023 Treponema sp Ab Ql (S) Non-Reactive [facility] Serum cyclic citrullinated p eptide IgG antibody assay (units/volume)Ordered By: Ruben Steinberg on 12-24-2023 Cyclic citrullinated peptide IgG Qn 3 units 0-19 [facility] Comment on above: Negative <20 Weak po sitive 20 - 39 Moderate positive 40 - 59 Strong positive >59Performed at: [address] [id number] Director: Valente Wong PhD, Phone: [phone] Basophil percentageOrdered B y: Kenyon Guy on 11-13-2023 Bilirubin [Mass/Vol] 0.60 mg/dL 0.20-1.00 [facility] Comment on above: For patients on eltr ombopag therapy, use of Dimension [place] TBIL is not recommended. Cholesterol [Mass/Vol] 178 mg/dL <200 [facility] Comment on above: <200 mg/dL Desirable 200-240 mg/dL Borderline >240 mg/dL High Risk Protein [Mass/Vol] 7.7 g/dL 6.4-8.2 [facility] Triglyceride [Mass/Vol] 211 mg/dL <199 [facility] Comment on above: The drugs N-Acetylcy steine and Metamizole may falsely depress this assay.Serum Triglycerides Reference Interval Normal <150 mg/dL Borderline high 150 - 199 mg/dL High 200 - 499 mg/dL Very High > or = 500 mg/dL Direct bilirubinOrdered By: Kenyon Guy on 11-13-2023 Bilirubin.direct [Mass/Vol] 0.14 mg/dL 0.00-0.30 [facility] Laboratory - Chemistry and C hemistry - challengeOrdered By: Kenyon Guy on 11-13-2023 ALP [Catalytic activity/Vol] 83 U/L 45-117 [facility] ALT [Catalytic activity/Vol] 35 U/L 16-61 [facility] Globulin (S) [Mass/Vol] 3.8 g/dL 2.2-4.2 [facility] Serum or plasma albumin prachi urement (mass/volume)Ordered By: Kenyon Guy on 11-13-2023 Albumin [Mass/Vol] 3.9 g/dL 3.2-5.0 [facility] Serum or plasma cholesterol in HDL measurement (mass/volume)Ordered By: Kenyon Guy on 11-13-2023 Cholesterol in HDL [Mass/Vol] 40 mg/dL >40 [facility] Comment on above: The drugs N-Acetylcy steine and Metamizole may falsely depress this assay. Reference Range HDL <40 mg/dL Low HDL Cholesterol HDL >or= 60 mg/dL High HDL Cholesterol Serum or plasma cholesterol in VLDL measurement (mass/volume)[facility]: [facility] Cholesterol in VLDL [Mass/Vol] 42 mg/dL 5-40 [facility] Serum or plasma low density lipoprotein (LDL) cholesterol measurement (mass/volume)Ordered By: [facility] on 11-13-2023 Cholesterol in LDL [Mass/Vol] 96 mg/dL 0-130 [facility] Thin prep Papanicolaou smear with manual screeningOrdered By: [facility] on 11-13-2023 Thin prep Papanicolaou smear with manual screening 26 U/L 15-37 [facility] Absolute lymphocyte countOrd ered By: Ruben Steinberg on 04-30-2023 Lymphocytes Auto (Unsp spec) [#/Vol] 1.92 10*3/uL 0.83-4.51 [facility] Basophil percentageOrdered B y: Ruben Steinberg on 04-30-2023 Basophils/100 WBC (Bld) 0.6 % 0-1 [facility] Chloride [Moles/Vol] 108 mmol/L 98-107 [facility] Eosinophils/100 WBC (Bld) 5.5 % 0-5 [facility] Glucose [Mass/Vol] 102 mg/dL 74-106 [facility] Comment on above: Fasting Glucose resu lt from 100 to 125 mg/dL suggests IMPAIRED HOMEOSTASIS per A.D.A. criteria. Neutrophils (Bld) [#/Vol] 4.1 10*3/uL 2.0-7.7 [facility] Neutrophils/100 WBC (Bld) 58.6 % 47-70 [facility] Potassium [Moles/Vol] 4.0 mmol/L 3.5-5.1 [facility] Sodium [Moles/Vol] 139 mmol/L 136-145 [facility] WBC (Bld) [#/Vol] 7.0 10*3/uL 4.4-11.0 [facility] Blood erythrocytes count (nu mber/volume)Ordered By: Ruben Steinberg on 04-30-2023 RBC (Bld) [#/Vol] 4.50 10*6/uL 4.6-6.2 [facility] Blood hemoglobin measurement (mass/volume)Ordered By: Ruben Steinberg on 04-30-2023 Hemoglobin (Bld) [Mass/Vol] 13.7 g/dL 13.0-16.5 [facility] Blood lymphocytes/100 leukoc ytesOrdered By: Ruben Steinberg on 04-30-2023 Lymphocytes/100 WBC (Bld) 27.5 % 19-41 [facility] Blood monocytes/100 leukocyt esOrdered By: Ruben Steinberg on 04-30-2023 Monocytes/100 WBC (Bld) 7.5 % 0-10 [facility] Blood platelet mean volumeOr dered By: Ruben Steinberg on 04-30-2023 Platelet mean volume (Bld) [Entitic vol] 9.0 fL 6.2-12.0 [facility] Determination of erythrocyte mean corpuscular volume (MCV)Ordered By: Ruben Steinberg on 04-30-2023 MCV (RBC) [Entitic vol] 91.3 fL 80-94 [facility] Hematocrit Auto (Bld) [Volum e fraction]Ordered By: Ruben Steinberg on 04-30-2023 Hematocrit (Bld) [Volume fraction] 41.1 % 40-54 [facility] Laboratory - Chemistry and C hemistry - challengeOrdered By: Ruben Steinberg on 04-30-2023 CO2 [Moles/Vol] 27.0 mmol/L 21.0-32.0 [facility] Urea nitrogen/Creatinine [Mass ratio] 14.3 mg/mg 10-20 [facility] Laboratory - Hematology and Cell countsOrdered By: Ruben Steinberg on 04-30-2023 Erythrocyte distribution width (RBC) [Entitic vol] 44.9 fL 35.1-43.9 [facility] Erythrocyte distribution width (RBC) [Ratio] 13.5 % 11.6-14.6 [facility] Immature granulocytes/100 WBC (Bld) 0.300 % 0.0-0.9 [facility] Comment on above: IG% - Immature Granu locytes (promyelocytes, myelocytes and metamyelocytes) > 1% indicates that a LEFT SHIFT is Present. MCH (RBC) [Entitic mass] 30.4 pg 27.0-32.0 [facility] Nucleated RBC/100 WBC (Bld) [Ratio] 0 % 0-5 [facility] MCHC Auto (RBC) [Mass/Vol]Or dered By: Ruben Steinberg on 04-30-2023 MCHC (RBC) [Mass/Vol] 33.3 g/dL 32-36 [facility] No Panel InformationOrdered By: Ruben Steinberg on 04-30-2023 Estimated GFR (MDRD) Amer 89 mL/min >60 [facility] Comment on above: GFR Calc Estimated GFR (MDRD) Non-Af Amer 74 mL/min >60 [facility] Comment on above: Non- GFR Calc Prostate Specific Antigen Screen 3.17 ng/mL 0.00-4.00 [facility] Comment on above: This test was perfor med using the TPSA assay method for theZigabid chemistry system. Values obtained with differentassay methods cannot be used interchangably.When changing PSA assays in the course of monitoring apatient, additional sequential testing should be carriedout to confirm baseline values. Platelets bldOrdered By: Mell Steinberg on 04-30-2023 Platelets (Bld) [#/Vol] 284 10*3/uL 150-450 [facility] Serum or plasma calcium prachi urement (mass/volume)Ordered By: Ruben Steinberg on 04-30-2023 Calcium [Mass/Vol] 8.9 mg/dL 8.5-10.1 [facility] Serum or plasma creatinine m easurement (mass/volume)Ordered By: Ruben Steinberg on 04-30-2023 Creatinine [Mass/Vol] 1.05 mg/dL 0.70-1.30 [facility] Comment on above: The validity of the calculated GFR & GFRAA in patients over 70 years has not been determined. Clinical correlation is essential. Serum or plasma urea nitroge n measurement (mass/volume)Ordered By: Ruben Steinberg on 04-30-2023 Urea nitrogen [Mass/Vol] 15 mg/dL 7-18 [facility] Thin prep Papanicolaou smear with manual screeningOrdered By: Ruben Steinberg on 04-30-2023 Thin prep Papanicolaou smear with manual screening 4 5-15 [facility] Basophil percentageon 2021 Bilirubin [Mass/Vol] 0.50 mg/dL 0.20-1.00 [facility] Work Phone: Comment on above: For patients on eltr ombopag therapy, use of Dimension [place] TBIL is not recommended. Cholesterol [Mass/Vol] 159 mg/dL <[address] [facility] Work Phone: Comment on above: <200 mg/dL Desirable 200-240 mg/dL Borderline >240 mg/dL High Risk Protein [Mass/Vol] 7.6 g/dL 6.4-8.2 [facility] Work Phone: Triglyceride [Mass/Vol] 201 mg/dL <199 [facility] Work Phone: Comment on above: The drugs N-Acetylcy steine and Metamizole may falsely depress this assay.Serum Triglycerides Reference Interval Normal <150 mg/dL Borderline high 150 - 199 mg/dL High 200 - 499 mg/dL Very High > or = 500 mg/dL Direct bilirubinon 2 Bilirubin.direct [Mass/Vol] 0.15 mg/dL 0.00-0.30 [facility] Work Phone: Laboratory - Chemistry and C hemistry - challengeon 08-28-2022 ALP [Catalytic activity/Vol] 79 U/L 45-117 [facility] Work Phone: ALT [Catalytic activity/Vol] 32 U/L 16-61 [facility] Work Phone: Globulin (S) [Mass/Vol] 3.8 g/dL 2.2-4.2 [facility] Work Phone: Serum or plasma albumin prachi urement (mass/volume)on 08-28-2022 Albumin [Mass/Vol] 3.8 g/dL 3.2-5.0 [facility] Work Phone: Serum or plasma cholesterol in HDL measurement (mass/volume)on 08-28-2022 Cholesterol in HDL [Mass/Vol] 37 mg/dL >40 [facility] Work Phone: Comment on above: The drugs N-Acetylcy steine and Metamizole may falsely depress this assay. Reference Range HDL <40 mg/dL Low HDL Cholesterol HDL >or= 60 mg/dL High HDL Cholesterol Serum or plasma cholesterol in VLDL measurement (mass/volume)on 08-28-2022 Cholesterol in VLDL [Mass/Vol] 40 mg/dL 5-40 [facility] Work Phone: Serum or plasma low density lipoprotein (LDL) cholesterol measurement (mass/volume)on 08-28-2022 Cholesterol in LDL [Mass/Vol] 82 mg/dL 0-130 [facility] Work Phone: Thin prep Papanicolaou smear with manual screeningon 08-28-2022 Thin prep Papanicolaou smear with manual screening 22 U/L 15-37 [facility] Work Phone: Vital Signs Date Time Vital Sign Value Performing Clinician Faci lity 12-22-2024 23:19-0500 Body temperature 98.7 [degF] Dr. Ruben Steinberg DO Work Phone: [facility] 12-22-2024 23:19-0500 Diastolic blood pressure 88 mm[Hg] Dr. Ruben Steinberg DO Work Phone: [facility] 12-22-2024 23:19-0500 Heart rate 97 /min Dr. Ruben Steinberg DO Work Phone: [facility] 12-22-2024 23:19-0500 Respiratory rate 16 /min Dr. Ruben Steinberg DO Work Phone: [facility] 12-22-2024 23:19-0500 SaO2% (BldA) [Mass fraction] 99 % Dr. Ruben Steinberg DO Work Phone: [facility] 12-22-2024 23:19-0500 Systolic blood pressure 127 mm[Hg] Dr. Ruben Steinberg DO Work Phone: [facility] 12-22-2024 19:14-0500 Body height 177.[address] Ruben Steinberg DO Work Phone: [facility] 12-20-2024 15:12-0500 Body temperature 98.9 [degF] Dr. Ruben Steinberg DO Work Phone: [facility] 12-20-2024 15:12-0500 Diastolic blood pressure 69 mm[Hg] Dr. Ruben Steinberg DO Work Phone: [facility] 12-20-2024 15:12-0500 Heart rate 79 /min Dr. Ruben Steinberg DO Work Phone: [facility] 12-20-2024 15:12-0500 Respiratory rate 17 /min Dr. Ruben Steinberg DO Work Phone: [facility] 12-20-2024 15:12-0500 SaO2% (BldA) [Mass fraction] 95 % Dr. Ruben Steinberg DO Work Phone: [facility] 12-20-2024 15:12-0500 Systolic blood pressure 118 mm[Hg] Dr. Ruben Steinberg DO Work Phone: [facility] 12-20-2024 12:04-0500 Body mass index (BMI) [Ratio] 29 kg/m2 Dr. Ruben Steinberg DO Work Phone: [facility] 12-20-2024 12:04-0500 Body weight 91.[address] Ruben Steinberg DO Work Phone: [facility] 12-15-2024 11:01-0500 Body mass index (BMI) [Ratio] 29.5 kg/m2 Dr. Ruben Steinberg DO Work Phone: [facility] 12-15-2024 11:01-0500 Body weight 96.[address] Ruben Steinberg DO Work Phone: [facility] 12-15-2024 11:01-0500 Diastolic blood pressure 69 mm[Hg] Dr. Ruben Steinberg DO Work Phone: [facility] 12-15-2024 11:01-0500 Heart rate 65 /min Dr. Ruben Steinberg DO Work Phone: [facility] 12-15-2024 11:01-0500 Respiratory rate 16 /min Dr. Ruben Steinberg DO Work Phone: [facility] 12-15-2024 11:01-0500 Systolic blood pressure 120 mm[Hg] Dr. Ruben Steinberg DO Work Phone: [facility] 11-19-2023 09:12-0500 Body height 180.[address] Ruben Steinberg Work Phone: [facility] 11-19-2023 09:12-0500 Body mass index (BMI) [Ratio] 29.8 kg/m2 Dr. Ruben Steinberg Work Phone: [facility] 11-19-2023 09:12-0500 Body weight 97.[address] Ruben Steinberg Work Phone: [facility] 11-19-2023 09:12-0500 Diastolic blood pressure 71 mm[Hg] Dr. Ruben Steinberg Work Phone: [facility] 11-19-2023 09:12-0500 Heart rate 68 /min Dr. Ruben Steinberg Work Phone: [facility] 11-19-2023 09:12-0500 Respiratory rate 16 /min Dr. Ruben Steinberg Work Phone: [facility] 11-19-2023 09:12-0500 Systolic blood pressure 114 mm[Hg] Dr. Ruben Steinberg Work Phone: [facility] 09-02-2022 13:28-0400 Body height 180.[address] Ruebn Steinberg Work Phone: [facility] Work Phone: 09-02-2022 13:28-0400 Body mass index (BMI) [Ratio] 29 kg/m2 Dr. Ruben Steinberg Work Phone: [facility] Work Phone: 09-02-2022 13:28-0400 Body weight 94.[address] Ruben Steinberg Work Phone: [facility] Work Phone: 09-02-2022 13:28-0400 Diastolic blood pressure 78 mm[Hg] Dr. Ruben Steinberg Work Phone: [facility] Work Phone: 09-02-2022 13:28-0400 Heart rate 66 /min Dr. Ruben Steinberg Work Phone: [facility] Work Phone: 09-02-2022 13:28-0400 Respiratory rate 16 /min Dr. Ruben Steinberg Work Phone: [facility] Work Phone: 09-02-2022 13:28-0400 SaO2% (BldA) [Mass fraction] 97 % Dr. Ruben Steinberg Work Phone: [facility] Work Phone: 09-02-2022 13:28-0400 Systolic blood pressure 128 mm[Hg] Dr. Ruben Steinberg Work Phone: [facility] Work Phone: Encounters Encounter Date Encounter Type Care Provider Facility Start: 02-03-2025 End: 02-03-[address] Ruben Steinberg DO Work Phone: [facility] Work Phone: Start: 02-03-2025 End: 02-03-[address] [facility] Start: 02-03-2025 End: 02-03-2025 ambulatory [facility] Facility:[facility] Start: 01-24-2025 End: 01-24-2025 Patient encounter procedure Ericka SLATER -[facility] Work Phone: Start: 01-24-2025 End: 01-24-2025 ambulatory [facility] Start: 12-27-2024 End: 12-27-2024 Patient encounter procedure Ericka SLATER -[facility] Work Phone: Start: 12-27-2024 End: 12-27-2024 ambulatory [facility] Start: 12-22-2024 End: 12-22-2024 Emergency department patient visit Dr. Ravi Gage MD -Emergency Department Work Phone: Start: 12-20-2024 End: 12-20-2024 Emergency department patient visit Dr. Luke Silveira DO -Emergency Department Work Phone: Start: 12-15-2024 End: 12-15-[address] Kenyon Guy MD -[facility] Work Phone: Start: 12-15-2024 End: 12-15-2024 ambulatory [facility] Start: 12-07-2024 End: 12-07-[address] Kenyon Guy MD -Laboratory Work Phone: Start: 12-07-2024 End: 12-07-2024 ambulatory [facility] Facility:[facility] Start: 08-04-2024 End: 08-04-2024 ambulatory [facility] Facility:[facility] Start: 07-22-2024 End: 07-22-2024 ambulatory [facility] Start: 01-19-2024 Non-patient / Non-visit Dr. Ruben Steinberg Work Phone: [facility] Work Phone: Start: 01-15-2024 Non-patient / Non-visit Dr. Ruben Steinberg Work Phone: [facility] Work Phone: Start: 01-15-2024 End: 01-15-[address] Ruben Steinberg Work Phone: [facility] Work Phone: Start: 01-15-2024 End: 01-15-[address] [facility]: Start: 12-24-2023 End: 12-24-[address] Ruben Steinberg Work Phone: [facility] Work Phone: Start: 12-24-2023 End: 12-24-[address] Ruben Steinberg Work Phone: [facility] Start: 11-19-2023 End: 11-19-[address] Ruben Steinberg Work Phone: [facility] Work Phone: Start: 11-13-2023 End: 11-13-[address] Ruben Steinberg Work Phone: [facility] Work Phone: Start: 11-13-2023 End: 11-13-[address] [facility] Start: 09-17-2023 Non-patient / Non-visit Dr. Ruben Steinberg Work Phone: [facility] Start: 09-17-[address] Ruben shipley [facility] Work [facility]: Start: 04-30-2023 End: 04-30-2023 ambulatory [facility] Work Phone: Start: 04-30-2023 End: 04-30-2023 Patient encounter procedure [facility] Start: 09-02-2022 End: 09-02-[address] Ruben Steinberg Work Phone: [facility] Start: 08-28-2022 End: 08-28-[address] Ruben Steinberg Work Phone: [facility] Work Phone: Start: 08-28-2022 End: 08-28-[address] Ruben Steinberg Work Phone: [facility] Start: 04-16-2016 End: 04-16-2016 Patient encounter [facility] Procedures Date Procedure Procedure Detail Performing Clinician Start: 12-22-2024 Plain chest X-ray Dr. Holly Steinberg DO Work Phone: Start: 12-22-2024 Measurement of occul t blood in stool specimen using immunoassay Dr. Ruben Steinberg DO Work Phone: Start: 12-20-2024 SARS-CoV-2, Influenz a & RSV (PCR) Dr. Ruben Steinberg DO Work Phone: Start: 12-20-2024 X-ray of chest, PA a nd lateral views Dr. Ruben Steinberg DO Work Phone: Start: 01-15-2024 Radionuclide imaging of perfusion of myocardium under exercise stress Dr. Ruben Steinberg Work Phone: Start: 04-26-2011 History of placement of stent for coronary artery disease History of coronary artery stent placement Dr. Kenyon Guy MD Comment on above: [facility] 04/26/11; Plan of Treatment Date Care Activity Detail Author Start: 12-22-2024 [facility] Start: 12-22-2024 Enteric precautions [facility] Start: 12-20-2024 [facility] Start: 12-20-2024 [facility] Patient Education Treating Gastr itis Understanding Gastritis Tracking Symptoms of Heart Failure ED Gastritis (Adult) [facility] Work Phone: Patient referral [facility] Work Phone: Radionuclide imaging of perfusion of myocardium under exercise stress [facility] Payers Date Payer Category Payer Self-pay [id number] 2012 Medicare [id number] Unknown [id number] Unknown [id number] 2.16.8 [id number] Unknown [id number] 2.16.8 [id number] Unknown [id number] 2.16.8 [id number] Unknown [id number] 2.16.8 [id number] Unknown [id number] 2.16.8 [id number] Unknown [id number] 2.16.8 [id number] Unknown [id number] 2.16.8 [id number] Unknown [id number] 2.16.8 [id number] Social History Date Type Detail Facility Tobacco smoking stat us TXIS Unknown if ever smoked [facility] Work Phone: Start: 1950 Sex Assigned At Male [facility] Start: 09-02-2022 End: 11-19-2023 Tobacco smoking status NHIS Unknown if ever smoked [facility] Start: 08-15-2021 None [facility] Start: 08-15-2021 Non-smoker [facility] Start: 01-24-2025 Tobacco smoking stat us NHIS Never smoked tobacco (finding) [facility] Start: 02-08-2025 Sex Male (finding) [facility] Mental Status Date Assessment Result Facility 12-22-2024 Cognitive function Level Of Cons ciousness Awake;Alert;Appropriate;Follow s Commands [facility] Work Phone: Evaluation note 12-15-2024 Note Date & Type Note Facility 12-15-2024 Evaluation note Diagnosis Onset Date Resolution Hyperlipidemia chronic December 032024 11:00am Paroxysmal atrial fibrillation chronic December 15, 2024 11:00am History of coronary artery stent placement April 26, 2011 resolved December 15, 2024 11:00am Gastritis inactive December 27, 2024 8:44am Influenza A inactive December 8:44am Nausea inactive December 27, 2024 8:44am Occult GI bleeding inactive 2024 8:44am Gastritis inactive January 24 9:59am [facility] Work Phone: Evaluation note 04-26-2011 Note Date & Type Note Facility 04-26-2011 Evaluation note Diagnosis Onset Date Hyperlipidemia chronic Paroxysmal atrial fibrillation chronic History of coronary artery stent placement April 26, 2011 resolved [facility] Work Phone: Evaluation note Note Date & Type Note Facility Evaluation note No assessment information availa ble [facility] Work Phone: Reason for referral (narrative) Note Date & Type Note Facility Reason for referral (narrative) No reason for referral information available [facility] Work Phone: Summary Purpose Family History No Family History Records Found Relationship Condition Age at Onset Recorded Date/T armando Unknown Family History?No pe rtinent history Unknown December 28, 2015 4:29am Family History?No pe rtinent history Unknown December 28, 2015 4:29am Relationship Condition Age at Onset Recorded Date/T armando Unknown Family History?No pe rtinent history Unknown December 28, 2015 3:29am Family History?No pe rtinent history Unknown December 28, 2015 3:29am Relationship Condition Age at Onset Recorded Date/T armando Unknown Family History?No pe rtinent history Unknown December 28, 2015 4:29am Family History?No pe rtinent history Unknown December 28, 2015 4:29am Family History?No pe rtinent history Unknown June 27, 2024 3:30pm Advance Directives No Advanced Directives Records Found Advance Directive Response Recorded Date/ Time Advance Directives No July 02, 2020 7:18am Living Will No July 02 0 7:18am Power of Air Crew Member No July 02 7:18am Advance Directive Response Recorded Date/ Time Advance Directives No July 02, 2020 6:18am Living Will No July 02 0 6:18am Power of Air Crew Member No July 02 6:18am Advance Directive Response Recorded Date/ Time Living Will No July 02 0 7:18am Do you have a Healthcare Power of Air Crew Member? No July 02, 2020 7:18am Living Will Yes December 20 3:27pm Do you have a Healthcare Power of Air Crew Member? Yes December 20, 2024 3:27pm Name of Medical Power of Air Crew Member December 20, 2024 3:27pm Living Will No December 22 8:35pm Do you have a Healthcare Power of Air Crew Member? No December 22, 2024 8:35pm Advance Directives No June 27, 2024 3:30pm Chief Complaint and Reason for Visit Chief Complaint 1 Y FU Reason for Visit Hyperlipidemia Paroxysmal atrial fibrillation History of coronary artery stent placement Chief Complaint SCREENING E-ORDER Chief Complaint SCREENING E-ORDER 1 Y FU Reason for Visit Hyperlipidemia Paroxysmal atrial fibrillation History of coronary artery stent placement Chief Complaint E-ORDER 1 Y FU CAD ASHD CAD ASHD Amb Documentation Amb Documentation Reason for Visit Hyperlipidemia Paroxysmal atrial fibrillation History of coronary artery stent placement Chief Complaint Admit Date 1 y fu w [employer] per [employer] December 15, 2024 11:00am COUGH December 20, 2024 12:02pm flu A positive,n/v/ and dizziness Februa 2024 7:12pm Gastritis December 27, 2024 8:44am 1 M FU January 24, 2025 9:5 9am Reason for Visit Admit Date Hyperlipidemia December 15, 2024 11:00am Paroxysmal atrial fibrillation December 15, 2024 11:00am History of coronary artery stent placeme nt December 15, 2024 11:00am Gastritis December 27, 2024 8:44am Influenza A December 27, 2024 8:44am Nausea December 27, 2024 8:44am Occult GI bleeding December 27, 2024 8:44am Gastritis January 24, 2025 9:5 9am Additional Source Comments (unrecognized sect ion and content) No Status Records FoundNo Status Records Found INFORMATION SOURCE (unrecogn ized section and content) DATE CREATED AUTHOR 10/22/2018 [facility] DATE CREATED AUTHOR AUTHOR'S ORGANIZ ATION 02/10/2025 [facility] Goals (unrecognized section and content) Goals may be documented in a n alternate sectionGoals may be documented in an alternate sectionGoals may be documented in an alternate sectionGoals may be documented in an alternate sectionGoals may be documented in an alternate sectionGoals may be documented in an alternate sectionGoals may be documented in an alternate section Care Teams (unrecognized sec tion and content) Team Status: Active Member Role Status Dates Dr. Ruben Steinberg DO Family Provider Active Dr. Ruben Steinberg DO Primary Care Provider Active Team Status: Inactive Member Role Status Dates Dr. Ruben Steinberg DO Primary Care Prov ider, Attending Provider, Referring Provider Active Team Status: Active Member Role Status Dates Dr. Ruben Steinberg DO Primary Care Provider Active Dr. Alireza Solomon MD Attending Provider Active Team Status: Active Member Role Status Dates Dr. Ruben Steinberg DO Primary Care Provider Active Self Referred Attending Provider, Referring Provider A ctive Team Status: Inactive Member Role Status Dates Dr. Ruben Steinberg DO Primary Care Provider Active Dr. Kenyon Guy MD Attending Provider, Referring Pro vider Active Team Status: Inactive Member Role Status Dates Dr. Ruben Steinberg DO Primary Care Provider, Referrin g Provider Active Dr. Kenyon Guy MD Attending Provider Active Team Status: Inactive Member Role Status Dates Dr. Ruben Steinberg DO Primary Care Provider, Attendin g Provider Active Team Status: Active Member Role Status Dates Dr. Ruben Steinberg DO Primary Care Provider Active Dayanna Valdez [employer], [employer] Attending Provider Active Team Status: Active Member Role Status Dates Dr. Ruben Steinberg DO Primary Care Provider Active Dr. Kenyon Guy MD Attending Provider, Referring Provider, Other Provider Active Team Status: Active Member Role Status Dates Dr. Ruben Steinberg DO Primary Care Provider Active Alan Lindsey NP [employer]JonathanC Attending Provider Active Team Status: Active Member Role Status Dates Dr. Ruben Steinberg DO Primary Care Provider Active Team Status: Inactive Member Role Status Dates Dr. Ruben Steinberg DO Primary Care Provider Active Start: December 07, 2024 End: December 07, 2024 Dr. Kenyon Guy MD Attending Provider Active S tart: December 07, 2024 End: December 07, 2024 Dr. Kenyon Guy MD Referring Provider Active S tart: December 07, 2024 End: December 07, 2024 Team Status: Inactive Member Role Status Dates Dr. Ruben Steinberg DO Primary Care Provider Active Start: December 15, 2024 End: December 15, 2024 Dr. Ruben Steinberg DO Referring Provider Active Start: December 15, 2024 End: December 15, 2024 Dr. Kenyon Guy MD Attending Provider Active S tart: December 15, 2024 End: December 15, 2024 Team Status: Inactive Member Role Status Dates Dr. Ruben Steinberg DO Primary Care Provider Active Start: December 20, 2024 End: December 20, 2024 Dr. Luke Silveira DO Attending Provider Active Start: December 20, 2024 End: December 20, 2024 Dr. Luke Silveira DO Emergency Provider Active Start: December 20, 2024 End: December 20, 2024 Team Status: Inactive Member Role Status Dates Dr. Ruben Steinberg DO Primary Care Provider Active Start: December 22, 2024 End: December 22, 2024 Ravi Gage MD Attending Provider Active Star t: December 22, 2024 End: December 22, 2024 Ravi Gage MD Referring Provider Active Star t: December 22, 2024 End: December 22, 2024 Ravi Gage MD Emergency Provider Active Star t: December 22, 2024 End: December 22, 2024 Team Status: Inactive Member Role Status Dates Dr. Ruben Steinberg DO Primary Care Provider Active Start: December 27, 2024 End: December 27, 2024 Dr. Ruben Steinberg DO Referring Provider Active Start: December 27, 2024 End: December 27, 2024 BRYON Mcclendon Attending Provider Active S tart: December 27, 2024 End: December 27, 2024 Team Status: Inactive Member Role Status Dates Dr. Ruben Steinberg DO Primary Care Provider Active Start: January 24, 2025 End: January 24, 2025 Dr. Ruben Steinberg DO Referring Provider Active Start: January 24, 2025 End: January 24, 2025 BRYON Mcclendon Attending Provider Active S tart: January 24, 2025 End: January 24, 2025 Team Status: Inactive Member Role Status Dates Dr. Ruben Steinberg DO Primary Care Provider Active Start: February 03, 2025 End: February 03, 2025 Dr. Ruben Steinberg DO Attending Provider Active Start: February 03, 2025 End: February 03, 2025 FOR RECORDS PERTAINING TO PATIENTS WHO ARE [...] BE BASED ON THE PRIMARY CLINICAL RECORDS. [facility] [employer] provides no warranty or guarantee of the accuracy or completeness of information in this document.
--- NOTE | 2025-10-27 13:13 | EX.ED.DYSGE1 ---
HPI History of Present Illness Chief Complaint: General Illness Informant: patient Narrative Narrative: 75-year-old male presenting to the emergency room with chief complaint of diarrhea. Patient states that yesterday morning he began to feel achy and nauseous and weak. At the afternoon he developed diarrhea which describes as black water. This persisted throughout the night. Continues to have belching and nausea. He feels generalized weakness. No reported fevers. States his urine is orange-colored. He got on the Internet and it said that he could develop a kidney issue so he came to emergency. Patient states he has no medical problems. He sees cardiology and has had cardiac stents in the past as well as atrial fibrillation. Patient tells me he takes losartan and metoprolol. He denies any rashes or leg swelling. [facility] Medical History Former smoker Frequent nosebleeds Paroxysmal atrial fibrillation History of CVA (cerebrovascular accident) (2015) Paroxysmal atrial flutter Hypertriglyceridemia Palpitations Atherosclerotic heart disease of [place] coronary artery without angina pectoris Vertebral artery stenosis Vertigo Hyperlipidemia Home Medications ?Medication ?Instructions ?Recorded ?Last Taken ?Type aspirin 81 mg tablet,delayed 81 mg PO QDAY #90 tabs 08/29/21 Unknown Rx release (Adult Low Dose Aspirin) nitroglycerin 0.4 mg sublingual 0.4 mg sublingual Q5M PRN chest 04/06/23 Unknown Rx tablet (Nitrostat) pain #25 tabs pravastatin 40 mg tablet 40 mg PO QHS #90 tabs 02/29/24 Unknown Rx famotidine 20 mg tablet 20 mg PO QHS #30 tabs 12/27/24 Unknown Rx lorazepam 0.5 mg tablet 0.5 mg PO QHS PRN anxiety #10 tabs 12/27/24 Unknown Rx omeprazole 40 mg capsule,delayed 40 mg PO QDAY #30 caps 01/24/25 Unknown Rx release losartan 50 mg tablet 50 mg PO DAILY #90 tabs 03/06/25 Unknown Rx metoprolol succinate 50 mg 50 mg PO DAILY #90 tabs 09/25/25 Unknown Rx tablet,extended release 24 hr Allergy/AdvReac Type Severity Reaction Status Date / Time doxycycline AdvReac Severe gastritis Verified 10/27/25 11:27 Family History Father No problems noted. Mother No problems noted. Surgical History History of coronary angioplasty (09/18/11) History of radiofrequency ablation procedure for cardiac arrhythmia (04/28/11) History of left heart catheterization (07/02/20) History of coronary artery stent placement (04/26/11) History of knee replacement Hx of hernia repair History of repair of rotator cuff History of nasal septoplasty Hx of appendectomy Social History household members: spouse housing: house Smoking Status: Never smoker how long ago did patient quit smokin-30 years ago alcohol intake: current alcohol intake frequency: holidays/special occasions only Alcohol type: beer substance use type: does not use caffeine: No what type of physical activity do you participate in: bicycling frequency: 3-4 times per week duration: 45-60 minutes/day seatbelt use: always do you feel safe at home: Yes additional social history: Daily aspirin use. Does not use ibuprofen daily. ROS ROS ED ROS Narrative Generalized weakness Constitutional Constitutional ED: Reports chills; Denies fever(s) or weight loss Eyes Eyes: Denies change in vision or diplopia ENT ENT ED: Denies ear pain, rhinorrhea or sore throat Cardiovascular Cardiovascular: Denies chest pain, orthopnea, palpitations or racing heartbeat Respiratory/Chest Respiratory/Chest: Denies cough, dyspnea or orthopnea Gastrointestinal Gastrointestinal: Reports diarrhea and nausea; Denies abdominal pain or vomiting Genitourinary Genitourinary ED: Denies dysuria, hematuria or urinary frequency Musculoskeletal Musculoskeletal: Reports myalgias; Denies arthralgias, back pain or neck pain Integumentary Denies abscess or rash Neurologic Neurologic: Denies headache(s), paresthesias or weakness Psychiatric Psychiatric: Denies anxiety, depression, suicidal ideation or suicidal thoughts Endocrine Endocrinology: Denies polydipsia, polyphagia or polyuria Allergic/Immunologic Allergic/Immunologic ED: Denies mouth swelling, tongue swelling or urticaria EXAM Physical Exam Const Vital Signs: 10/27/25 11:25 10/27/25 11:27 10/27/25 12: Temperature 98.3 F 98.3 F 98.9 F Temperature Source Oral Oral Oral Pulse Rate 109 H 104 H 89 Respiratory Rate 22 H 20 H 15 Blood Pressure 122/96 H 122/96 H 123/82 H Blood Pressure Mean 104 104 95 Pulse Ox 99 99 99 Oxygen Delivery Method Room Air Room Air Room Air 10/27/25 13:00 10/27/25 14:00 10/27/25 15:00 Temperature 98.7 F 98.0 F Temperature Source Oral Oral Pulse Rate 89 96 998 H Respiratory Rate 20 H 19 H 20 H Blood Pressure 132/80 H 132/64 H 134/83 H Blood Pressure Mean 97 86 100 Pulse Ox 98 100 98 Oxygen Delivery Method Room Air Room Air Room Air Positive well nourished and well developed General Appearance ED: well developed and NAD HEENT Reports normocephalic, head/scalp atraumatic and moist mucous membranes Eyes PERRL and EOMs intact bilaterally Neck no lymphadenopathy, supple and no JVD Resp normal respiratory effort and clear to auscultation bilaterally Cardio regular rate, regular rhythm and no murmurs GI normal to inspection, nondistended, normoactive bowel sounds and non-tender Inspection: Negative for abdominal distention Auscultation: hyperactive bowel sounds Palpation: soft Back/Spine no CVA tenderness and normal ROM Extremity normal to inspection General Extremety ED: Negative for edema General Extremity: Negative for edema Neuro oriented x3 and CN's II-XII intact bilaterally Sensorium / Orientation: alert Motor Exam: strength 5/5 throughout Psych mental status grossly normal Mood & Affect: Negative for depressed or tearful Skin no rashes or lesions noted and no wounds MDM MDM MDM Narrative Medical decision making narrative: Differential diagnosis includes but not limited to GERD upper GI bleed diarrhea colitis anemia requiring transfusion acute kidney injury electrolyte abnormalities Patient's hemoglobin today is 12.6. This is about 4 g lower than previous several months ago. His BUN is 43. Hemoccult was obtained and is positive.. Normal electrolytes creatinine 1.03 normal LFTs. Urinalysis is negative. Patient has an upper GI bleed score of 7. I spoke with the hospitalist regarding potential for admission. Because the patient has his at home who has Alzheimer's he is reluctant to stay in the hospital. I have him hold his aspirin. He used to be on a PPI but does not take 1 anymore and I can write for him to be on twice daily Protonix. I will ask him to have a repeat visit with his doctor on Thursday for hemoglobin check. History & Record Review Discussion w/independent historian: Patient Additional record(s) reviewed:: Prior labs Lab Data Attestation: I reviewed the patient's lab results. Labs: Laboratory Results - last 24 hr 10/27/25 10/27/25 13:30 15:00 WBC 8.2 RBC 4.16 L Hgb 12.6 L Hct 35.9 L MCV 86.3 MCH 30.3 MCHC 35.1 RDW Std Deviation 39.8 RDW Coeff of Jose 12.7 Plt Count 313 MPV 9.3 Immature Gran % (Auto) 0.500 Neut % (Auto) 66.0 Lymph % (Auto) 26.2 Norman % (Auto) 5.8 Eos % (Auto) 1.1 Baso % (Auto) 0.4 Absolute Neuts (auto) 5.4 Absolute Lymphs (auto) 2.15 Nucleated RBC % 0 Sodium 138 Potassium 4.1 Chloride 105 Carbon Dioxide 20.2 Anion Gap 13 BUN 43 H Creatinine 1.03 Estim Creat Clear Calc 70.84 Est GFR (MDRD) Non-Af 76 BUN/Creatinine Ratio 41.6 H Glucose 101 H Calcium 9.3 Total Bilirubin 0.63 Direct Bilirubin 0.24 AST 27 ALT 22 Alkaline Phosphatase 67 Total Protein 7.3 Albumin 4.4 Globulin 2.9 Lipase 29 Urine Color Yellow Urine Clarity Clear Urine pH 6.0 Ur Specific Edison 1.020 Urine Protein 15 H Urine Glucose (UA) Normal Urine Ketones 15 H Urine Occult Blood Negative Urine Nitrite Negative Urine Bilirubin Negative Urine Urobilinogen Normal Ur Leukocyte Esterase Negative Urine RBC 0 SEEN Urine WBC 0 SEEN Ur Squamous Epith Cells 0 SEEN Urine Bacteria 0 SEEN Urine Mucus 0 SEEN Management Discussion w/another healthcare provider: Hospitalist (Dr. Green) Discharge Plan Triage Chief Complaint: General Illness ED Provider: Amado Ellison Dx/Rx/DC Orders Prescriptions: No Action aspirin [Adult Low Dose Aspirin] 81 mg tablet,delayed release (DR/EC) 81 mg PO QDAY Qty: 90 3RF famotidine 20 mg tablet 20 mg PO QHS Qty: 30 2RF lorazepam 0.5 mg tablet 0.5 mg PO QHS PRN (Reason: anxiety) Qty: 10 0RF omeprazole 40 mg capsule,delayed release(DR/EC) 40 mg PO QDAY Qty: 30 5RF nitroglycerin [Nitrostat] 0.4 mg tablet, sublingual 0.4 mg SUBLINGUAL Q5M PRN (Reason: chest pain) Qty: 25 3RF pravastatin 40 mg tablet 40 mg PO QHS Qty: 90 4RF losartan 50 mg tablet 50 mg PO DAILY Qty: 90 3RF metoprolol succinate 50 mg tablet extended release 24 hr 50 mg PO DAILY Qty: 90 3RF Primary Care Provider: Ruben Steinberg Referrals: Ruben Steinberg DO [Primary Care Provider, Family Practice] Print Language: Maltese D/C Safety Score for UGIB Assessment Total Risk Score: 1 D/C Safety Score for LGIB Assessment Probability of safe discharge: 99% Total Risk Score: 1
[2025-10-27] MEDS: 0.9% Normal Saline (1000mL) 1,000 ML 1000 ML IV (13:31)
[2025-10-27 13:46] LABS: Hematocrit 35.9 % (40-54); Hemoglobin 12.6 g/dL (13.0-16.5); Immature Granulocytes Count 0.040 X10^3/uL (0.0-0.0); Mean Corp Hgb Conc 35.1 g/dL (32-36); Mean Corpuscular Volume 86.3 fL (80-94); Mean Platelet Vol. 9.3 fl (6.2-12.0); NRBC Flagged by Analyzer 0 % (0-5); Platelet Count 313 K/mm3 (150-450); RBC Distribution Width CV 12.7 % (11.6-14.6); RBC Distribution Width SD 39.8 fl (35.1-43.9); Red Blood Count 4.16 M/mm3 (4.6-6.2); White Blood Count 8.2 K/mm3 (4.4-11.0)
[2025-10-27 14:07] LABS: AST(SGOT) 27 U/L (<=37); Alanine Aminotransfer ALT/SGPT 22 U/L (<=46); Albumin, Serum 4.4 g/dL (3.4-4.8); Alkaline Phosphatase 67 U/L (40-129); Anion Gap 13 (7-18); BUN 43 mg/dL (4-19); BUN/Creat Ratio 41.6 RATIO (10-20); Bilirubin, Direct 0.24 mg/dL (0.00-0.30); Calcium,Total 9.3 mg/dL (7.6-11.0); Carbon Dioxide 20.2 mmol/L (20.0-29.0); Chloride 105 mmol/L (96-106); Estimated Creatinine Clearance 70.84 ml/min (50-250); Globulin 2.9 g/dL (2.2-4.2); Glucose 101 mg/dL (70-99); Lipase 29 U/L (13-75); Potassium 4.1 mmol/L (3.5-5.1)
[2025-10-27 15:08] LABS: Mucous, Urine 0 SEEN /hpf (<or=2+); Red Blood Cells-Urine 0 SEEN /hpf (0-5); Squamous Epithelial Cells - UA 0 SEEN /hpf (0-5)
[2025-10-27 15:12] LABS: Color, Urine Yellow (Yellow); Glucose, Dipstick Normal (Normal); Ketone-Dipstick 15 mg/dl (Negative); Leukocyte Esterase-Dipstick Negative /ul (Negative); Nitrite-Dipstick Negative (Negative); Occult Blood-Urine Negative /ul (Negative); Protein-Dipstick 15 mg/dl (Negative); Specific Gravity, Urine 1.020 (1.002-1.030); Urine Bilirubin Dipstick Negative (Negative)
== END 2025-10-27 16:05 | disposition home or self-care (01) ==
PROVIDERS: Emergency Provider Emergency Medicine; PCP Family Medicine; Visit Provider Emergency Medicine
DX: R19.7 Diarrhea, unspecified (principal); R14.2 Eructation; Z95.5 Presence of coronary angioplasty implant and graft; Z79.899 Other long term (current) drug therapy; I25.10 Atherosclerotic heart disease of native coronary artery without angina pectoris; Z87.891 Personal history of nicotine dependence; R11.0 Nausea; Z79.82 Long term (current) use of aspirin; R53.1 Weakness; Z86.73 Personal history of transient ischemic attack (TIA), and cerebral infarction without residual deficits; E78.5 Hyperlipidemia, unspecified; M79.10 Myalgia, unspecified site
CPT/HCPCS: 80048; 80076; 81001; 82274; 83690; 85025; 87631; 96361; 96374; 99283; A4216; J2405